=== PATIENT | male | born 1975 | race Caucasian/White ===

== ENCOUNTER → 2017-11-15 08:52 | Outpatient (CLI) | payer OTHER, SELFPAY ==
[2017-11-15 10:35] LABS: Absolute Lymphocyte Count 1.81 X10^3/ul (0.83-4.51); Absolute Neutrophil Count 2.4 X10^3/uL (2.0-7.7); Basophil# 0.03 X10^3/uL; Basophil% 0.6 % (0-1); Eosinophil# 0.22 X10^3/uL; Eosinophils% 4.6 % (0-5); Hematocrit 46.6 % (40-54); Hemoglobin 15.1 g/dl (13.0-16.5); Lymphocyte # 1.81 X10^3/ul (4.0); Lymphocyte % 37.6 % (19-41); Mean Corp Hgb Conc 32.4 g/gl (32-36); Mean Corpuscular Hgb 26.5 pg (27.0-32.0); Mean Corpuscular Volume 81.9 fL (80-94); Monocyte# 0.39 X10^3/uL; Monocyte% 8.1 % (0-10); Neutrophil # 2.37 X10^3/uL (2.7-7.7); Neutrophil % 49.1 % (47-70); Platelet Count 117 K/mm3 (150-450); RBC Distribution Width CV 13.6 % (11.6-14.6); RBC Distribution Width SD 40.7 fl (35.1-43.9); Red Blood Count 5.69 M/mm3 (4.6-6.2); White Blood Count 4.8 K/mm3 (4.4-11.0)
[2017-11-15 10:40] LABS: Differential Indicated SCAN CRITERIA MET; POSITIVE COUNT NO; POSITIVE DIFFERENTIAL NO; POSITIVE MORPHOLOGY YES
[2017-11-15 11:00] LABS: Microalbumin,Random Urine 5.5 mg/L (NO RANGE EST.); Microalbumin:Creatinine Ratio 3.6 mg/g CRE (<30 mg/g CRE)
[2017-11-15 12:07] LABS: AST(SGOT) 40 U/L (15-37); Alanine Aminotransfer ALT/SGPT 99 U/L (16-61); Albumin, Serum 3.6 g/dL (3.2-5.0); Alkaline Phosphatase 54 U/L (45-117); Anion Gap 7 (5-15); BUN 12 mg/dL (7-18); BUN/Creat Ratio 11.5 RATIO (10-20); CPK Total, Creatine Kinase 294 U/L (39-308); CRP < 2.90 mg/L (0.0-3.0); Calcium,Total 8.6 mg/dL (8.5-10.1); Chloride 108 mmol/L (98-107); Cholesterol 132 mg/dL (200); Creatinine, Serum 1.04 mg/dL (0.70-1.30); EST Glomerular Filtration Rate 83 mL/min (>60); Est Glom Filt Rate - Afr Amer 101 mL/min (>60); Globulin 3.5 g/dL (2.2-4.2); Glucose 82 mg/dL (74-106); High Density Lipoprotein 37 mg/dL; Potassium 4.1 mmol/L (3.5-5.1); Protein, Total 7.1 g/dL (6.4-8.2); Rheumatoid Factor < 10.0 IU/mL (<15); Sodium Level 143 mmol/L (136-145); Thyroid Stim Hormone (TSH) 1.49 uIU/mL (0.358-3.74); Triglycerides 113 mg/dL; Very Low Density Lipoprotein 23 mg/dL (5-40)
[2017-11-19 11:07] LABS: ANTINUCLEAR ANTIBODIES DIRECT Negative (Negative)
== END ==
PROVIDERS: Family Provider Family Medicine; PCP Family Medicine; Visit Provider Family Medicine
DX: R07.89 Other chest pain (principal)
CPT/HCPCS: 36415; 80053; 80061; 82043; 82550; 82570; 84443; 85025; 86038; 86140; 86431

== ENCOUNTER → 2017-12-06 13:46 | Outpatient (CLI) | payer OTHER, SELFPAY ==
--- NOTE | 2017-12-06 13:48 | ECHOD_ITS ---
Reason For Study: Atypical Chest Pain Procedure This was a 2D Doppler, Color Flow transthoracic echocardiogram. Exam performed in department. Left Ventricle Normal LV size. Mild concentric left ventricular hypertrophy. Left ventricular systolic function is normal. The estimated ejection fraction is 55 %. Stage 1 diastolic dysfunction. No regional wall motion abnormalities noted. Right Ventricle Normal RV size. Normal systolic function. Atria Normal left atrium. Normal right atrium. Mitral Valve Normal mitral valve. Tricuspid Valve Normal tricuspid valve. Mild tricuspid valve insufficiency. Pulmonary artery systolic pressure is 32 mmHg. Aortic Valve Normal aortic valve. Trisinus/trileaflet aortic valve. Pulmonic Valve Normal pulmonic valve. Great Vessels Normal aortic root. The pulmonary artery is normal size. Normal inferior vena cava. Pericardium/Pleural No pericardial effusion. MMode/2D Measurements & Calculations LVIDd: 5.7 cm IVSd: 1.3 cm Ao root diam: 3.7 cm LVIDs: 3.8 cm LVPWd: 1.2 cm LA dimension: 3.5 cm RVDd: 3.7 cm FS: 32.4 % LAV(MOD-bp): 55.0 ml LVAd ap4: 41.9 cm2 SV(MOD-sp4): 101.0 ml LAV(MOD-bp) Indexed: 23.6 ml/m2 EDV(MOD-sp4): 160.5 ml LAV(MOD-sp2): 63.6 ml EDV(sp4-el): 170.1 ml LAV(MOD-sp4): 42.3 ml LVAs ap4: 23.5 cm2 ESV(MOD-sp4): 59.5 ml ESV(sp4-el): 60.4 ml EF(MOD-sp4): 62.9 % EF(sp4-el): 64.5 % SV(sp4-el): 109.8 ml LA A4 area: 16.4 cm2 RA A4 area: 14.2 cm2 Time Measurements MV dec time: 0.18 sec Doppler Measurements & Calculations MV E max duke: 56.0 cm/sec Lat Peak E' Duke: 9.4 cm/sec Med Peak E' Duke: 11.1 cm/sec MV A max duke: 67.6 cm/sec E/E' lat: 5.9 E/E' med: 5.0 MV E/A: 0.83 MV V2 max: 73.3 cm/sec MV P1/2t max duke: 66.4 cm/sec Ao V2 max: 101.4 cm/sec MV max P.2 mmHg MV P1/2t: 88.6 msec Ao max P.1 mmHg MV V2 mean: 43.3 cm/sec MV dec slope: 219.6 cm/sec2 Ao V2 mean: 72.5 cm/sec MV mean P.88 mmHg MVA(P1/2t): 2.5 cm2 Ao mean P.3 mmHg MV V2 VTI: 21.5 cm Ao V2 VTI: 21.6 cm LV V1 max: 91.6 cm/sec PA V2 max: 92.9 cm/sec TR max duke: 258.5 cm/sec LV V1 max P.4 mmHg TR max P.7 mmHg LV V1 mean P.7 mmHg LV V1 mean: 60.3 cm/sec LV V1 VTI: 18.8 cm Interpretation Summary Normal LV size. Mild concentric left ventricular hypertrophy. Left ventricular systolic function is normal. The estimated ejection fraction is 55 %. Stage 1 diastolic dysfunction. Mild tricuspid valve insufficiency. Ordering Physician: Pa Maynard Referring Physician: Pa Maynard Performed By: Wayne Galarza RCS
== END ==
PROVIDERS: Family Provider Family Medicine; PCP Family Medicine; Visit Provider Family Medicine
DX: R07.89 Other chest pain (principal)
CPT/HCPCS: 93306

== ENCOUNTER → 2017-12-13 11:00 | Outpatient (CLI) | payer OTHER, SELFPAY ==
--- NOTE | 2017-12-13 15:17 | STRESSREP ---
Stress Test Report Exercise stress test. 42-year-old man with a history of atypical chest pain. Stress protocol: Resting EKG demonstrates normal sinus rhythm with a rate of 87 bpm normal intervals and noted resting blood pressure 120/76 mmHg. The patient exercised according to regular James protocol for total duration of 10 minutes and 21 seconds. The patient completed 1 minutes and 21 seconds into stage IV of the James protocol. The maximum heart rate attained was 250 bpm which was a narrow complex tachycardia which was 140% of the maximum predicted heart rate. The patient appeared to have gone into this rhythm during stage IV at approximately 10 minutes and 17 seconds. There was associated mild lightheadedness. The entire duration of the above was approximately 5 seconds. The patient then broke out of this rhythm and went back into a sinus tachycardia. No chest pain was noted. The resting blood pressure 120/76 with a peak blood pressure 144/84 mmHg. Rate pressure product was 24,300. Conclusion: Exercise stress test with no EKG criteria for ischemia at a high workload Supraventricular tachyarrhythmia noted during exercise spontaneously converting back to sinus rhythm. Patient achieved 12.4 metabolic equivalents.
== END ==
PROVIDERS: Family Provider Family Medicine; PCP Family Medicine; Referring Provider Internal Medicine Cardiovascular Disease; Visit Provider Internal Medicine Cardiovascular Disease
DX: R07.9 Chest pain, unspecified (principal)
CPT/HCPCS: 93017

== ENCOUNTER → 2018-06-28 | Outpatient (CLI) | payer OTHER, SELFPAY ==
--- NOTE | 2018-06-28 09:29 | MRI_ITS ---
HISTORY: RIGHT shoulder pain, s/p fall on ice 3 1/2 mos ago, limited r.o.m EXAMINATION: MR Shoulder W/O Contrast TECHNIQUE: Multiplanar and multisequence MR images of the right shoulder. IV Contrast dosage and agent: None. COMPARISON: None FINDINGS: The right AC joint is preserved. No cuff impingement. Rotator cuff: The rotator cuff is intact without findings of tear, atrophy, or significant tendinosis. Articular cartilage: Cartilage is preserved. No joint effusion. No fluid collections within the subacromial/subdeltoid bursa. The bicipital long head tendon is normal in position. Bones: No fracture, marrow edema, or avascular necrosis. Several small subcortical cysts of the posterolateral humeral head beneath the infraspinatus. Not significant. MRI/Upper Ext Joint Only(Routine) IMPRESSION: 1. Negative exam. Intact rotator cuff. No bursitis or impingement seen, right shoulder. at 0227 Reported and signed by: Francois Oleary MD Electronically Signed: Francois Oleary, at 2:26 EDT Tel , Service support ,
== END | disposition home or self-care (01) ==
PROVIDERS: Family Provider Family Medicine; PCP Family Medicine; Referring Provider Physician Assistant; Visit Provider Physician Assistant
DX: M25.511 Pain in right shoulder (principal)
CPT/HCPCS: 73221

== ENCOUNTER 2018-09-13 12:00 | Outpatient (RCR) | payer OTHER, SELFPAY ==
--- NOTE | 2018-07-10 14:31 | HP.PTEVAL_ITS ---
Patient's Visit Information FELIZ KRUEGER is a 43 year old M referred to Physical Therapy by Misael Gastelum PA-C with a diagnosis of RIGHT SHOULDER PAIN. Date of Evaluation: 07/10/18 Physical Therapist: Raul Keller PT, Cert MDT, [facility] - Visit Plan Frequency: 2x /Week Duration: 4 Weeks Plan: INTERVENTIONS RTC/SCPULAR STRENGTHENING,POSTURAL EXERCISES,MODLATIES NEEDED - Subjective Findings: This 43 y/o male presents to physical therapy with right shoulder pain. Patient injuried in Feb slipped on ice fell on right side . Patient developed right shoulder pain progressively worse then [facility] had MRI ,tried cortizone injection. Patient seen several consults. Patient pain located posterior delltoid. Aggraveting factors adduction ,reaching backward ,extreme pain. Patient denies parathesia/tingling. Sleeping okay at night. Patient symptoms affects QOL and function with ADL's. Patient symptoms affect function and housework .patient has no pain at rest. 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 PLAPATION: unremarkable. NEURO: INTACT. AROM: shoulder flexion 140 degrees,abduction 145 degrees, ER 90 degrees,pain with OP ,IR 50 DEGREES pain. MMT: RTC 4/5,Deltoid 4/5,MT/LT/ROMBOIDS 3/5 pain ,protraction 4-/5. CERVICAL ROM: WNL no pain - Special Tests C/S Radiculapathy - Left Upper limb tension test: Negative C/S Radiculapathy - Right Upper limb tension test: Negative C/S Radiculapathy - Left Spurlings: Negative C/S Radiculapathy - Right Spurlings: Negative - Goals Goal 1:: Independant with HEP Goal Time Frame: 4-6 Weeks Goal 2:: Decrease pain by 60% or greater to improve function with ADL'S Goal Time Frame: 4-6 Weeks Goal 3:: Patient improve AROM symmtrical right to left WNL for function. Goal Time Frame: 4-6 Weeks Goal 4:: Patient to improve strength middle/lower traps/romboids by 4-/5 to improve function. Goal Time Frame: 4-6 Weeks Goal 5:: Patient to improve quick dash by 5 points or greater to improve function. Goal Time Frame: 4-6 Weeks - Rehabilitation Potential Physical Therapy Diagnosis: This patient has right shoulder capsular strain with weakness of scapular muscles MT/LT/rhomboids with decrease ROM affects ADL'S Rehabilitation Potential: Good - Anticipated Interventions Patient/Client Instruction: Educate patient on: Condition, Plan of Care For the Purpose of:: To decrease pain, To increase ROM, To improve muscle performance and motor function, To improve ability to perform ADL's, To increase tolerance to activity/condition/position, To decrease level of supervision to perform tasks, To improve health of tissue, To decrease soft tissue restriction, To increase flexibility/ROM, To improve ability to perform tasks related to life management Therapeutic Exercise to Include: Strength training, Postural training, Flexibilty training, Active ROM, Scapular Strength/Stabilization Comment: RTC For the Purpose of:: To decrease pain, To increase ROM, To improve muscle performance and motor function, To improve ability to perform ADL's, To increase tolerance to activity/condition/position, To improve performance and independence with ADL's, To improve ability of physical actions for home/community/work/leisure, To improve health of tissue, To decrease soft tissue restriction, To increase flexibility/ROM, To reduce risk of recurrence, To improve ability to perform tasks related to life management TENS: Yes IF ES: Yes Cryotherapy (ice pack, ice massage): Yes Thermo therapy (hot pack): Yes Ultrasound (thermal/non thermal): Yes For the Purpose of:: To decrease pain, To increase ROM, To improve nutrient delivery to tissue, To increase oxygenation perfusion, To improve health of tissue, To decrease soft tissue restriction Thank you for the opportunity to evaluate your patient. For Medicare and Medicare HMO plans, please review the plan of care and approve it. It will need to be FAXED BACK to us at [phone] for Medicare purposes. For Medicare only, by signing this I certify the plan of care. Please let me know if there are questions or concerns regarding this plan of care. Physician Signature: Date:
--- NOTE | 2018-07-10 14:39 | HP.PTEVAL ---
Patient's Visit Information FELIZ KRUEGER is a 43 year old M referred to Physical Therapy by Misael Gastelum PA-C with a diagnosis of RIGHT SHOULDER PAIN. Date of Evaluation: 07/10/18 Physical Therapist: Raul Keller PT, Cert MDT, [facility] - Visit Plan Frequency: 2x /Week Duration: 4 Weeks Plan: INTERVENTIONS RTC/SCPULAR STRENGTHENING,POSTURAL EXERCISES,MODLATIES NEEDED - Subjective Findings: This 43 y/o male presents to physical therapy with right shoulder pain. Patient injuried in Feb slipped on ice fell on right side . Patient developed right shoulder pain progressively worse then [facility] had MRI ,tried cortizone injection. Patient seen several consults. Patient pain located posterior delltoid. Aggraveting factors adduction ,reaching backward ,extreme pain. Patient denies parathesia/tingling. Sleeping okay at night. Patient symptoms affects QOL and function with ADL's. Patient symptoms affect function and housework .patient has no pain at rest. 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 PLAPATION: unremarkable. NEURO: INTACT. AROM: shoulder flexion 140 degrees,abduction 145 degrees, ER 90 degrees,pain with OP ,IR 50 DEGREES pain. MMT: RTC 4/5,Deltoid 4/5,MT/LT/ROMBOIDS 3/5 pain ,protraction 4-/5. CERVICAL ROM: WNL no pain - Special Tests C/S Radiculapathy - Left Upper limb tension test: Negative C/S Radiculapathy - Right Upper limb tension test: Negative C/S Radiculapathy - Left Spurlings: Negative C/S Radiculapathy - Right Spurlings: Negative R Shoulder External Rotation Lag Test - RC Tear: Negative R Shoulder Supine Impingement Test - RC Tear: Negative R Shoulder Lift Off Test - Subscapular Tear: Negative R Shoulder Drop Sign - IS Test: Negative R Shoulder Empty Can - SS: Negative R Shoulder Belly Press - SupScap: Negative R Shoulder Neer - Impingement: Positive R Shoulder [place] - Impingement: Positive R Shoulder Yeargasons - SLAP: Negative R Shoulder Apprehension Test - Anterior Instability: Negative R Shoulder Sulcus Sign - Inferior Laxity: Negative R Shoulder Apprehension/Relocaton - SLAP: Negative R Shoulder AC Resisted - AC: Negative - Goals Goal 1:: Independant with HEP Goal Time Frame: 4-6 Weeks Goal 2:: Decrease pain by 60% or greater to improve function with ADL'S Goal Time Frame: 4-6 Weeks Goal 3:: Patient improve AROM symmtrical right to left WNL for function. Goal Time Frame: 4-6 Weeks Goal 4:: Patient to improve strength middle/lower traps/romboids by 4-/5 to improve function. Goal Time Frame: 4-6 Weeks Goal 5:: Patient to improve quick dash by 5 points or greater to improve function. Goal Time Frame: 4-6 Weeks - Rehabilitation Potential Physical Therapy Diagnosis: This patient has right shoulder capsular strain with weakness of scapular muscles MT/LT/rhomboids with decrease ROM affects ADL'S Rehabilitation Potential: Good - Anticipated Interventions Patient/Client Instruction: Educate patient on: Condition, Plan of Care For the Purpose of:: To decrease pain, To increase ROM, To improve muscle performance and motor function, To improve ability to perform ADL's, To increase tolerance to activity/condition/position, To decrease level of supervision to perform tasks, To improve health of tissue, To decrease soft tissue restriction, To increase flexibility/ROM, To improve ability to perform tasks related to life management Therapeutic Exercise to Include: Strength training, Postural training, Flexibilty training, Active ROM, Scapular Strength/Stabilization Comment: RTC For the Purpose of:: To decrease pain, To increase ROM, To improve muscle performance and motor function, To improve ability to perform ADL's, To increase tolerance to activity/condition/position, To improve performance and independence with ADL's, To improve ability of physical actions for home/community/work/leisure, To improve health of tissue, To decrease soft tissue restriction, To increase flexibility/ROM, To reduce risk of recurrence, To improve ability to perform tasks related to life management TENS: Yes IF ES: Yes Cryotherapy (ice pack, ice massage): Yes Thermo therapy (hot pack): Yes Ultrasound (thermal/non thermal): Yes For the Purpose of:: To decrease pain, To increase ROM, To improve nutrient delivery to tissue, To increase oxygenation perfusion, To improve health of tissue, To decrease soft tissue restriction Thank you for the opportunity to evaluate your patient. For Medicare and Medicare HMO plans, please review the plan of care and approve it. It will need to be FAXED BACK to us at [phone] for Medicare purposes. For Medicare only, by signing this I certify the plan of care. Please let me know if there are questions or concerns regarding this plan of care. Physician Signature: Date:
--- NOTE | 2018-10-10 15:17 | HP.PTDCSUM_ITS ---
HP - PT D/C Summary It has been my pleasure to treat FELIZ KRUEGER under orders from Misael Gastelum PA-C, for the diagnosis of RIGHT SHOULDER PAIN for a total of 14 visit(s). Discharge Date: 10/10/18 Please see the following information for a summary of their discharge status. - Subjective Subjective: Seen DR looked at MRI conts to be -. Pain is better overall - Pain Right Shoulder Pain Intensity (Out of 10): 1 - Overall Improvement % Improvement: 50 - Objective Objective/Function: Марина tx well with tx well with strengthening ex's no pain. RTC: 4/5. MIDDLE TRAPS 4-/5 mild pain. DELTOID 4/5 A,L 4/5 - Goals Goal 1:: Independant with HEP Goal 2:: Decrease pain by 60% or greater to improve function with ADL'S Goal 3:: Patient improve AROM symmtrical right to left WNL for function. Goal 4:: Patient to improve strength middle/lower traps/romboids by 4-/5 to improve function. Goal 5:: Patient to improve quick dash by 5 points or greater to improve function. - Plan Plan: Cont with POC 1-2x/wk for 4weeks RTC/SCAPULAR,POSTURAL EX'S - D/C Information Discharge Comments: Pateint decided to complete PT at [facility] If there are questions or concerns regarding this patient's physical therapy, please feel free to call me at [phone]. Thank you for the referral of this patient. Sincerely, Raul Keller, PT, Cert MDT, [facility]
== END 2018-09-13 19:00 | disposition home or self-care (01) ==
LOC: PT 12:00
PROVIDERS: Family Provider Family Medicine; PCP Family Medicine; Referring Provider Physician Assistant; Visit Provider Physician Assistant
DX: M25.511 Pain in right shoulder (principal)
CPT/HCPCS: 97014; 97110; 97161; 97530; G0283

== ENCOUNTER → 2020-05-28 09:31 | Outpatient (CLI) | payer OTHER, SELFPAY ==
[2017-12-12 10:12] VITALS: BMI 30.4
[2020-05-28 10:12] LABS: Absolute Lymphocyte Count 1.78 X10^3/uL (0.83-4.51); Absolute Neutrophil Count 2.9 X10^3/uL (2.0-7.7); Basophil# 0.05 X10^3/uL; Eosinophil# 0.16 X10^3/uL; Eosinophils% 3.1 % (0-5); Hematocrit 48.8 % (40-54); Lymphocyte # 1.78 X10^3/ul (4.0); Mean Corp Hgb Conc 30.7 g/dL (32-36); Mean Corpuscular Hgb 26.3 pg (27.0-32.0); Mean Corpuscular Volume 85.6 fL (80-94); Mean Platelet Vol. 13.4 fl (6.2-12.0); Monocyte# 0.37 X10^3/uL; Monocyte% 7.1 % (0-10); NRBC Flagged by Analyzer 0 % (0-5); Neutrophil # 2.86 X10^3/uL (2.7-7.7); Neutrophil % 54.4 % (47-70); Platelet Count 132 K/mm3 (150-450); RBC Distribution Width CV 13.4 % (11.6-14.6); RBC Distribution Width SD 42.1 fl (35.1-43.9); White Blood Count 5.2 K/mm3 (4.4-11.0)
[2020-05-28 10:38] LABS: ALB/GLOB Ratio 1.2 RATIO (0.9-2.4); AST(SGOT) 29 U/L (15-37); Alanine Aminotransfer ALT/SGPT 77 U/L (16-61); Albumin, Serum 3.8 g/dL (3.2-5.0); Alkaline Phosphatase 64 U/L (45-117); Anion Gap 5 (5-15); BUN 14 mg/dL (7-18); BUN/Creat Ratio 14.1 RATIO (10-20); Calcium,Total 8.8 mg/dL (8.5-10.1); Chloride 108 mmol/L (98-107); Cholesterol 147 mg/dL (200); Creatinine, Serum 0.99 mg/dL (0.70-1.30); EST Glomerular Filtration Rate 87 mL/min (>60); Est Glom Filt Rate - Afr Amer 105 mL/min (>60); Globulin 3.2 g/dL (2.2-4.2); Glucose 90 mg/dL (74-106); High Density Lipoprotein 46 mg/dL; Potassium 4.4 mmol/L (3.5-5.1); Sodium Level 140 mmol/L (136-145); Triglycerides 135 mg/dL; Very Low Density Lipoprotein 27 mg/dL (5-40)
[2020-05-28 10:40] LABS: Hemoglobin A1c 5.5 % (3.8-5.6)
== END ==
PROVIDERS: PCP Family Medicine; Referring Provider Family Medicine; Visit Provider Family Medicine
DX: K76.0 Fatty (change of) liver, not elsewhere classified (principal)
CPT/HCPCS: 36415; 80053; 80061; 83036; 85025

== ENCOUNTER → 2023-02-22 | Outpatient (CLI) | payer OTHER, SELFPAY ==
[2023-02-22 16:02] LABS: Absolute Lymphocyte Count 2.32 X10^3/uL (0.83-4.51); Absolute Neutrophil Count 6.3 X10^3/uL (2.0-7.7); Basophil# 0.07 X10^3/uL; Basophil% 0.7 % (0-1); Eosinophil# 0.19 X10^3/uL; Hematocrit 47.9 % (40-54); Hemoglobin 15.2 g/dL (13.0-16.5); Lymphocyte # 2.32 X10^3/ul (0.83-4.51); Lymphocyte % 24.3 % (19-41); Mean Corp Hgb Conc 31.7 g/dL (32-36); Mean Corpuscular Hgb 26.9 pg (27.0-32.0); Mean Corpuscular Volume 84.6 fL (80-94); Mean Platelet Vol. 13.1 fl (6.2-12.0); Monocyte# 0.63 X10^3/uL; Monocyte% 6.6 % (0-10); NRBC Flagged by Analyzer 0 % (0-5); Neutrophil # 6.29 X10^3/uL (2.7-7.7); Neutrophil % 66.1 % (47-70); Platelet Count 171 K/mm3 (150-450); RBC Distribution Width CV 13.5 % (11.6-14.6); Red Blood Count 5.66 M/mm3 (4.6-6.2); White Blood Count 9.5 K/mm3 (4.4-11.0)
[2023-02-22 16:21] LABS: Homocysteine 6.8 umol/L (3.2-10.7)
[2023-02-22 16:37] LABS: Insulin 38.6 mU/L (2.6-37.6); Vitamin B12 567 pg/mL (211-911); Vitamin D,25 Hydroxy 50.2 ng/mL
[2023-02-22 16:53] LABS: Hemoglobin A1c 5.5 % (3.8-5.6)
[2023-02-22 19:04] LABS: AST(SGOT) 40 U/L (15-37); Alanine Aminotransfer ALT/SGPT 47 U/L (16-61); Albumin, Serum 3.9 g/dL (3.2-5.0); Alkaline Phosphatase 64 U/L (45-117); Anion Gap 6 (5-15); BUN 22 mg/dL (7-18); BUN/Creat Ratio 22.7 RATIO (10-20); CRP, High Sensitivity Cardiac 0.53 mg/L; Calcium,Total 8.8 mg/dL (8.5-10.1); Chloride 104 mmol/L (98-107); Cholesterol 179 mg/dL (200); Creatinine, Serum 0.97 mg/dL (0.70-1.30); EST Glomerular Filtration Rate 88 mL/min (>60); Est Glom Filt Rate - Afr Amer 107 mL/min (>60); Ferritin 43 ng/mL (26-388); Free T3 2.9 pg/mL (2.18-3.98); Globulin 3.8 g/dL (2.2-4.2); Glucose 95 mg/dL (74-106); High Density Lipoprotein 50 mg/dL; PSA,Total - Annual Screen 2.18 ng/mL (0.00-4.00); Potassium 3.9 mmol/L (3.5-5.1); Protein, Total 7.7 g/dL (6.4-8.2); Sodium Level 140 mmol/L (136-145); Thyroid Stim Hormone (TSH) 1.36 uIU/mL (0.358-3.74); Triglycerides 345 mg/dL; Uric Acid 6.1 mg/dL (3.5-7.2); Very Low Density Lipoprotein 69 mg/dL (5-40)
[2023-03-07 17:07] LABS: Lipoprotein A 107.6 nmol/L (<75.0); Testosterone, % Free 3.55 % (1.50-4.20); Testosterone, Free 8.02 ng/dL (5.00-21.00); Testosterone, Total 226 ng/dL (264-916)
== END | disposition home or self-care (01) ==
PROVIDERS: PCP Family Medicine; Referring Provider Family Medicine; Visit Provider Family Medicine
DX: Z12.5 Encounter for screening for malignant neoplasm of prostate (principal); K76.0 Fatty (change of) liver, not elsewhere classified; R76.8 Other specified abnormal immunological findings in serum; E66.9 Obesity, unspecified; Z68.33 Body mass index [BMI] 33.0-33.9, adult
CPT/HCPCS: 36415; 80053; 80061; 82306; 82533; 82607; 82670; 82728; 82746; 83036; 83090; 83525; 83695; 84153; 84402; 84403; 84439; 84443; 84481; 84550; 85025; 86141; G0103

== ENCOUNTER → 2023-03-17 | Outpatient (CLI) | payer OTHER, SELFPAY ==
[2023-03-17 10:53] LABS: Insulin 7.9 mU/L (2.6-37.6)
[2023-03-17 10:56] LABS: ALB/GLOB Ratio 0.9 RATIO (0.9-2.4); AST(SGOT) 38 U/L (15-37); Alanine Aminotransfer ALT/SGPT 42 U/L (16-61); Albumin, Serum 3.4 g/dL (3.2-5.0); Alkaline Phosphatase 56 U/L (45-117); Anion Gap 4 (5-15); BUN 17 mg/dL (7-18); BUN/Creat Ratio 17.7 RATIO (10-20); Calcium,Total 8.7 mg/dL (8.5-10.1); Chloride 107 mmol/L (98-107); Creatinine, Serum 0.96 mg/dL (0.70-1.30); EST Glomerular Filtration Rate 89 mL/min (>60); Est Glom Filt Rate - Afr Amer 108 mL/min (>60); Globulin 3.7 g/dL (2.2-4.2); Glucose 92 mg/dL (74-106); Potassium 4.2 mmol/L (3.5-5.1); Protein, Total 7.1 g/dL (6.4-8.2); Sodium Level 139 mmol/L (136-145)
[2023-03-19 12:08] LABS: CHOLESTEROL TOTAL 167 mg/dL (100-199); HDL-C 52 mg/dL (>39); HDL-P TOTAL 31.1 umol/L (>=30.5); INSULIN RESISTANCE SCORE 42 (<=45); LDL SIZE 21.2 nm (>20.5); LDL-C (NIH CALC) 101 mg/dL (0-99); LDL-P 1197 nmol/L (<1000); SMALL LDL-P 548 nmol/L (<=527); TRIGLYCERIDES 72 mg/dL (0-149)
[2023-03-25 09:07] LABS: Sex Hormone-binding Globulin 22.7 nmol/L (16.5-55.9); Testosterone, % Free 2.74 % (1.50-4.20); Testosterone, Free 10.63 ng/dL (5.00-21.00); Testosterone, Total 388 ng/dL (264-916)
== END | disposition home or self-care (01) ==
PROVIDERS: PCP Family Medicine; Referring Provider Family Medicine; Visit Provider Family Medicine
DX: K76.0 Fatty (change of) liver, not elsewhere classified (principal); E78.41 Elevated Lipoprotein(a); R79.89 Other specified abnormal findings of blood chemistry; E16.1 Other hypoglycemia
CPT/HCPCS: 36415; 80053; 80061; 83525; 83704; 84270; 84402; 84403

== ENCOUNTER → 2024-10-13 | Outpatient (CLI) | payer OTHER, SELFPAY ==
[2024-10-13 09:26] LABS: Hematocrit 45.1 % (40-54); Hemoglobin 14.5 g/dL (13.0-16.5); Immature Granulocytes Count 0.010 X10^3/uL (0.0-0.0); Mean Corp Hgb Conc 32.2 g/dL (32-36); Mean Corpuscular Volume 85.4 fL (80-94); Mean Platelet Vol. 13.3 fl (6.2-12.0); NRBC Flagged by Analyzer 0 % (0-5); Platelet Count 127 K/mm3 (150-450); RBC Distribution Width CV 13.2 % (11.6-14.6); RBC Distribution Width SD 41.4 fl (35.1-43.9); Red Blood Count 5.28 M/mm3 (4.6-6.2); White Blood Count 4.4 K/mm3 (4.4-11.0)
[2024-10-13 11:15] LABS: AST(SGOT) 34 U/L (<=37); Alanine Aminotransfer ALT/SGPT 39 U/L (<=46); Albumin, Serum 4.1 g/dL (3.5-5.0); Alkaline Phosphatase 57 U/L (40-129); Anion Gap 10 (5-15); BUN 24 mg/dL (4-19); BUN/Creat Ratio 24.0 RATIO (10-20); Calcium,Total 9.1 mg/dL (7.6-11.0); Carbon Dioxide 26.4 mmol/L (21.0-32.0); Chloride 105 mmol/L (98-108); Cholesterol 181 mg/dL (<=200); Follicle Stimulating Hormone 2.2 mIU/mL; Globulin 2.7 g/dL (2.2-4.2); Glucose 92 mg/dL (70-99); Low Density Lipoprotein Calc. 114 mg/dL; Magnesium 2.1 mg/dL (1.5-2.2); PSA,Total - Annual Screen 1.12 ng/mL (0.02-4.00); Potassium 4.1 mmol/L (3.3-5.1); Triglycerides 109 mg/dL; Very Low Density Lipoprotein 22 mg/dL (5-40); Vitamin D,25 Hydroxy 37.0 ng/mL (30-100); cholesterol:hdl ratio screen 3.99
== END | disposition home or self-care (01) ==
LOC: LAB 08:08
PROVIDERS: PCP Family Medicine; Visit Provider Family Medicine
DX: Z12.5 Encounter for screening for malignant neoplasm of prostate (principal); K76.0 Fatty (change of) liver, not elsewhere classified; R79.89 Other specified abnormal findings of blood chemistry
CPT/HCPCS: 36415; 80053; 80061; 82306; 82627; 82670; 83001; 83002; 83036; 83525; 83735; 84100; 84146; 84153; 84270; 84402; 84403; 85025; 82626; G0103

== ENCOUNTER → 2024-10-29 | Outpatient (CLI) | payer OTHER, SELFPAY ==
--- OUTSIDE RECORDS SUMMARY | 2024-10-29 07:11 | XMS RPT_ITS | CCD ---
Author Organization [facility] Care Team Providers Care Manufacturing Engineer Assembly Name Role Phone Caesar MARRUFO, Dr. Winn Primary Care Provider Caesar MARRUFO, Dr. Winn Attending Provider Pa Maynard Primary Care Unavailable Pa Maynard Attending Unavailable Pa Maynard Attending Unavailable Pa Maynard Referring Unavailable Pa Maynard Primary Care Unavailable Problems Problem Classification Problem Date Documented Date Episodic/Chronic Heart valve disorders (3 sources) Tricuspid incompetence, non-rheumatic ; Translations: [Nonrheumatic tricuspid (valve) insufficiency] 12-11-2017 Chronic Nonspecific chest pain (3 sources) Chest pain; Translations: [Chest pain, unspecified] 12-11-2017 Episodic Other liver diseases (1 source) Fatty (change of) liver, not elsewhere classified; Translations: [Fatty (change of) liver, not elsewhere classified] Onset: 10-22-2024 Chronic Other screening for suspected conditions (not mental disorders or infectious disease) (4 sources) Electrocardiogram abnormal; Translations: [Abnormal electrocardiogram [ECG] [EKG]] Onset: 10-15-2024 12-11-2017 Episodic Results Test Name Value Interpretation Reference Range Facility DHEA Sulfateon 10-16-2024 DHEA SULFATE 145.0 ug/dL Normal 71.6-375.4 [facility] Comment on above: Order Comment: Order Date: 10/07/24 Order Info: 0184-1 - CBCD Performed By: #### L 3100.5310, L500.4050, L501.9910, L3500.0000, L100.0100 #### [facility] [address] [place], [address] Insulin Levelon 10-16-2024 INSULIN,FASTING 10.5 uIU/mL Normal 2.6-24.9 [facility] Comment on above: Order Comment: Order Date: 10/07/24 Order Info: 0184- - CBCD Performed By: #### L 3100.5310, L500.4050, L501.9910, L3500.0000, L100.0100 #### [facility] [address] [place], [place], [address] PROLACTIN 4465on 10-16-2024 PROLACTIN 17.6 ng/mL Normal 3.9-22.7 [facility] Comment on above: Order Comment: Order Date: 10/07/24 Order Info: 0184 - CBCD Performed By: #### L 3100.5310, L500.4050, L501.9910, L3500.0000, L100.0100 #### [facility] [address] [place], [place], [address] Sex Hormone-binding Globulin on 10-16-2024 SHBG 16.8 nmol/L Normal 16.5-55.9 [facility] Comment on above: Order Comment: Order Date: 10/07/24 Order Info: 0184- - CBCD Result Comment: Perf ormed at: [facility] [address] [id number] [employer] Officer [employer]: Brennen Newberry PhD, Phone: [phone] Performed at: [facility] [address] [id number] Weapons Officer [employer]: Beba Siegel MD, Phone: [phone] Performed By: #### L 3100.5310, L500.4050, L501.9910, L3500.0000, L100.0100 #### [facility] [address] [place], [place], [address] Testosterone, Total / Freeon 10-16-2024 TESTOSTER,FREE 9.78 ng/dL Normal 5.00-21.00 [facility] Comment on above: Order Comment: Order Date: 10/07/24 Order Info: 0024-1 - TESTF N Performed By: #### L 3100.5310, L500.4050, L501.9910, L3500.0000, L100.0100 #### [facility] [address] [place], [address] TESTOSTER,TOTAL 286 ng/dL Normal 264-916 [facility] Comment on above: Order Comment: Order Date: 10/07/24 Order Info: 0024-1 - TESTF N Result Comment: Adul t male reference interval is based on a population of healthy nonobese males (BMI <30) between 19 and 39 years old. ledy Samayoa.al. JCEM 2017,102;4415-8414. PMID: [id number]. Performed By: #### L 3100.5310, L500.4050, L501.9910, L3500.0000, L100.0100 #### [facility] [address] [place], [address] TESTOSTERONE,%F 3.42 Normal 1.50-4.20 [facility] Comment on above: Order Comment: Order Date: 10/07/24 Order Info: 0024-1 - TESTF N Performed By: #### L 3100.5310, L500.4050, L501.9910, L3500.0000, L100.0100 #### [facility] [address] [place], [address] L3410.9992on 10-15-2024 [facility] Misc. COMMENT Normal . [facility] Comment on above: Order Comment: Order Date: 10/07/24 Order Info: 0184-1 - CBCD Result Comment: Test Ordered: 137650 Apolipoprotein B Apolipoprotein B 103 [H ] mg/dL BN Reference Range: <90 Desirable < 90 Borderline High 90 - 99 High 100 - 130 Very High >130 ASCVD RISK THERAPEUTIC TARGET CATEGORY APO B (mg/dL) Very High Risk <80 (if extreme risk <70) High Risk <90 Moderate Risk <90 Performed at: - [address] [id number] Weapons Officer [employer]: Beba Siegel MD, Phone: [phone] Performed at: - [facility] [place] [address] [place], [place] [id number] Weapons Officer [employer] Activity: Brennen Newberry PhD, Phone: [phone] Performed By: #### L 3100.5310, L500.4050, L501.9910, L3500.0000, L100.0100 #### [facility] [place], [address] Absolute lymphocyte countOrd ered By: Pa Maynard on 10-13-2024 Lymphocytes Auto (Unsp spec) [#/Vol] 1.78 10*3/uL 0.83-4.51 [facility] Absolute neutrophil countOrd ered By: Pa Maynard on 10-13-2024 Neutrophils (Bld) [#/Vol] 2.0 10*3/uL 2.0-7.7 [facility] Anion gap in Serum or Plasma Ordered By: Pa Maynard on 10-13-2024 Anion gap [Moles/Vol] 10 mmol/L 5-15 [facility] Automated lymphocyte count a s percentage of total leukocytesOrdered By: Pa Maynard on 10-13-2024 Lymphocytes/100 WBC Auto (Unsp spec) 40.5 % - [facility] BUN/creatinine ratioOrdered By: Pa Maynard on 10-13-2024 Urea nitrogen/Creatinine [Mass ratio] 24.0 mg/mg High 10-20 [facility] Basophil percentageOrdered B y: Pa Maynard on 10-13-2024 Basophils/100 WBC (Bld) 0.9 % 0-1 [facility] Bilirubin, totalOrdered By: Pa Maynard on 10-13-2024 Bilirubin [Mass/Vol] 0.43 mg/dL 0.00-1.30 [facility] CBC W/Diff, Automatedon 09-26 Absolute Lymph 1.78 X10 3/uL Normal 0.83-4.51 [facility] Comment on above: Order Comment: Order Date: 10/07/24 Order Info: 0184-1 - CBCD Performed By: #### L 3100.5310, L500.4050, L501.9910, L3500.0000, L100.0100 #### [facility] [address] [place], [address] Absolute Neut 2.0 X10 3/uL Normal 2.0-7.7 [facility] Comment on above: Order Comment: Order Date: 10/07/24 Order Info: 0184-1 - CBCD Performed By: #### L 3100.5310, L500.4050, L501.9910, L3500.0000, L100.0100 #### [facility] [address] [place], [address] Basophils/100 WBC (Bld) 0.9 % Normal 0-1 [facility] Comment on above: Order Comment: Order Date: 10/07/24 Order Info: 0184-1 - CBCD Performed By: #### L 3100.5310, L500.4050, L501.9910, L3500.0000, L100.0100 #### [facility] [address] [place], [address] Eosinophils/100 WBC (Bld) 5.5 % High 0-5 [facility] Comment on above: Order Comment: Order Date: 10/07/24 Order Info: 0184-1 - CBCD Performed By: #### L 3100.5310, L500.4050, L501.9910, L3500.0000, L100.0100 #### [facility] [address] [place], [address] Erythrocyte distribution width (RBC) [Ratio] 13.2 % Normal 11.6-14.6 [facility] Comment on above: Order Comment: Order Date: 10/07/24 Order Info: 0184-1 - CBCD Performed By: #### L 3100.5310, L500.4050, L501.9910, L3500.0000, L100.0100 #### [facility] [address] [place], [address] Hematocrit (Bld) [Volume fraction] 45.1 % Normal 40-54 [facility] Comment on above: Order Comment: Order Date: 10/07/24 Order Info: 0184-1 - CBCD Performed By: #### L 3100.5310, L500.4050, L501.9910, L3500.0000, L100.0100 #### [facility] [address] [place], [address] Hemoglobin (Bld) [Mass/Vol] 14.5 g/dL Normal 13.0-16.5 [facility] Comment on above: Order Comment: Order Date: 10/07/24 Order Info: 0184- - CBCD Performed By: #### L 3100.5310, L500.4050, L501.9910, L3500.0000, L100.0100 #### [facility] [address] [place], [address] IG% 0.200 Normal 0.0-0.9 [facility] Comment on above: Order Comment: Order Date: 10/07/24 Order Info: 0184- - CBCD Result Comment: IG% - Immature Granulocytes (promyelocytes, myelocytes and metamyelocytes) > 1% indicates that a LEFT SHIFT is Present. Performed By: #### L 3100.5310, L500.4050, L501.9910, L3500.0000, L100.0100 #### [facility] [address] [place], [address] Lymphocytes/100 WBC (Bld) 40.5 % Normal 19-41 [facility] Comment on above: Order Comment: Order Date: 10/07/24 Order Info: 0184-1 - CBCD Performed By: #### L 3100.5310, L500.4050, L501.9910, L3500.0000, L100.0100 #### [facility] [address] [place], [address] MCH (RBC) [Entitic mass] 27.5 pg Normal 27.0-32.0 [facility] Comment on above: Order Comment: Order Date: 10/07/24 Order Info: 018- - CBCD Performed By: #### L 3100.5310, L500.4050, L501.9910, L3500.0000, L100.0100 #### [facility] [address] [place], [address] MCHC (RBC) [Mass/Vol] 32.2 g/dL Normal 32-36 [facility] Comment on above: Order Comment: Order Date: 10/07/24 Order Info: 018- - CBCD Performed By: #### L 3100.5310, L500.4050, L501.9910, L3500.0000, L100.0100 #### [facility] [address] [place], [address] MCV (RBC) [Entitic vol] 85.4 fL Normal 80-94 [facility] Comment on above: Order Comment: Order Date: 10/07/24 Order Info: 018- - CBCD Performed By: #### L 3100.5310, L500.4050, L501.9910, L3500.0000, L100.0100 #### [facility] [address] [place], [address] Monocytes/100 WBC (Bld) 8.2 % Normal 0-10 [facility] Comment on above: Order Comment: Order Date: 10/07/24 Order Info: 018- - CBCD Performed By: #### L 3100.5310, L500.4050, L501.9910, L3500.0000, L100.0100 #### [facility] [address] [place], [address] Neutrophils/100 WBC (Bld) 44.7 % Low 47-70 [facility] Comment on above: Order Comment: Order Date: 10/07/24 Order Info: 0184-1 - CBCD Performed By: #### L 3100.5310, L500.4050, L501.9910, L3500.0000, L100.0100 #### [facility] [address] [place], [address] Nucleated RBC (Bld) [#/Vol] 0 10*3/uL Normal 0-5 [facility] Comment on above: Order Comment: Order Date: 10/07/24 Order Info: 0184- - CBCD Performed By: #### L 3100.5310, L500.4050, L501.9910, L3500.0000, L100.0100 #### [facility] [address] [place], [address] Platelet mean volume (Bld) [Entitic vol] 13.3 fL High 6.2-12.0 [facility] Comment on above: Order Comment: Order Date: 10/07/24 Order Info: 0184-1 - CBCD Performed By: #### L 3100.5310, L500.4050, L501.9910, L3500.0000, L100.0100 #### [facility] [address] [place], [address] Platelets (Bld) [#/Vol] 127 10*3/uL Low 150-450 [facility] Comment on above: Order Comment: Order Date: 10/07/24 Order Info: 0184-1 - CBCD Performed By: #### L 3100.5310, L500.4050, L501.9910, L3500.0000, L100.0100 #### [facility] [address] [place], [address] RBC (Bld) [#/Vol] 5.28 10*6/uL Normal 4.6-6.2 [facility] Comment on above: Order Comment: Order Date: 10/07/24 Order Info: 0184-1 - CBCD Performed By: #### L 3100.5310, L500.4050, L501.9910, L3500.0000, L100.0100 #### [facility] [address] [place], [address] RDW SD 41.4 fl Normal 35.1-43.9 [facility] Comment on above: Order Comment: Order Date: 10/07/24 Order Info: 0184-1 - CBCD Performed By: #### L 3100.5310, L500.4050, L501.9910, L3500.0000, L100.0100 #### [facility] [address] [place], [address] WBC (Bld) [#/Vol] 4.4 10*3/uL Normal 4.4-11.0 [facility] Comment on above: Order Comment: Order Date: 10/07/24 Order Info: 0184-1 - CBCD Performed By: #### L 3100.5310, L500.4050, L501.9910, L3500.0000, L100.0100 #### [facility] [address] [facility] [place], [address] Calculated very low density lipoprotein (VLDL) cholesterol measurementOrdered By: Pa Maynard on 10-13-2024 Calculated very low density lipoprotein (VLDL) cholesterol measurement 22 mg/dL 5-40 [facility] Carbon dioxide, total [Moles /volume] in Central venous bloodOrdered By: Pa Maynard on 10-13-2024 CO2 [Moles/Vol] 26.4 mmol/L 21.0-32.0 [facility] Chloride assayOrdered By: Delfino Maynard on 10-13-2024 Chloride [Moles/Vol] 105 mmol/L 98-108 [facility] Comprehensive Metabolic Prof ilon 10-13-2024 Albumin [Mass/Vol] 4.1 g/dL Normal 3.5-5.0 [facility] Comment on above: Order Comment: Order Date: 10/07/24 Order Info: 0786 - CMP Order Info: 28508-26 - PSA Performed By: #### L 3100.5310, L500.4050, L501.9910, L3500.0000, L100.0100 #### [facility] [address] [place], [address] Albumin/Globulin [Mass ratio] 1.5 {ratio} Normal 0.9-2.4 [facility] Comment on above: Order Comment: Order Date: 10/07/24 Order Info: 07 - CMP Order Info: 28508-26 - PSA Performed By: #### L 3100.5310, L500.4050, L501.9910, L3500.0000, L100.0100 #### [facility] [address] [place], [address] ALK PHOS 57 U/L Normal 40-129 [facility] Comment on above: Order Comment: Order Date: 10/07/24 Order Info: 0786 - CMP Order Info: 28508-26 - PSA Performed By: #### L 3100.5310, L500.4050, L501.9910, L3500.0000, L100.0100 #### [facility] [address] [facility] [place], [address] ALT [Catalytic activity/Vol] 39 U/L Normal <=46 [facility] Comment on above: Order Comment: Order Date: 10/07/24 Order Info: 0786 - CMP Order Info: 28508-26 - PSA Performed By: #### L 3100.5310, L500.4050, L501.9910, L3500.0000, L100.0100 #### [facility] [address] [place], [address] AST [Catalytic activity/Vol] 34 U/L Normal <=37 [facility] Comment on above: Order Comment: Order Date: 10/07/24 Order Info: 0786 - CMP Order Info: 28508-26 - PSA Performed By: #### L 3100.5310, L500.4050, L501.9910, L3500.0000, L100.0100 #### [facility] [address] [place], [address] Bilirubin [Mass/Vol] 0.43 mg/dL Normal 0.00-1.30 [facility] Comment on above: Order Comment: Order Date: 10/07/24 Order Info: 0786- - CMP Order Info: 28508-26 - PSA Performed By: #### L 3100.5310, L500.4050, L501.9910, L3500.0000, L100.0100 #### [facility] [address] [place], [address] BUN/CRE 24.0 RATIO High 10-20 [facility] Comment on above: Order Comment: Order Date: 10/07/24 Order Info: 0786- - CMP Order Info: 28508-26 - PSA Performed By: #### L 3100.5310, L500.4050, L501.9910, L3500.0000, L100.0100 #### [facility] [address] [place], [address] Calcium [Mass/Vol] 9.1 mg/dL Normal 7.6-11.0 [facility] Comment on above: Order Comment: Order Date: 10/07/24 Order Info: 0786- - CMP Order Info: 2857 - PSA Performed By: #### L 3100.5310, L500.4050, L501.9910, L3500.0000, L100.0100 #### [facility] [address] [place], [address] Chloride [Moles/Vol] 105 mmol/L Normal 98-108 [facility] Comment on above: Order Comment: Order Date: 10/07/24 Order Info: 0786-1 - CMP Order Info: 2857 - PSA Performed By: #### L 3100.5310, L500.4050, L501.9910, L3500.0000, L100.0100 #### [facility] [address] [place], [place], [address] CO2 [Moles/Vol] 26.4 mmol/L Normal 21.0-32.0 [facility] Comment on above: Order Comment: Order Date: 10/07/24 Order Info: 0786- - CMP Order Info: 2856-02 - PSA Performed By: #### L 3100.5310, L500.4050, L501.9910, L3500.0000, L100.0100 #### [facility] [address] [place], [place], [address] Creatinine [Mass/Vol] 0.99 mg/dL Normal 0.70-1.20 [facility] Comment on above: Order Comment: Order Date: 10/07/24 Order Info: 0786 - CMP Order Info: 2856-02 - PSA Performed By: #### L 3100.5310, L500.4050, L501.9910, L3500.0000, L100.0100 #### [facility] [address] [place], [place], [address] [phone] Normal 5-15 [facility] Comment on above: Order Comment: Order Date: 10/07/24 Order Info: 0786- - CMP Order Info: 2856-02 - PSA Performed By: #### L 3100.5310, L500.4050, L501.9910, L3500.0000, L100.0100 #### [facility] [address] [place], [place], [address] GFR/1.73 sq M.predicted among non-blacks MDRD (S/P/Bld) [Vol rate/Area] 93 mL/min/{1.73_m2} Normal >60 [facility] Comment on above: Order Comment: Order Date: 10/07/24 Order Info: 0786- - CMP Order Info: 2856-02 - PSA Result Comment: mL/m in/1.73m2 CKD-EPI Creatinine Equation (2020) Performed By: #### L 3100.5310, L500.4050, L501.9910, L3500.0000, L100.0100 #### [facility] [address] [place], [address] Globulin (S) [Mass/Vol] 2.7 g/dL Normal 2.2-4.2 [facility] Comment on above: Order Comment: Order Date: 10/07/24 Order Info: 0786- - CMP Order Info: 28508-26 - PSA Performed By: #### L 3100.5310, L500.4050, L501.9910, L3500.0000, L100.0100 #### [facility] [address] [place], [address] Glucose [Mass/Vol] 92 mg/dL Normal 70-99 [facility] Comment on above: Order Comment: Order Date: 10/07/24 Order Info: 0786- - CMP Order Info: 28508-26 - PSA Performed By: #### L 3100.5310, L500.4050, L501.9910, L3500.0000, L100.0100 #### [facility] [address] [place], [address] Potassium [Moles/Vol] 4.1 mmol/L Normal 3.3-5.1 [facility] Comment on above: Order Comment: Order Date: 10/07/24 Order Info: 0786- - CMP Order Info: 28508-26 - PSA Performed By: #### L 3100.5310, L500.4050, L501.9910, L3500.0000, L100.0100 #### [facility] [address] [place], [address] Sodium [Moles/Vol] 141 mmol/L Normal 133-145 [facility] Comment on above: Order Comment: Order Date: 10/07/24 Order Info: 0786- - CMP Order Info: 2857-1 - PSA Performed By: #### L 3100.5310, L500.4050, L501.9910, L3500.0000, L100.0100 #### [facility] [address] [place], [address] T PROT 6.8 g/dL Normal 5.9-8.4 [facility] Comment on above: Order Comment: Order Date: 10/07/24 Order Info: 0786-1 - CMP Order Info: 2857 - PSA Performed By: #### L 3100.5310, L500.4050, L501.9910, L3500.0000, L100.0100 #### [facility] [address] [place], [address] Urea nitrogen [Mass/Vol] 24 mg/dL High 4-19 [facility] Comment on above: Order Comment: Order Date: 10/07/24 Order Info: 0786-1 - CMP Order Info: 2857 - PSA Performed By: #### L 3100.5310, L500.4050, L501.9910, L3500.0000, L100.0100 #### [facility] [address] [place], [place], [address] Eosinophil percentageOrdered By: Pa Maynard on 10-13-2024 Eosinophils/100 WBC (Bld) 5.5 % High 0-5 [facility] Erythrocyte distribution wid th ratioOrdered By: Pa Maynard on 10-13-2024 Erythrocyte distribution width (RBC) [Ratio] 13.2 % 11.6-14.6 [facility] Erythrocyte distribution wid th standard deviationOrdered By: Pa Maynard on 10-13-2024 Erythrocyte distribution width (RBC) [Ratio] 41.4 fl 35.1-43.9 [facility] Estradiolon 10-13-2024 ESTRADIOL 28.6 pg/mL Normal [facility] Comment on above: Order Comment: Order Date: 10/07/24 Order Info: 0184-1 - CBCD Result Comment: MALE S ADULT MALE: 10-40 pg/mL ELLIS STAGES MEAN AGE REFERENCE RANGES Stage I(>14 days and prepubertal) 7.1 years Undetectable-13 pg/mL Stage II 12.1 years Undetectable-16 pg/mL Stage III 13.6 years Undetectable-26 pg/mL Stage IV 15.1 years Undetectable-38 pg/mL Stage V 18 years 10-40 pg/mL Puberty onset (transition from Ellis stage I to Ellis Stage II) occurs for boys at a median age of 11.5 (+/- 2) years. For boys, there is no proven relationship between puberty onset and body weight or ethnic origin. Progression through Ellis stages is variable. Ellis stage V (adult) should be reached by age 18. Performed By: #### L 3100.5310, L500.4050, L501.9910, L3500.0000, L100.0100 #### [facility] [address] [facility] [place], [place], [address] FSH and LHon 10-13-2024 FSH 2.2 mIU/mL Normal [facility] Comment on above: Order Comment: Order Date: 10/07/24 Order Info: 0184-1 - CBCD Result Comment: FEMA LE: Follicular: 1.4 - 18.1 mIU/mL Midcycle: 3.4 - 33.4 mIU/mL Luteal: 1.5 - 9.1 mIU/mL Post Menopause: 23.0 - 116.3 mIU/mL MALE: 1.4 - 18.1 mIU/mL Performed By: #### L 3100.5310, L500.4050, L501.9910, L3500.0000, L100.0100 #### [facility] [address] [place], [place], [address] LH 7.8 mIU/mL Normal [facility] Comment on above: Order Comment: Order Date: 10/07/24 Order Info: 0184-1 - CBCD Result Comment: FEMA LE: Follicular: 1.9-12.5 mIU/mL Midcycle: 8.7-76.3 mIU/mL Luteal: 0.5-16.9 mIU/mL Post Menopause: 15.9-54.0 mIU/mL MALE: 20-70 Years: 1.5-9.3 mIU/mL >70 Years: 3.1-34.6 mIU/mL Performed By: #### L 3100.5310, L500.4050, L501.9910, L3500.0000, L100.0100 #### [facility] [address] [place], [place], [address] Glomerular filtration rate ( GFR) estimation/1.73 sq m using serum, plasma, or whole bOrdered By: Pa Maynard on 10-13-2024 GFR/1.73 sq M.predicted among non-blacks MDRD (S/P/Bld) [Vol rate/Area] 93 mL/min/{1.73_m2} >60 [facility] Comment on above: mL/min/1.73m2 CKD-EP I Creatinine Equation (2020) Hematocrit Auto (Bld) [Volum e fraction]Ordered By: Pa Maynard on 10-13-2024 Hematocrit (Bld) [Volume fraction] 45.1 % 40-54 [facility] Hemoglobin A1con 10-13-2024 HbA1c (Bld) [Mass fraction] 5.5 % Normal <=5.6 [facility] Comment on above: Result Comment: Norm al < 5.7 % Prediabetic 5.7 - 6.4 % Diabetic >or= 6.5 % Please note range changes. Performed By: #### L 3300.1750, L501.9985, L3100.5400, L3300.1500, L3300.3500, L506.1001, L500.4100, L3410.9992, L501.2300, L3100.5060, L501.5200, L3100.5055 #### [facility] [address] [place], [place], [address] Hemoglobin A1c percentageOrd ered By: Pa Maynard on 10-13-2024 HbA1c (Bld) [Mass fraction] 5.5 % <5.7 [facility] Comment on above: Normal < 5.7 % Predi abetic 5.7 - 6.4 % Diabetic >or= 6.5 % Please note range changes. Hemoglobin measurementOrdere d By: Pa Maynard on 10-13-2024 Hemoglobin (Bld) [Mass/Vol] 14.5 g/dL 13.0-16.5 [facility] Immature granulocytes/100 WB C Auto (Bld)Ordered By: Pa Maynard on 10-13-2024 Immature granulocytes/100 WBC (Bld) 0.200 % 0.0-0.9 [facility] Comment on above: IG% - Immature Granu locytes (promyelocytes, myelocytes and metamyelocytes) > 1% indicates that a LEFT SHIFT is Present. LDL calc ser/plasOrdered By: Pa Maynard on 10-13-2024 Cholesterol in LDL [Mass/Vol] 114 mg/dL [facility] Comment on above: Abhtpzndfw=885-974 m g/dL & Higher Dmmj=072 mg/dL or greaterFriedwald Equation for LDL-C LH ser/plasOrdered By: Pa Maynard on 10-13-2024 Lutropin Qn 7.8 m[IU]/mL [facility] Comment on above: FEMALE:Follicular: 1 .9-12.5 mIU/mLMidcycle: 8.7-76.3 mIU/mLLuteal: 0.5-16.9 mIU/mLPost Menopause: 15.9-54.0 mIU/mLMALE:20-70 Years: 1.5-9.3 mIU/mL>70 Years: 3.1-34.6 mIU/mL Laboratory - Chemistry and C hemistry - challengeOrdered By: Pa Maynard on 10-13-2024 AST [Catalytic activity/Vol] 34 U/L <38 [facility] Lipid Profileon 10-13-2024 CHOL:HDL 3.99 Normal [facility] Comment on above: Order Comment: Order Date: 10/07/24 Order Info: 0786-1 - CMP Order Info: 2857-1 - PSA Performed By: #### L 3300.1750, L501.9985, L3100.5400, L3300.1500, L3300.3500, L506.1001, L500.4100, L3410.9992, L501.2300, L3100.5060, L501.5200, L3100.5055 #### [facility] [address] [place], [place], [address] Cholesterol [Mass/Vol] 181 mg/dL Normal <=200 [facility] Comment on above: Order Comment: Order Date: 10/07/24 Order Info: 0786-1 - CMP Order Info: [id number] - PSA Result Comment: Chol esterol level, Desirable <200 mg/dL Borderline high cholesterol 200-239 mg/dL High cholesterol >=240 mg/dL Recommendations of the NCEP Adult Treatment Panel for the following risk-cutoff thresholds for the [place] population. Performed By: #### L 3300.1750, L501.9985, L3100.5400, L3300.1500, L3300.3500, L506.1001, L500.4100, L3410.9992, L501.2300, L3100.5060, L501.5200, L3100.5055 #### [facility] [address] [facility] [address] [place], [address] Cholesterol in HDL [Mass/Vol] 45 mg/dL Normal [facility] Comment on above: Order Comment: Order Date: 10/07/24 Order Info: 0786-1 - CMP Order Info: 2857-1 - PSA Result Comment: [facility] Cholesterol Education Program (NCEP) guidelines: <40 mg/dL: Low HDL-cholesterol (major risk factor for CHD) >= 60 mg/dL: High HDL-cholesterol (negative risk factor for CHD) HDL-cholesterol is affected by a number of factors, e.g. smoking, exercise, hormones, sex and age. Performed By: #### L 3300.1750, L501.9985, L3100.5400, L3300.1500, L3300.3500, L506.1001, L500.4100, L3410.9992, L501.2300, L3100.5060, L501.5200, L3100.5055 #### [facility] [address] [place], [place], [id number] Cholesterol in LDL [Mass/Vol] 114 mg/dL Normal [facility] Comment on above: Order Comment: Order Date: 10/07/24 Order Info: 0786-1 - CMP Order Info: [id number] - PSA Result Comment: Bord opwinm=208-864 mg/dL Higher Fdzr=269 mg/dL or greater Friedwald Equation for LDL-C Performed By: #### L 3300.1750, L501.9985, L3100.5400, L3300.1500, L3300.3500, L506.1001, L500.4100, L3410.9992, L501.2300, L3100.5060, L501.5200, L3100.5055 #### [facility] [address] [facility] [place], [place], [id number] Cholesterol in VLDL [Mass/Vol] 22 mg/dL Normal 5-40 [facility] Comment on above: Order Comment: Order Date: 10/07/24 Order Info: 0786-1 - [facility] Order Info: [id number] - PSA Performed By: #### L 3300.1750, L501.9985, L3100.5400, L3300.1500, L3300.3500, L506.1001, L500.4100, L3410.9992, L501.2300, L3100.5060, L501.5200, L3100.5055 #### [facility] [address] [facility] [place], [place], [phone] Triglyceride [Mass/Vol] 109 mg/dL Normal [facility] Comment on above: Order Comment: Order Date: 10/07/24 Order Info: [id number] - [facility] Order Info: [id number] - PSA Result Comment: The drugs N-Acetylcysteine and Metamizole may falsely depress this assay. Normal range: <150 mg/dL Borderline High: 150-199 mg/dL High: 200-499 mg/dL Very High: >500 mg/dL Performed By: #### L 3300.1750, L501.9985, L3100.5400, L3300.1500, L3300.3500, L506.1001, L500.4100, L3410.9992, L501.2300, L3100.5060, L501.5200, L3100.5055 #### [facility] [address] [place], [place], [id number] MCV (mean corpuscular volume ) determinationOrdered By: Pa Maynard on 10-13-2024 MCV (RBC) [Entitic vol] 85.4 fL 80-94 [facility] Magnesiumon 10-13-2024 Magnesium [Mass/Vol] 2.1 mg/dL Normal 1.5-2.2 [facility] Comment on above: Order Comment: Order Date: 10/07/24 Order Info: 0786-1 - CMP Order Info: 2857-1 - PSA Performed By: #### L 3300.1750, L501.9985, L3100.5400, L3300.1500, L3300.3500, L506.1001, L500.4100, L3410.9992, L501.2300, L3100.5060, L501.5200, L3100.5055 #### [facility] [address] [place], [place], [id number] Magnesium measurement (mass/ volume)Ordered By: Pa Maynard on 10-13-2024 Magnesium (Unsp spec) [Mass/Vol] 2.1 mg/dL 1.5-2.2 [facility] Mean corpuscular hemoglobin (MCH) determinationOrdered By: Pa Maynard on 10-13-2024 MCH (RBC) [Entitic mass] 27.5 pg 27.0-32.0 [facility] Mean corpuscular hemoglobin concentration (MCHC) determinationOrdered By: Pa Maynard on 10-13-2024 MCHC (RBC) [Mass/Vol] 32.2 g/dL 32-36 [facility] Mean platelet volume determi nationOrdered By: Pa Maynard on 10-13-2024 Platelet mean volume (Bld) [Entitic vol] 13.3 fL High 6.2-12.0 [facility] Monocyte percentageOrdered B y: Pa Maynard on 10-13-2024 Monocytes/100 WBC (Bld) 8.2 % 0-10 [facility] NMR Lipoprofileon 10-13-2024 CHOL TOTAL Normal [facility] Comment on above: Order Comment: Order Date: 10/07/24 Order Info: [id number]- - NMRLIP Result Comment: SEND OUT Performed By: #### L 3100.5310, L500.4050, L501.9910, L3500.0000, L100.0100 #### [facility] [address] [place], [address] HDL-C Normal [facility] Comment on above: Order Comment: Order Date: 10/07/24 Order Info: 0842- - NMRLIP Result Comment: SEND OUT Performed By: #### L 3100.5310, L500.4050, L501.9910, L3500.0000, L100.0100 #### [facility] [address] [place], [address] HDL-P TOTAL Normal [facility] Comment on above: Order Comment: Order Date: 10/07/24 Order Info: 0842- - NMRLIP Result Comment: SEND OUT Performed By: #### L 3100.5310, L500.4050, L501.9910, L3500.0000, L100.0100 #### [facility] [address] [place], [address] INS. RES. SCORE Normal [facility] Comment on above: Order Comment: Order Date: 10/07/24 Order Info: 0842- - NMRLIP Result Comment: SEND OUT Performed By: #### L 3100.5310, L500.4050, L501.9910, L3500.0000, L100.0100 #### [facility] [address] [place], [address] LDL SIZE Normal [facility] Comment on above: Order Comment: Order Date: 10/07/24 Order Info: 0842-1 - NMRLIP Result Comment: SEND OUT Performed By: #### L 3100.5310, L500.4050, L501.9910, L3500.0000, L100.0100 #### [facility] [address] [place], [address] LDL-C (NIH CALC Normal [facility] Comment on above: Order Comment: Order Date: 10/07/24 Order Info: 0842-1 - NMRLIP Result Comment: SEND OUT Performed By: #### L 3100.5310, L500.4050, L501.9910, L3500.0000, L100.0100 #### [facility] [address] [place], [address] LDL-P Normal [facility] Comment on above: Order Comment: Order Date: 10/07/24 Order Info: 0842-1 - NMRLIP Result Comment: SEND OUT Performed By: #### L 3100.5310, L500.4050, L501.9910, L3500.0000, L100.0100 #### [facility] [address] [place], [address] SMALL LDL-P Normal [facility] Comment on above: Order Comment: Order Date: 10/07/24 Order Info: 0842-1 - NMRLIP Result Comment: SEND OUT Performed By: #### L 3100.5310, L500.4050, L501.9910, L3500.0000, L100.0100 #### [facility] [address] [place], [address] TRIGLYCERIDES Normal [facility] Comment on above: Order Comment: Order Date: 10/07/24 Order Info: 0842-1 - NMRLIP Result Comment: SEND OUT Performed By: #### L 3100.5310, L500.4050, L501.9910, L3500.0000, L100.0100 #### [facility] [address] [place], [address] Neutrophil percentageOrdered By: Pa Maynard on 10-13-2024 Neutrophils/100 WBC (Bld) 44.7 % Low 47-70 [facility] Nucleated red blood cell per centageOrdered By: Pa Maynard on 10-13-2024 Nucleated RBC/100 WBC (Bld) [Ratio] 0 % 0-5 [facility] PSA,Total - Annual Screenon 10-13-2024 PSA,TOT SCREEN 1.12 ng/mL Normal 0.02-4.00 [facility] Comment on above: Order Comment: Order Date: 10/07/24 Order Info: 0786-1 - CMP Order Info: 2857-1 - PSA Result Comment: This test was performed using the [employer] tPSA method. Measured values of a patient??sample can vary depending on the testing procedure used. PSA values determined on patient samples by different testing procedures cannot be used interchangeably. If there is a change in PSA assays while monitoring therapy, sequential testing should be performed to confirm baseline values. Performed By: #### L 3100.5310, L500.4050, L501.9910, L3500.0000, L100.0100 #### [facility] [address] [place], [place], [id number] Phosphoruson 10-13-2024 Phosphate [Mass/Vol] 2.8 mg/dL Normal 2.7-4.5 [facility] Comment on above: Order Comment: Order Date: 10/07/24 Order Info: 0786-1 - CMP Order Info: 2857-1 - PSA Performed By: #### L 3300.1750, L501.9985, L3100.5400, L3300.1500, L3300.3500, L506.1001, L500.4100, L3410.9992, L501.2300, L3100.5060, L501.5200, L3100.5055 #### [facility] [address] [place], [place], [id number] Platelet countOrdered By: Delfino Maynard on 10-13-2024 Platelets (Bld) [#/Vol] 127 10*3/uL Low 150-450 [facility] Potassium measurement (mass/ volume)Ordered By: Pa Maynard on 10-13-2024 Potassium (Unsp spec) [Mass/Vol] 4.1 mmol/L 3.3-5.1 [facility] RBC Auto (Bld) [#/Vol]Ordere d By: Pa Maynard on 10-13-2024 RBC (Bld) [#/Vol] 5.28 10*6/uL 4.6-6.2 [facility] Screening total cholesterol/ high density lipoprotein (HDL) cholesterol ratioOrdered By: Pa Maynard on 10-13-2024 Cholesterol.total/Torrie sterol in HDL [Mass ratio] 3.99 {ratio} [facility] Serum creatinine measurement (mass/volume)Ordered By: Pa Maynard on 10-13-2024 Creatinine [Mass/Vol] 0.99 mg/dL 0.70-1.20 [facility] Serum globulin measurementOr dered By: Pa Maynard on 10-13-2024 Globulin (S) [Mass/Vol] 2.7 g/dL 2.2-4.2 [facility] Serum glucose measurement (m ass/volume)Ordered By: Pa Maynard on 10-13-2024 Glucose [Mass/Vol] 92 mg/dL 70-99 [facility] Serum or plasma alanine valente otransferase (ALT) measurementOrdered By: Pa Maynard on 10-13-2024 ALT [Catalytic activity/Vol] 39 U/L <47 [facility] Serum or plasma albumin mendoza urement (mass/volume)Ordered By: Pa Maynard on 10-13-2024 Albumin [Mass/Vol] 4.1 g/dL 3.5-5.0 [facility] Serum or plasma albumin/glob ulin mass ratioOrdered By: Pa Maynard on 10-13-2024 Albumin/Globulin [Mass ratio] 1.5 {ratio} 0.9-2.4 [facility] Serum or plasma alkaline juan antonio sphatase measurementOrdered By: Pa Maynard on 10-13-2024 ALP [Catalytic activity/Vol] 57 U/L 40-129 [facility] Serum or plasma calcium mendoza urement (mass/volume)Ordered By: Pa Maynard on 10-13-2024 Calcium [Mass/Vol] 9.1 mg/dL 7.6-11.0 [facility] Serum or plasma cholesterol in HDL measurement (mass/volume)Ordered By: Pa Maynard on 10-13-2024 Cholesterol in HDL [Mass/Vol] 45 mg/dL >40 [facility] Comment on above: National Cholesterol Education Program (NCEP) guidelines:<40 mg/dL: Low HDL-cholesterol (major risk factor for CHD)>= 60 mg/dL: High HDL-cholesterol (negative risk factor for CHD)HDL-cholesterol is affected by a number of factors, e.g. smoking, exercise, hormones, sex and age. Serum or plasma cholesterol measurement (mass/volume)Ordered By: Pa Maynard on 10-13-2024 Cholesterol [Mass/Vol] 181 mg/dL <201 [facility] Comment on above: Cholesterol level, D esirable <200 mg/dLBorderline high cholesterol 200-239 mg/dLHigh cholesterol >=240 mg/dLRecommendations of the NCEP Adult Treatment Panel for the following risk-cutoff thresholds for the [place] population. Serum or plasma estradiol me asurement after follitropin dose (mass/volume)Ordered By: Pa Maynard on 10-13-2024 E2 post dose follitropin [Mass/Vol] 28.6 pg/mL [facility] Comment on above: MALES ADULT MALE: 10 -40 pg/mL ELLIS STAGES MEAN AGE REFERENCE RANGES Stage I(>14 days and prepubertal) 7.1 years Undetectable-13 pg/mL Stage II 12.1 years Undetectable-16 pg/mL Stage III 13.6 years Undetectable-26 pg/mL Stage IV 15.1 years Undetectable-38 pg/mL Stage V 18 years 10-40 pg/mL Puberty onset (transition from Ellis stage I to Ellis Stage II) occurs for boys at a median age of 11.5 (+/- 2) years. For boys, there is no proven relationship between puberty onset and body weight or ethnic origin. Progression through Ellis stages is variable. Ellis stage V (adult) should be reached by age 18. Serum or plasma urea nitroge n measurement (mass/volume)Ordered By: Pa Maynard on 10-13-2024 Urea nitrogen [Mass/Vol] 24 mg/dL High 4-19 [facility] Sodium levelOrdered By: Pa Maynard on 10-13-2024 Sodium [Moles/Vol] 141 mmol/L 133-145 [facility] Total proteinOrdered By: Nivia Maynard on 10-13-2024 Protein [Mass/Vol] 6.8 g/dL 5.9-8.4 [facility] Triglycerides measurementOrd ered By: Pa Maynard on 10-13-2024 Triglyceride [Mass/Vol] 109 mg/dL <199 [facility] Comment on above: The drugs N-Acetylcy steine and Metamizole may falsely depress this assay. Normal range: <150 mg/dLBorderline High: 150-199 mg/dLHigh: 200-499 mg/dLVery High: >500 mg/dL Vitamin D,25 Hydroxyon 10-13 Vitamin D 25-OH 37.0 ng/mL Normal 30-100 [facility] Comment on above: Order Comment: Order Date: 10/07/24 Order Info: 0786-1 - CMP Order Info: [id number] - PSA Result Comment: Elizabeth min D Status Deficiency: <20 ng/mL (50nmol/L) Insufficiency: 20-30 ng/mL (50-75 nmol/L) Sufficiency: 30-100 ng/mL (75-250 nmol/L) Toxicity: >100 ng/mL (>250 nmol/L) Performed By: #### L 3300.1750, L501.9985, L3100.5400, L3300.1500, L3300.3500, L506.1001, L500.4100, L3410.9992, L501.2300, L3100.5060, L501.5200, L3100.5055 #### [facility] [address] [place], [place], [id number] White blood cell (WBC) count Ordered By: Pa Maynard on 10-13-2024 WBC (Bld) [#/Vol] 4.4 10*3/uL 4.4-11.0 [facility] Basophil percentageOrdered B y: Pa Maynard on 03-17-2023 Basophil percentage 72 mg/dL 0-149 [facility] Bilirubin [Mass/Vol] 0.40 mg/dL 0.20-1.00 [facility] Comment on above: For patients on eltr ombopag therapy, use of Dimension Burns TBIL is not recommended. Chloride [Moles/Vol] 107 mmol/L 98-107 [facility] Glucose [Mass/Vol] 92 mg/dL 74-106 [facility] Potassium [Moles/Vol] 4.2 mmol/L 3.5-5.1 [facility] Protein [Mass/Vol] 7.1 g/dL 6.4-8.2 [facility] Sodium [Moles/Vol] 139 mmol/L 136-145 [facility] Laboratory - Chemistry and C hemistry - challengeOrdered By: Pa Maynard on 03-17-2023 Albumin/Globulin [Mass ratio] 0.9 {ratio} 0.9-2.4 [facility] ALP [Catalytic activity/Vol] 56 U/L 45-117 [facility] ALT [Catalytic activity/Vol] 42 U/L 16-61 [facility] CO2 [Moles/Vol] 28.0 mmol/L 21.0-32.0 [facility] Globulin (S) [Mass/Vol] 3.7 g/dL 2.2-4.2 [facility] Urea nitrogen/Creatinine [Mass ratio] 17.7 mg/mg 10-20 [facility] No Panel InformationOrdered By: Pa Maynard on 03-17-2023 Estimated GFR (MDRD) Amer 108 mL/min >60 [facility] Comment on above: GFR Calc Estimated GFR (MDRD) Non-Af Amer 89 mL/min >60 [facility] Comment on above: Non- GFR Calc Insulin Level 7.9 mU/L 2.6-37.6 [facility] LDL Cholesterol Particle Number [id number] nmol/L <1000 [facility] Comment on above: Low < 1000 Moderate 1000 - 1299 Borderline-High 1300 - 1599 High 1600 - 2000 Very High > 2000 LDL Cholesterol Particle Size 21.2 nm >20.5 [facility] Comment on above: INTERPRETATIVE INFORMATION PARTICLE CONCENTRATION AND SIZE <--Lower CVD Risk Higher CVD Risk--> LDL AND HDL PARTICLES Percentile in Reference Population HDL-P (total) High 75th 50th 25th Low >34.9 34.9 30.5 26.7 <26.7 Small LDL-P Low 25th 50th 75th High <117 117 527 839 >839 LDL Size <-Large (Pattern A)-> <-Small (Pattern B)-> 23.0 20.6 20.5 19.0 Smal l LDL-P and LDL Size are associated with CVD risk, butnot after LDL-P is taken into account. LDL Cholesterol, Calculated 101 mg/dL 0-99 [facility] Comment on above: Optimal < 100 Above optimal 100 - 129 Borderline 130 - 159 High 160 - 189 Very high > 189 Serum or plasma calcium mendoza urement (mass/volume)Ordered By: Pa Maynard on 03-17-2023 Calcium [Mass/Vol] 8.7 mg/dL 8.5-10.1 [facility] Serum or plasma cholesterol in HDL measurement (mass/volume)Ordered By: Pa Maynard on 03-17-2023 Cholesterol in HDL [Mass/Vol] 52 mg/dL >39 [facility] Serum or plasma cholesterol measurement (mass/volume)Ordered By: Pa Maynard on 03-17-2023 Cholesterol [Mass/Vol] 167 mg/dL 100-199 [facility] Serum or plasma creatinine m easurement (mass/volume)Ordered By: Pa Maynard on 03-17-2023 Creatinine [Mass/Vol] 0.96 mg/dL 0.70-1.30 [facility] Comment on above: The validity of the calculated GFR & GFRAA in patients over 70 years has not been determined. Clinical correlation is essential. Serum or plasma urea nitroge n measurement (mass/volume)Ordered By: Pa Maynard on 03-17-2023 Urea nitrogen [Mass/Vol] 17 mg/dL 7-18 [facility] Small low density lipoprotei n particle number measurementOrdered By: Pa Maynard on 03-17-2023 Lipoprotein.beta.subpar ticle.small [Moles/Vol] 548 nmol/L <=527 [facility] Thin prep Papanicolaou smear with manual screeningOrdered By: Pa Maynard on 03-17-2023 Thin prep Papanicolaou smear with manual screening 3.4 g/dL 3.2-5.0 [facility] Thin prep Papanicolaou smear with manual screening 38 U/L 15-37 [facility] Thin prep Papanicolaou smear with manual screening 4 5-15 [facility] Thin prep Papanicolaou smear with manual screening 31.1 umol/L >=30.5 [facility] Absolute lymphocyte countOrd ered By: Pa Maynard on 02-22-2023 Lymphocytes Auto (Unsp spec) [#/Vol] 2.32 10*3/uL 0.83-4.51 [facility] Basophil percentageOrdered B y: Pa Maynard on 02-22-2023 Basophils/100 WBC (Bld) 0.7 % 0-1 [facility] Bilirubin [Mass/Vol] 0.50 mg/dL 0.20-1.00 [facility] Comment on above: For patients on eltr ombopag therapy, use of Dimension Burns TBIL is not recommended. Chloride [Moles/Vol] 104 mmol/L 98-107 [facility] Cholesterol [Mass/Vol] 179 mg/dL <200 [facility] Comment on above: <200 mg/dL Desirable 200-240 mg/dL Borderline >240 mg/dL High Risk Eosinophils/100 WBC (Bld) 2.0 % 0-5 [facility] Glucose [Mass/Vol] 95 mg/dL 74-106 [facility] Neutrophils (Bld) [#/Vol] 6.3 10*3/uL 2.0-7.7 [facility] Neutrophils/100 WBC (Bld) 66.1 % 47-70 [facility] Potassium [Moles/Vol] 3.9 mmol/L 3.5-5.1 [facility] Protein [Mass/Vol] 7.7 g/dL 6.4-8.2 [facility] Sodium [Moles/Vol] 140 mmol/L 136-145 [facility] Testosterone [Mass/Vol] 226 ng/dL 264-916 [facility] Comment on above: Adult male reference interval is based on a population ofhealthy nonobese males (BMI <30) between 19 and 39 yearsold. ledy [place].al. JCEM 2017,102;0371-6735. PMID:[id number]. Triglyceride [Mass/Vol] 345 mg/dL <199 [facility] Comment on above: The drugs N-Acetylcy steine and Metamizole may falsely depress this assay.Serum Triglycerides Reference Interval Normal <150 mg/dL Borderline high 150 - 199 mg/dL High 200 - 499 mg/dL Very High > or = 500 mg/dL WBC (Bld) [#/Vol] 9.5 10*3/uL 4.4-11.0 [facility] Blood erythrocytes count (nu mber/volume)Ordered By: Pa Maynard on 02-22-2023 RBC (Bld) [#/Vol] 5.66 10*6/uL 4.6-6.2 [facility] Blood hemoglobin measurement (mass/volume)Ordered By: Pa Maynard on 02-22-2023 Hemoglobin (Bld) [Mass/Vol] 15.2 g/dL 13.0-16.5 [facility] Blood lymphocytes/100 leukoc ytesOrdered By: Pa Maynard on 02-22-2023 Lymphocytes/100 WBC (Bld) 24.3 % 19-41 [facility] Blood monocytes/100 leukocyt esOrdered By: Pa Maynard on 02-22-2023 Monocytes/100 WBC (Bld) 6.6 % 0-10 [facility] Blood platelet mean volumeOr dered By: Pa Maynard on 02-22-2023 Platelet mean volume (Bld) [Entitic vol] 13.1 fL 6.2-12.0 [facility] Determination of erythrocyte mean corpuscular volume (MCV)Ordered By: Pa Maynard on 02-22-2023 MCV (RBC) [Entitic vol] 84.6 fL 80-94 [facility] Free testosterone percentage Ordered By: Pa Maynard on 02-22-2023 Testosterone Free/Testosterone.total [Mass fraction] 3.55 % 1.50-4.20 [facility] Hematocrit Auto (Bld) [Volum e fraction]Ordered By: Pa Maynard on 02-22-2023 Hematocrit (Bld) [Volume fraction] 47.9 % 40-54 [facility] - Chemistry and C hemistry - challengeOrdered By: Pa Maynard on 02-22-2023 ALP [Catalytic activity/Vol] 64 U/L 45-117 [facility] ALT [Catalytic activity/Vol] 47 U/L 16-61 [facility] CO2 [Moles/Vol] 30.0 mmol/L 21.0-32.0 [facility] Cobalamin (Vitamin B12) [Mass/Vol] 567 pg/mL 211-911 [facility] Free T4 [Mass/Vol] 0.90 ng/dL 0.76-1.46 [facility] Globulin (S) [Mass/Vol] 3.8 g/dL 2.2-4.2 [facility] Lipoprotein a [Moles/Vol] 107.6 nmol/L <75.0 [facility] Comment on above: Note: Values greater than or equal to 75.0 nmol/L may indicate an independent risk factor for CHD, but must be evaluated with caution when applied to non- populations due to the influence of genetic factors on Lp(a) across ethnicities.Performed at: - [facility] [address] [id number] Director: Brennen Newberry PhD, Phone: [phone] at: - [facility] [address] [id number] Director: Beba Siegel MD, Phone: [phone] Urea nitrogen/Creatinine [Mass ratio] 22.7 mg/mg 10-20 [facility] - Hematology and Cell countsOrdered By: Pa Maynard on 02-22-2023 Erythrocyte distribution width (RBC) [Entitic vol] 42.0 fL 35.1-43.9 [facility] Erythrocyte distribution width (RBC) [Ratio] 13.5 % 11.6-14.6 [facility] Immature granulocytes/100 WBC (Bld) 0.300 % 0.0-0.9 [facility] Comment on above: IG% - Immature Granu locytes (promyelocytes, myelocytes and metamyelocytes) > 1% indicates that a LEFT SHIFT is Present. MCH (RBC) [Entitic mass] 26.9 pg 27.0-32.0 [facility] Nucleated RBC/100 WBC (Bld) [Ratio] 0 % 0-5 [facility] MCHC Auto (RBC) [Mass/Vol]Or dered By: Pa Maynard on 02-22-2023 MCHC (RBC) [Mass/Vol] 31.7 g/dL 32-36 [facility] No Panel InformationOrdered By: Pa Maynard on 02-22-2023 C-Reactive Protein High Sensitivity 0.53 mg/L <3.00 [facility] Comment on above: Low Relative Risk of CVD <1.0 mg/L Average Relative Risk of CVD 1.0 - 3.0 mg/L High Relative Risk of CVD >3.0 mg/L Estimated GFR (MDRD) Amer 107 mL/min >60 [facility] Comment on above: GFR Calc Estimated GFR (MDRD) Non-Af Amer 88 mL/min >60 [facility] Comment on above: Non- GFR Calc Free Triiodothyronine (T3) pg/dL 2.9 pg/mL 2.18-3.98 [facility] Homocysteine 6.8 umol/L 3.2-10.7 [facility] Insulin Level 38.6 mU/L 2.6-37.6 [facility] Miscellaneous Test See comment [facility] Comment on above: TEST RESULTS LIMITSA polipoprotein BApolipoprotein B 89 mg/dL <90 Desirable < 90 Borderline High 90 - 99 High 100 - 130 Very High >130 ASCVD RISK THERAPEUTIC TARGET CATEGORY APO B (mg/dL) Very High Risk <80 (if extreme risk <70) High Risk <90 Moderate Risk <90 TESTING PERFORMED AT [facility]. ORIGINAL REPORT ON FILE IN LAB CONTAINS ADDITIONAL TEST SITE INFORMATION. Prostate Specific Antigen Screen 2.18 ng/mL 0.00-4.00 [facility] Comment on above: This test was perfor med using the TPSA assay method for the[employer] chemistry system. Values obtained with differentassay methods cannot be used interchangably.When changing PSA assays in the course of monitoring apatient, additional sequential testing should be carriedout to confirm baseline values. Thyroid Stimulating Hormone (TSH) 1.36 uIU/mL 0.358-3.74 [facility] Vitamin D 25-Hydroxy 50.2 ng/mL [facility] Comment on above: Vitamin D 25(OH) Sta tus Range Deficiency <20 ng/mL (50nmol/L) Insufficiency 20 - 30 ng/mL (50 - 75 nmol/L) Sufficiency 30 - 100 ng/mL (75 - 250 nmol/L) Toxicity >100 ng/mL (>250 nmol/L) Platelets bldOrdered By: Nivia Maynard on 02-22-2023 Platelets (Bld) [#/Vol] 171 10*3/uL 150-450 [facility] Serum or plasma albumin mendoza urement (mass/volume)Ordered By: Pa Maynard on 02-22-2023 Albumin [Mass/Vol] 3.9 g/dL 3.2-5.0 [facility] Serum or plasma albumin/glob ulin mass ratioOrdered By: Pa Maynard on 02-22-2023 Albumin/Globulin [Mass ratio] 1.0 {ratio} 0.9-2.4 [facility] Serum or plasma calcium mendoza urement (mass/volume)Ordered By: Pa Maynard on 02-22-2023 Calcium [Mass/Vol] 8.8 mg/dL 8.5-10.1 [facility] Serum or plasma cholesterol in HDL measurement (mass/volume)Ordered By: Pa Maynard on 02-22-2023 Cholesterol in HDL [Mass/Vol] 50 mg/dL >40 [facility] Comment on above: The drugs N-Acetylcy steine and Metamizole may falsely depress this assay. Reference Range HDL <40 mg/dL Low HDL Cholesterol HDL >or= 60 mg/dL High HDL Cholesterol Serum or plasma cholesterol in VLDL measurement (mass/volume)Ordered By: Pa Maynard on 02-22-2023 Cholesterol in VLDL [Mass/Vol] 69 mg/dL 5-40 [facility] Serum or plasma cortisol connor surement (mass/volume)Ordered By: Pa Maynard on 02-22-2023 Cortisol [Mass/Vol] 10.40 ug/dL 3.44-22.45 [facility] Comment on above: Adult (AM) 5.27 - 22 .45 ug/dL Adult (PM) 3.44 - 16.76 ug/dLPlease note revised CORTISOL reference range effective 2019. Serum or plasma creatinine m easurement (mass/volume)Ordered By: Pa Maynard on 02-22-2023 Creatinine [Mass/Vol] 0.97 mg/dL 0.70-1.30 [facility] Comment on above: The validity of the calculated GFR & GFRAA in patients over 70 years has not been determined. Clinical correlation is essential. Serum or plasma estradiol (E 2) measurement (mass/volume)Ordered By: Pa Maynard on 02-22-2023 E2 [Mass/Vol] 43.0 pg/mL [facility] Comment on above: NORMAL REFERENCE RAN GES FEMALE FOLLICULAR 21.4 - 164.8 pg/mL MID-CYCLE PEAK 49.9 - 367.2 pg/mL LUTEAL 40.2 - 259.0 pg/mL POST-MENOPAUSAL ON MHT <11.0 - 462.1 pg/mL NOT ON MHT <11.0 - 58.3 pg/mL MALE <11.0 - 52.5 pg/mL NOTE:[employer] HAS CONFIRMED THE DRUG FULVETRANT (FASLODEX) MAY CAUSE FALSELY ELEVATED ESTRADIOL RESULTS WHEN USING THIS TEST METHOD. IF PATIENT IS TAKING FULVESTRANT AN ALTERNATIVE METHOD SHOULD BE USED TO DETERMINE ESTRADIOL CONCENTRATION. Serum or plasma ferritin connor surement (mass/volume)Ordered By: Pa Maynard on 02-22-2023 Ferritin [Mass/Vol] 43 ng/mL 26-388 [facility] Serum or plasma folate measu rement (mass/volume)Ordered By: Pa Maynard on 02-22-2023 Folate [Mass/Vol] 27.20 ng/mL 3.1-55.4 [facility] Serum or plasma low density lipoprotein (LDL) cholesterol measurement (mass/volume)Ordered By: Pa Maynard on 02-22-2023 Cholesterol in LDL [Mass/Vol] 60 mg/dL 0-130 [facility] Serum or plasma testosterone free measurement (mass/volume)Ordered By: Pa Maynard on 02-22-2023 Testosterone Free [Mass/Vol] 8.02 ng/dL 5.00-21.00 [facility] Serum or plasma urea nitroge n measurement (mass/volume)Ordered By: Pa Maynard on 02-22-2023 Urea nitrogen [Mass/Vol] 22 mg/dL 7-18 [facility] Serum or plasma uric acid me asurement (mass/volume)Ordered By: Pa Maynard on 02-22-2023 Urate [Mass/Vol] 6.1 mg/dL 3.5-7.2 [facility] Comment on above: The drugs N-Acetylcy steine and Metamizole may falsely depress this assay. Thin prep Papanicolaou smear with manual screeningOrdered By: Pa Maynard on 02-22-2023 Thin prep Papanicolaou smear with manual screening 40 U/L 15-37 [facility] Thin prep Papanicolaou smear with manual screening 6 5-15 [facility] Whole blood hemoglobin A1c/t otal hemoglobin ratio (mass fraction)Ordered By: Pa Maynard on 02-22-2023 HbA1c (Bld) [Mass fraction] 5.5 % 3.8-5.6 [facility] Comment on above: Normal < 5.7 % Predi abetic 5.7 - 6.4 % Diabetic >or= 6.5 % Please note range changes. Encounters Encounter Date Encounter Type Care Provider Facility Start: 10-29-2024 ambulatory Pa Maynard Facility:[facility] Start: 10-13-2024 End: 10-13-[address] Pa Maynard MD Work Phone: -Laboratory Start: 10-13-2024 End: 10-13-[address] Pa Maynard MD -Laboratory Work Phone: Start: 10-13-2024 End: 10-13-2024 ambulatory Pa Maynard Facility:[facility] Start: 03-17-2023 End: 01-20-2024 ambulatory [facility] Work Phone: Start: 03-17-2023 End: 03-17-2023 Patient encounter procedure [facility]-Laboratory Work Phone: Start: 02-22-2023 End: 02-22-2023 ambulatory [facility] Work Phone: Start: 02-22-2023 End: 02-22-2023 Patient encounter procedure [facility]-Laboratory Work Phone: Procedures Date Procedure Procedure Detail Performing Clinician Start: 10-13-[address] Pa melendez MD Work Phone: Comment on above: Test Ordered: [id number] Apolipoprotein BApolipoprotein B 103 [H ] mg/dL Reference Range: <90 Desirable < 90 Borderline High 90 - 99 High 100 - 130 Very High >130 ASCVD RISK THERAPEUTIC TARGET CATEGORY APO B (mg/dL) Very High Risk <80 (if extreme risk <70) High Risk <90 Moderate Risk <90Performed at: [email or web address] [id number] Director: Beba Siegel MD, Phone: [phone] at: [facility] [id number] Director: Brennen Newberry PhD, Phone: [phone] Start: 10-13-20[address] Fol[address] stimulating hormone measurement Dr. Pa Maynard MD Work Phone: Comment on above: FEMALE:Follicular: 1 .4 - 18.1 mIU/mLMidcycle: 3.4 - 33.4 mIU/mLLuteal: 1.5 - 9.1 mIU/mLPost Menopause: 23.0 - 116.3 mIU/mLMALE: 1.4 - 18.1 mIU/mL Start: 10-13-2024 Prostate specific an tigen measurement Dr. Pa Maynard MD Work Phone: Comment on above: This test was perfor med using the [employer] tPSA method. Measured values of a patient sample can vary depending on the testing procedure used. PSA values determined on patient samples by different testing procedures cannot be used interchangeably. If there is a change in PSA assays while monitoring therapy, sequential testing should be performed to confirm baseline values. Start: 10-13-2024 Serum inorganic phos phate measurement Dr. Pa Maynard MD Work Phone: Start: 10-13-2024 Vitamin D, 25-hydrox y measurement Dr. Pa Maynard MD Work Phone: Comment on above: Vitamin D StatusDefi ciency: <20 ng/mL (50nmol/L)Insufficiency: 20-30 ng/mL (50-75 nmol/L)Sufficiency: 30-100 ng/mL (75-250 nmol/L)Toxicity: >100 ng/mL (>250 nmol/L) Plan of Treatment Date Care Activity Detail Author Start: 10-13-2024 Prolactin measurement [facility] Start: 03-17-2023 Procedure [facility] Start: 02-22-2023 Procedure [facility] Start: 02-22-2023 [facility] Dehydroepiandrostero ne sulfate (DHEA-S) [Mass/volume] in Serum or Plasma [facility] Insulin [Mass/volume ] in Serum or Plasma [facility] Serum testosterone measurement [facility] Sex hormone binding globulin [Moles/volume] in Serum or Plasma [facility] Sex hormone binding globulin [Moles/volume] in Serum or Plasma [facility] Testosterone [Mass/v olume] in Serum or Plasma [facility] Testosterone Free [M ass/volume] in Serum or Plasma [facility] Testosterone Free [M ass/volume] in Serum or Plasma [facility] Testosterone Free [M ass/volume] in Serum or Plasma [facility] Testosterone measurement [facility] Testosterone measurement [facility] Testosterone measurement [facility] Immunizations Immunization Date Immunization Notes Care Provider Yissel bustamante 08-23-2016 tetanus toxoid, redu shelly diphtheria toxoid, and acellular pertussis vaccine, adsorbed [facility] Payers Date Payer Category Payer Self-pay [id number] 2024 Unknown [id number] Private Health Insurance [id number] Unknown [id number] Unknown [id number] Social History Date Type Detail Facility Start: 12-12-2017 Tobacco smoking stat [facility] Unknown if ever smoked [facility] Start: 1975 Sex Assigned At Male [facility] Start: 12-12-2017 [facility] Functional Status Date Assessment Result Facility 03-17-2023 Lipoprotein insulin resistance score Insulin Resistance/Diabete s Risk 42 [facility] Comment on above: INSULIN RESISTANCE M INDER <--Insulin Sensitive Insulin Resistant--> Percentile in Reference PopulationInsulin Resistance ScoreLP-IR Score Low 25th 50th 75th High <27 27 45 63 >63LP-IR Score is inaccurate if patient is non-fasting.The LP-IR score is a laboratory developed index that hasbeen associated with insulin resistance and diabetes riskand should be used as one component of a physician'sclinical assessment.Performed at: [facility] [address] [id number] Director: Beba Siegel MD, Phone: [phone] Evaluation note Note Date & Type Note Facility Evaluation note No assessment information availa ble [facility] Work Phone: Reason for referral (narrative) Note Date & Type Note Facility Reason for referral (narrative) No reason for referral information available [facility] Work Phone: Family History No Family History Records Found Relationship Condition Age at Onset Recorded Date/T tami mother Cardiac disease Unknown Coronary artery disease Unknown Hypertension Unknown father Hypertension Unknown Advance Directives No Advanced Directives Records Found Advance Directive Response Recorded Date/ Time Living Will No August 23, 2016 8:06pm Power of Power Shovel Engineer No August 23 8:06pm Summary Purpose Additional Source Comments Care Teams (unrecognized sec tion and content) Team Status: Active Member Role Status Dates Dr. Pa Maynard MD Family Provider Active Dr. Pa Maynard MD Primary Care Provider Active Team Status: Inactive Member Role Status Dates Dr. Pa Maynard MD Primary Care Provide r, Attending Provider, Referring Provider Active Team Status: Active Member Role/Relationship Status Dates Dr. Pa Maynard MD Family Provider Active Dr. Pa Maynard MD Primary Care Provider Active Team Status: Inactive Member Role/Relationship Status Dates Dr. Pa Maynard MD Primary Care Provider Active Start: October 13, 2024 End: October 13, 2024 Dr. Pa Maynard MD Attending Provider Active St art: October 13, 2024 End: October 13, 2024 Goals (unrecognized section and content) Goals may be documented in a n alternate sectionGoals may be documented in an alternate sectionGoals may be documented in an alternate section (unrecognized sect ion and content) No Status Records Found INFORMATION SOURCE (unrecogn ized section and content) DATE CREATED AUTHOR 10/23/2024 [facility] FOR RECORDS PERTAINING TO PATIENTS WHO ARE OR HAVE BEEN ENROLLED IN A CHEMICAL DEPENDENCY/SUBSTANCEABUSE PROGRAM, SOME INFORMATION MAY BE OMITTED. This clinical summary was aggregated from multiple sources. Caution should be exercised in using it in the provision of clinical care. This summary normalizes information from multiple sources, and as a consequence, information in this document may materially change the coding, format and clinical context of patient data. In addition, data may be omitted in some cases. CLINICAL DECISIONS SHOULD BE BASED ON THE PRIMARY CLINICAL RECORDS. [employer] [facility]. provides no warranty or guarantee of the accuracy or completeness of information in this document.
--- NOTE | 2024-10-29 07:22 | US_ITS ---
PROCEDURE: ABD LIMITED W/ ELASTOGRAPHY REASON FOR EXAM: HX OF FATTY LIVER COMPARISON: Prior study dated May 15, 2013. TECHNIQUE: Procedure Code: USABDLELPARO Modality: US Procedure: ABD LIMITED W/ ELASTOGRAPHY Right upper quadrant abdominal ultrasound. Laura ElastQ [facility] shear wave elastography for non-invasive assessment of liver tissue stiffness. Laura EPIQ Elite. FINDINGS: LIVER: Size: Unremarkable Length: 17.4 cm Echotexture: Diffusely echogenic suggesting fatty infiltration Contour: Normal Lesions: None identified Elastography: EQI Med: 7.07 kPa EQI Med [facility]: 1.52 m/s IQR/Med: 17.3 %* GALLBLADDER: Normal COMMON BILE DUCT: Normal measuring 4 mm. . PANCREAS: Normal Visualized portions of the right kidney are unremarkable. No right upper quadrant ascites. US/ABD Limited w/ Elastography IMPRESSION: [id number] hepatic fibrosis. Diffuse fatty infiltration of the liver. Reference Values: SRU <1.37 m/s (5.7kPa): No to mild fibrosis 1.37 m/s - 2.2 m/s: Moderate to severe fibrosis >2.2 m/s (15kPa): Significant fibrosis / cirrhosis METAVIR Score F2 or higher: 1.34 m/s (5.7kPa) F3 or higher: 1.55 m/s (7.3kPa) F4: 1.80 m/s (10kPa) * If the IQR/Med is >30%, the variance in the measurements is a large and the a ccuracy of the measurement may be in question. Reading Location: [place] [id number]
== END | disposition home or self-care (01) ==
PROVIDERS: PCP Family Medicine; Referring Provider Family Medicine; Visit Provider Family Medicine
DX: K76.0 Fatty (change of) liver, not elsewhere classified (principal)
CPT/HCPCS: 36415; 76705; 76981

== ENCOUNTER → 2024-11-27 | Outpatient (CLI) | payer SELFPAY | END | disposition home or self-care (01) | PROVIDERS: PCP Family Medicine; Referring Provider Family Medicine; Visit Provider Family Medicine | DX: K76.0 Fatty (change of) liver, not elsewhere classified (principal) | CPT/HCPCS: 76499 ==

== ENCOUNTER → 2024-11-27 | Outpatient (CLI) | payer OTHER, SELFPAY ==
--- NOTE | 2024-11-27 08:17 | BD_ITS ---
PROCEDURE: DEXA BONE DENSITY STUDY 11/27/2024 REASON FOR EXAM: M, age 49 y/o . Postmenopausal screening TECHNIQUE: Procedure Code: BDDBD Modality: DX Procedure: DEXA BONE DENSITY STUDY COMPARISON: None FINDINGS: BMD and T-SCORES Lumbar spine: 0.922 g/cm2, T-score -1.5 Levels: L1 through L4 Change from prior: . Left femoral neck: 0.697 g/cm2, T-score -1.7 Femoral neck comparison data not recommended for monitoring change. Prior T-score Left total hip: 0.957 g/cm2, T-score -0.5 Change from prior: . Right femoral neck: 0.763 g/cm2, T-score -1.2 Femoral neck comparison data not recommended for monitoring change. Prior T-score Right total hip: 0.986 g/cm2, T-score -0.3 Change from prior: . The World Health Organization has defined the following categories based on bone density: Normal bone density: T-score equal to or greater than -1.0 Osteopenia: T-score between -1.0 and -2.5 Osteoporosis: T-score equal to or less than -2.5 FRAX (or Comparable) Fracture Risk Assessment: 10 Year Probability of Fracture: Major Osteoporotic Fracture: 3.4% Hip Fracture: 0.2% (Note: FRAX is not to be reported in setting of normal range bone density, osteoporosis on DEXA, known history of osteoporosis, prior osteoporotic hip or vertebral fracture, or for any patient undergoing pharmacological treatment for bone loss.) The National Osteoporosis Foundation (NOF) recommends pharmacological treatment for patients with a FRAX 10-year risk of 3% or higher for a hip fracture, or 20% or higher for a major osteoporotic fracture, to prevent osteoporosis and reduce fracture risk. The patient does not meet the pharmacological treatment recommendations for prevention of osteoporosis. BD/Dexa Bone Density Study IMPRESSION: OSTEOPENIA. Recommend follow-up as clinically warranted. Reading Location: [id number]
== END | disposition home or self-care (01) ==
LOC: OPBD 08:10
PROVIDERS: PCP Family Medicine; Referring Provider Family Medicine; Visit Provider Family Medicine
DX: K76.0 Fatty (change of) liver, not elsewhere classified (principal)
CPT/HCPCS: 77080

== ENCOUNTER 2024-12-08 06:45 | Day surgery (SDC) | payer OTHER, SELFPAY ==
--- NOTE | 2024-12-08 06:47 | PCM.PRE.AN2 ---
ASA Classification* ASA Classification ASA Classification: 2 Assessment & Plan Anesthesia* Anesthesia Assessment Anesthesia Assessment: Discussed sedation and/or anesthesia options, risks, benefits, and alternatives with patient/parents/legal guardian/POA. Questions invited. The patient/parents/legal guardian/POA seems to understand and agrees to proceed with anesthesia plan. Reviewed the physical assessment, medical history, allergy history and patient home medications list prior to surgery/procedure/anesthetic and documented any changes. Performed airway and anesthesia risk assessments. Anesthesia Type Anesthesia Type: MAC Anesthesia Focused Assessment* Airway Assessment Mouth opens: >3 cm Mallampati Score: II Labs Anesthesia Preop lab: CBC WBC, (4.4-11.0) 4.4 K/mm3 10/13/24, 08:14 RBC, (4.6-6.2) 5.28 M/mm3 10/13/24, 08:14 Hgb, (13.0-16.5) 14.5 g/dL 10/13/24, 08:14 Hct, (40-54) 45.1 % 10/13/24, 08:14 Plt Count, (150-450) 127 K/mm3 L 10/13/24, 08:14 CHEMISTRY Potassium, (3.3-5.1) 4.1 mmol/L 10/13/24, 08:14 Sodium, (133-145) 141 mmol/L 10/13/24, 08:14 Magnesium, (1.5-2.2) 2.1 mg/dL 10/13/24, 08:14 Phosphorus, (2.7-4.5) 2.8 mg/dL 10/13/24, 08:14 BUN, (4-19) 24 mg/dL H 10/13/24, 08:14 Creatinine, (0.70-1.20) 0.99 mg/dL 10/13/24, 08:14 Glucose, (70-99) 92 mg/dL 10/13/24, 08:14 TSH, (0.358-3.74) 1.36 uIU/mL 02/22/23, 15:07 COAG PT, (11.7-14.9) 13.8 SECONDS 10/28/13, 12:12 Pre-Assessment Diagnosis/Proposed Procedure Planned Operative Procedure(s): COLONOSCOPY Anesthesia History 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 When Was Last Pacemaker Check QUESTION #4 FULL TEXT: You/Your Family Experience fever (hyperthermia) with Anesthesia Last Oral Intake Last Oral intake: Last Oral Intake NPO since Meds taken in AM with sips of water? Meds patient instructed to take am of surgery PONV PONV - logistics research engineer: PONV - logistics research engineer Female No 12/01/24 12:41 HX of Motion Sickness No 12/01/24 12:41 HX of N/V After Surgery No 12/01/24 12:41 Non-Smoker Yes 12/01/24 12:41 Duration of Surgery greater No 12/01/24 12:41 than 60 minutes Number of Risk Factors 1 12/01/24 12:41 PONV Score Low Risk 12/01/24 12:41 Respiratory Assessment Respiratory Assessment - logistics research engineer: Respiratory Tract Infection Hx - logistics research engineer Hx Respiratory Tract Infection No 12/01/24 12:41 STOP Sleep Apnea STOP Sleep Apnea - logistics research engineer: STOP Sleep Apnea - logistics research engineer Hx Hypertension No 12/01/24 12:41 Hx Sleep Apnea No 12/01/24 12:41 CPAP BIPAP Do you snore loudly (louder No 12/01/24 12:41 than talking or can be heard Do you often feel tired/ No 12/01/24 12:41 fatigued/ sleepy during daytime? Has anyone observed you stop No 12/01/24 12:41 breathing during sleep? STOP Results Negative 12/01/24 12:41 QUESTION #5 FULL TEXT : Do you snore loudly (louder than talking or can be heard through closed doors)? 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 Specify any problems Hx of Preganancy in last 3 N/A 12/01/24 12:41 Months Nurse Filling Out Transfusion VCHRISTIN 12/01/24 12:41 & Questions: Date: 12/01/24 12/01/24 12:41 Time: 12:43 12/01/24 12:41 Patient unable to answer at this time (ie. confused, unrespo /Reproduction History /Reproductive History - logistics research engineer: /Reproductive Hx- logistics research engineer Hx Now Gestational Age (in weeks): EDC: Hx Hx Para Hx Section SAB PFSH Medical History Non-smoker Cardiology follow-up encounter History of echocardiogram History of stress test Non-rheumatic tricuspid valve insufficiency Obesity Abnormal celiac antibody panel Fatty liver disease, nonalcoholic Home Medications ?Medication ?Instructions ?Recorded ?Last Taken ?Type cholecalciferol (vitamin D3) 25 25 mcg PO DAILY 12/01/24 Unknown History mcg (1,000 unit) capsule (Vitamin D3) magnesium 250 mg tablet 250 mg PO DAILY 12/01/24 Unknown History multivitamin (Daily Multi-Vitamin 1 tab PO DAILY 12/01/24 Unknown History tablet) omega 2-emp-zhl-fish oil 1,200 mg 1 cap PO DAILY 12/01/24 Unknown History (144 mg-216 mg) capsule (Fish Oil) Allergy/AdvReac Type Severity Reaction Status Date / Time No Known Allergies Allergy Verified 12/01/24 12:30 Family History Mother Heart disease Fibrosis Cardiomyopathy? Rheumatic Fever/ CABG CAD (coronary artery disease) Hypertension Father Hypertension Surgical History History of tonsillectomy Social History Smoking Status: Former smoker Review of Systems (Anesthesia) ROS Narrative System reviewed and no additional complaints, except as documented.
[2024-12-08 07:05] VITALS: BP 116/84; PULSE 73; RESP 16; TEMP 36.6; O2SAT 100; BMI 26.9
[2024-12-08] MEDS: Lactated Ringers 1,000 ML 15 ML IV (07:35)
--- NOTE | 2024-12-08 07:45 | COLBX_PTH ---
PATIENT: FELIZ KRUEGER LOC: EN U#:[id number] AGE/SX: 49/M ROOM: RE12/08/[address]: Dr. Chaitanya Rain DO : 1975 BED: DIS: 12/08/2024 SPEC #: [id number] RECD: 12/08/24 10:11 STATUS: PRISCILA REQ #: [id number] ASHISH: 12/08/24 07:[address]: Chaitanya Rain DEPT: SURGICAL PATHOLOGY RECD BY: Kody Hall ENTERED: 12/08/24 11:23 SP TYPE: COLON BX OTHR DR: Dr. Pa Maynard MD Tissues: A - Sigmoid colon biopsy Procedures: Surgery Specimen Level IV HEADER OPERATION: Colonoscopy, polypectomy PRE-OP DIAGNOSIS: Encounter for screening colonoscopy TISSUE SUBMITTED: A- Sigmoid polyp MICROSCOPIC DIAGNOSIS A. Sigmoid colon, polyp, biopsy: * Hyperplastic polyp. MICROSCOPIC DESCRIPTION Slides are reviewed. GROSS DESCRIPTION A. Received in fixative is one container labeled with the patient's name and designated Sigmoid polyp. The specimen consists of a 0.9 x 0.7 x 0.4 cm porras and granular polypoid tissue fragment. The resection margin is inked green and it is bisected. Entirely submitted in 1 cassette. ME 12/08/2024 CPT:[id number]
--- NOTE | 2024-12-08 07:50 | PCM.HP.STD ---
[facility] - General General Date of Admission: 12/08/24 Date of Service: 12/08/24 Chief Complaint: Screening colonoscopy HPI Narrative FELIZ KRUEGER, is a 49 M who presents [ ] today for screening colonoscopy. He has never a colonoscopy in the past. He is very healthy and does not take any medicines on a daily basis. [facility] Medical History Non-smoker Cardiology follow-up encounter History of echocardiogram History of stress test Non-rheumatic tricuspid valve insufficiency Obesity Abnormal celiac antibody panel Fatty liver disease, nonalcoholic Home Medications ?Medication ?Instructions ?Recorded ?Last Taken ?Type cholecalciferol (vitamin D3) 25 25 mcg PO DAILY 12/01/24 Unknown History mcg (1,000 unit) capsule (Vitamin D3) magnesium 250 mg tablet 250 mg PO DAILY 12/01/24 Unknown History multivitamin (Daily Multi-Vitamin 1 tab PO DAILY 12/01/24 Unknown History tablet) omega 8-xpg-aqr-fish oil 1,200 mg 1 cap PO DAILY 12/01/24 Unknown History (144 mg-216 mg) capsule (Fish Oil) Allergy/AdvReac Type Severity Reaction Status Date / Time No Known Allergies Allergy Verified 12/08/24 07:04 Family History Mother Heart disease Fibrosis Cardiomyopathy? Rheumatic Fever/ CABG CAD (coronary artery disease) Hypertension Father Hypertension Surgical History History of tonsillectomy Social History Smoking Status: Former smoker ROS Constitutional Constitutional: Denies fatigue, fever(s), poor appetite, weight gain or weight loss Gastrointestinal Gastrointestinal: Denies belching, bloating, change in bowel habits, change in stool character, chewing difficulty, coffee ground emesis, constipation, cramping, diarrhea, dyspepsia, dysphagia, early satiety, excessive flatus, fecal incontinence, heartburn, hematemesis, hematochezia, hemorrhoids, loose stools, melena, nausea, odynophagia, rectal bleeding, tenesmus, vomiting or weight changes Vital Signs Vital Signs Vital Signs: 12/08/24 07:05 12/08/24 07:05 Temperature 97.8 F Temperature Source Temporal Pulse Rate 73 Respiratory Rate 16 Respiratory Pattern Normal Blood Pressure 116/84 H Blood Pressure Mean 94 Blood Pressure Source Monitor Blood Pressure Position Sitting Blood Pressure Location Left Arm Pulse Ox 100 Oxygen Delivery Method Room Air Weight Weight: 209 lb 7.026 oz Body Mass Index (BMI) 26.9 Physical Exam Const alert, oriented x3, no apparent distress and healthy appearing General Appearance: cooperative GI normal to inspection, nondistended, normoactive bowel sounds, soft to palpation, non-tender and non-distended Percussion: normal to percussion Rectal Exam: deferred Assessment & Plan Assessment/Plan (1) Encounter for screening colonoscopy: PLAN: 49-year-old gentleman comes in for screening colonoscopy. He was explained alternatives, risk and benefits include not withstanding bleeding, infection, subsequent perforation, need for return to . He will have an ASA of 3.
[2024-12-08 08:25] VITALS: BP 116/84; BP 87/56; PULSE 77; RESP 16; TEMP 36.1; O2SAT 99
[2024-12-08 08:30] VITALS: BP 116/84; BP 89/56; PULSE 68; RESP 16; O2SAT 97
[2024-12-08 08:31] VITALS: BP 87/56; PULSE 77; RESP 16; TEMP 36.1; O2SAT 100
--- NOTE | 2024-12-08 08:31 | PCM.POST.ANE ---
Anesthesia: Postop Eval I Current Vital Signs Temperature: 97 F Pulse Rate: 77 Blood Pressure: 87/56 Respiratory Rate: 16 Pulse Ox: 100 Oxygen Delivery Method: Room Air Assessment Airway patent: Yes Spontaneous unlabored respirations: Yes Mental status: Asleep nausea: No Vomiting: No Anesthesia Complication: No Fluid Hydration Crystalloid volume administer (ml): 500 Total IV fluid infused: 500 Progress Note Anesthesia document: Postop Eval 1 completed: Yes
--- NOTE | 2024-12-08 08:32 | OP.COLON_ITS ---
Patient Name: Javeir Fuentes Procedure Date: 12/08/2024 7:56 AM Date of : 1975 Age: 49 Procedure: Colonoscopy Indications: Screening for colorectal malignant neoplasm Providers: Chaitanya Rain DO Medicines: Monitored Anesthesia Care Patient Profile: This is a 49 year old male. Refer to note in patient chart for documentation of history and physical. Last Colonoscopy: none. The patient's first colonoscopy is today. Complications: No immediate complications. Procedure: Pre-Anesthesia Assessment: - Prior to the procedure, a History and Physical was performed, and patient medications and allergies were reviewed. The patient is competent. The risks and benefits of the procedure and the sedation options and risks were discussed with the patient. All questions were answered and informed consent was obtained. Patient identification and proposed procedure were verified by the physician in the pre-procedure area. Mental Status Examination: alert and oriented. Airway Examination: normal oropharyngeal airway and neck mobility. Respiratory Examination: clear to auscultation. CV Examination: normal. Prophylactic Antibiotics: The patient does not require prophylactic antibiotics. Prior Anticoagulants: The patient has taken no anticoagulant or antiplatelet agents except for NSAID medication. ASA Grade Assessment: II - A patient with mild systemic disease. After reviewing the risks and benefits, the patient was deemed in satisfactory condition to undergo the procedure. The anesthesia plan was to use monitored anesthesia care (MAC). Immediately prior to administration of medications, the patient was re-assessed for adequacy to receive sedatives. The heart rate, respiratory rate, oxygen saturations, blood pressure, adequacy of pulmonary ventilation, and response to care were monitored throughout the procedure. The physical status of the patient was re-assessed after the procedure. After I obtained informed consent, the scope was passed under direct vision. Throughout the procedure, the patient's blood pressure, pulse, and oxygen saturations were monitored continuously. The colonoscope was introduced through the anus and advanced to the cecum, identified by appendiceal orifice and ileocecal valve. The colonoscopy was performed without difficulty. The patient tolerated the procedure well. Scope In: 8:05:23 AM Scope Withdrawal Time 0 hours 11 minutes 47 seconds Scope Out: 8:20:07 AM Total Procedure Duration Time 0 hours 14 minutes 44 seconds Findings: The perianal and digital rectal examinations were normal. A 10 mm polyp was found in the sigmoid colon. The polyp was sessile. The polyp was removed with a hot snare. Resection and retrieval were complete. Verification of patient identification for the specimen was done. Estimated blood loss was minimal. A few small-mouthed diverticula were found in the recto-sigmoid colon. Non-bleeding internal hemorrhoids were found during retroflexion. The hemorrhoids were Grade I (internal hemorrhoids that do not prolapse). Impression: - One 10 mm polyp in the sigmoid colon, removed with a hot snare. Resected and retrieved. - Diverticulosis in the recto-sigmoid colon. - Non-bleeding internal hemorrhoids. Recommendation: - Repeat colonoscopy in 5 years for surveillance. - Continue present medications. Procedure Code(s): --- Professional --- 14011, Colonoscopy, flexible; with removal of tumor(s), polyp(s), or other lesion(s) by snare technique CPT copyright 2021 [employer]. All rights reserved. The codes documented in this report are preliminary and upon offset assistant press operator review may be revised to meet current compliance requirements. Chaitanya Rain DO 12/08/2024 8:32:28 AM This report has been signed electronically. Number of Addenda: 0 Note Initiated On: 12/08/2024 7:56 AM
--- NOTE | 2024-12-08 08:33 | OP.PROVAT_ITS ---
12/08/2024 Pa Maynard [address] [facility] [address] [place] [address] Re : Colonoscopy procedure for Javier Niceneri Dear Dr. Maynard This procedure was performed on Sunday, December 08, 2024. My impressions and recommendations are as follows: Impressions : - One 10 mm polyp in the sigmoid colon, removed with a hot snare. Resected and retrieved. - Diverticulosis in the recto-sigmoid colon. - Non-bleeding internal hemorrhoids. Recommendations : - Repeat colonoscopy in 5 years for surveillance. - Continue present medications. My findings are described in the full procedure note, which is enclosed. If I can be of further assistance, please feel free to contact me at . Sincerely, Chaitanya Rain, 12/08/2024 8:32:28 AM This report has been signed electronically.
[2024-12-08 08:35] VITALS: BP 116/84; BP 95/59; PULSE 71; RESP 16; TEMP 36.5; O2SAT 99
[2024-12-08 08:47] VITALS: BP 116/84
--- NOTE | 2024-12-08 09:01 | PCM.POSTANE2 ---
Anesthesia Postop Eval I Sum Postop Eval Completion status Anesthesia document: Postop Eval 1 completed: Yes Anesthesia Postop Eval I Summary Anesthesia Postop Eval I Summary: Anesthesia Postop Eval I: Assessment Summary Airway patent Yes 12/08/24 08:31 [email or web address] Spontaneous unlabored Yes 12/08/24 08:31 [email or web address] respirations Mental status Asleep 12/08/24 08:31 [email or web address] nausea No 12/08/24 08:31 [email or web address] Vomiting No 12/08/24 08:31 [email or web address] Anesthesia Postop Eval I: Fluid Summary Crystalloid volume administer 500 12/08/24 08:31 [email or web address] (ml) Colloids volume administered ( ml) Blood Product volume administered (ml) Total IV fluid infused 500 12/08/24 08:31 [email or web address] Anesthesia Postop Eval I: Summary Notes Anesthesia Complication No 12/08/24 08:31 [email or web address] Anesthesia Complication Comment: Post-operative progress note Anesthesia: Postop Eval II Evaluation Mental status: Awake Pain Level: 0 nausea: No Vomiting: No
== END 2024-12-08 08:52 | disposition home or self-care (01) ==
LOC: EN 06:46 → AC 06:47
PROVIDERS: PCP Family Medicine; Referring Provider Family Medicine; Visit Provider Internal Medicine Gastroenterology
PROC: 0DJD8ZZ Inspection of Lower Intestinal Tract, Via Natural or Artificial Opening Endoscopic (ICD-10-PCS; CPT 45378; principal; 2024-12-08 07:40)
DX: Z12.11 Encounter for screening for malignant neoplasm of colon (principal); K64.0 First degree hemorrhoids; K57.90 Diverticulosis of intestine, part unspecified, without perforation or abscess without bleeding; Z87.891 Personal history of nicotine dependence; K63.5 Polyp of colon
CPT/HCPCS: 45385; 88305; J2405

== ENCOUNTER → 2025-01-06 | Outpatient (CLI) | payer OTHER, SELFPAY ==
--- NOTE | 2025-01-06 07:49 | CT_ITS ---
PROCEDURE: LIMITED CHEST CT CARDIAC ONLY 01/06/2025 REASON FOR EXAM: CALCIUM SCORE TECHNIQUE: Procedure Code: [id number] Modality: CT Procedure: LIMITED CHEST CT CARDIAC ONLY CONTRAST: None One or more dose reduction techniques were used (e.g., Automated exposure control, adjustment of the mA and/or kV according to patient size, use of iterative reconstruction technique). RADIATION DOSE SUMMARY: CTDlvol: 12.19 mGy DLP: 219.42 mGycm COMPARISON: None FINDINGS: Small benign-appearing mediastinal lymph nodes. No coronary artery calcification is seen. The heart is nonenlarged. The lungs are unremarkable. CT/Limited Chest CT Cardiac Only IMPRESSION: No coronary artery calcification is seen. Reading Location: [id number]
--- NOTE | 2025-01-09 13:47 | CA.SCORE ---
Calcium Scoring Date of Study:: 01/06/25 Indications Indications: hld Coronary Calcium Scoring: High-resolution Computed Tomographic imaging of the chest was performed on [01/06/25 ], with particular attention paid to the coronary arteries. Images from the examination were analyzed for the presence and extent of coronary artery calcification , using coronary calcium quantification software. The patient tolerated the procedure well and there were no complications. The results of the coronary calcification analysis are provided below. Findings Coronary Artery Left Main (LM): 0 Left Anterior Descending (LAD): 0 Left Circumflex (LCX): 0 Right Coronary Artery (RCA): 0 Total Agatston Score: 0 Percentile Rankin Calcium Scoring Interpretation: Different methods to categorize the overall amount of coronary plaque. Overall amount CAC SIS Visual of coronary plaque P1 Mild -100 <2 1-2 vessels with mild amount of plaque P2 Moderate 101-300 3-4 1-2 vessels with moderate amount, 3 vessels with mild amount of plaque P3 Severe 301-999 5-7 3 vessels with moderate amount, 1 vessel with severe amount of plaque P4 Extensive >1000 >8 2-3 vessels with severe amount of plaque Conclusion: No atherosclerotic plaque noted
== END | disposition home or self-care (01) ==
LOC: CT 07:47
PROVIDERS: PCP Family Medicine; Referring Provider Family Medicine; Visit Provider Family Medicine
DX: E78.41 Elevated Lipoprotein(a) (principal)
CPT/HCPCS: 75571; 76380

== ENCOUNTER → 2025-01-12 | Outpatient (CLI) | payer OTHER, SELFPAY ==
--- OUTSIDE RECORDS SUMMARY | 2025-01-12 07:27 | XMS RPT_ITS | CCD ---
Author Organization [facility] Care Team Providers Care Caretaker Resort Name Role Phone Caesar MARRUFO, Dr. Winn Primary Care Provider Caesar MARRUFO, Dr. Winn Attending Provider [phone] Caesar MARRUFO, Dr. Winn Referring Provider [phone] Caesar MARRUFO, Dr. Winn Primary Care Physician Caesar MARRUFO, Dr. Winn Attending Physician Dr. Chaitanya Rain DO Attending Physician Dr. Chaitanya Rain DO Nurse Practitioner FriendChaitanya Attending Unavailable Maynard, Pa Referring Unavailable Maynard, Pa Primary Care Unavailable FriendChaitanya Consulting Unavailable FriendChaitanya Attending Unavailable Maynrad, Pa Referring Unavailable Maynard, Pa Attending Unavailable Maynard, Pa Primary Care Unavailable Maynard, Pa Attending Unavailable Maynard, Pa Referring Unavailable Maynard, Pa Primary Care Unavailable Maynard, Pa Attending Unavailable Maynard, Pa Referring Unavailable Maynard, Pa Primary Care Unavailable Maynard, Pa Attending Unavailable Maynard, Pa Referring Unavailable Maynard, Pa Primary Care Unavailable Maynard, Pa Attending Unavailable Maynard, Pa Primary Care Unavailable Maynard, Pa Attending Unavailable Maynard, Pa Referring Unavailable Maynard, Pa Primary Care Unavailable FriendChaitanya Attending Unavailable Maynard, Pa Referring Unavailable Maynard, Pa Primary Care Unavailable Medications Current Medications Medication Drug Class(es) Dates Sig (Normalized) Sig (Original) cholecalciferol 0.025 mg oral capsule (3 sources) Vitamin D Start: 12-01-2024 take 1 capsule by mouth once daily Magnesium (3 sources) Start: 12-01-2024 take 1 tablet by mouth once daily Multivitamin (Daily Multi-Vitamin) tablet (3 sources) Start: 12-01-2024 Mary Esther 1-Pen-Kjv-Fish Oil (Fish Oil) 1,200 (144-216) mg capsule (3 sources) Start: 12-01-2024 Problems Problem Classification Problem Date Documented Date Episodic/Chronic Disorders of lipid metabolism (1 source) Elevated Lipoprotein(a); 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)] Onset: 01-06-2025 Chronic Heart valve disorders (7 sources) Tricuspid incompetence, non-rheumatic ; Translations: [Nonrheumatic tricuspid (valve) insufficiency] 12-11-2017 Chronic Hepatitis (1 source) Nonalcoholic steatohepatitis (MENDOZA); Translations: [Nonalcoholic steatohepatitis (MENDOZA)] Onset: 01-02-2025 Chronic Nonspecific chest pain (7 sources) Chest pain; Translations: [Chest pain, unspecified] 12-11-2017 Episodic Other liver diseases (2 sources) Fatty (change of) liver, not elsewhere classified; Translations: [Fatty (change of) liver, not elsewhere classified] Onset: 10-29-2024 Chronic Other screening for suspected conditions (not mental disorders or infectious disease) (16 sources) Electrocardiogram abnormal; Translations: [Abnormal electrocardiogram [ECG] [EKG]] Onset: 10-15-2024 12-11-2017 Episodic Results Test Name Value Interpretation Reference Range Facility Limited Chest CT Cardiac Onl yon 01-06-[address] Cardiac Only [facility] Imaging Services [address] [place] [id number] Cardiac Only MR#: [id number] Acct: [id number] Name: JAVIER FUENTES Rep #: [id number] : 1975 M 49 From: Bear baig MD PCP: Dr. Pa Maynard MD Status: [facility] Study: Limited Chest CT Cardiac Only Date of Exam: Exam# [id number] Ordering Dr: Pa Maynard MD PROCEDURE: LIMITED CHEST CT CARDIAC ONLY 01/06/2025 REASON FOR EXAM: CALCIUM SCORE TECHNIQUE: Procedure Code: CTCCTACHLIM Modality: CT Procedure: LIMITED CHEST CT CARDIAC ONLY CONTRAST: None One or more dose reduction techniques were used (e.g., Automated exposure control, adjustment of the mA and/or kV according to patient size, use of iterative reconstruction technique). RADIATION DOSE SUMMARY: CTDlvol: 12.19 mGy DLP: 219.42 mGycm COMPARISON: None FINDINGS: Small benign-appearing mediastinal lymph nodes. No coronary artery calcification is seen. The heart is nonenlarged. The lungs are unremarkable. CT/Limited Chest CT Cardiac Only IMPRESSION: No coronary artery calcification is seen. Reading Location: [id number] CC: Dr. Pa Maynard MD Machine Maintenance Technician: Signed Normal [facility] Gastroenterology Visit Repor ton 01-02-2025 Gastroenterology Visit Report [facility] Gastroenterology [address] [place] [address] OFFICE VISIT Date of Service: 01/02/25 MR#: [id number] Acct: [id number] Name: JAVIER FUENTES Rep #: [id number] : 1975 Provider: Chaitanya Rain DO Age/Sex: 49/M Location: [facility] Status: Signed Intake Vital Signs 12/08/24 07:05 Height 6 ft 2 in Intake Visit Reasons: FATTY LIVER ABNORMAL ELASTOGRAPHY Allergies No Known Allergies Allergy (Verified 12/08/24 07:04) Medications ???Medication ???Instructions ???Recorded ???Confirmed ???Type cholecalciferol (vitamin D3) 25 25 mcg PO DAILY 12/01/24 01/02/25 History mcg (1,000 unit) capsule (Vitamin D3) magnesium 250 mg tablet 250 mg PO DAILY 12/01/24 01/02/25 History multivitamin (Daily Multi-Vitamin 1 tab PO DAILY 12/01/24 01/02/25 History tablet) omega 4-tks-jdr-fish oil 1,200 mg 1 cap PO DAILY 12/01/24 01/02/25 History (144 mg-216 mg) capsule (Fish Oil) [facility] Medical History Non-smoker Cardiology follow-up encounter History of echocardiogram History of stress test Non-rheumatic tricuspid valve insufficiency Obesity Abnormal celiac antibody panel Fatty liver disease, nonalcoholic Surgical History History of tonsillectomy Family History (Updated 01/02/25 @ 13:22 by Dee Baldwin) Mother Heart disease Fibrosis Cardiomyopathy? 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 * Chief Concern:???Concern about a recent elastography result (7.7 kPa) and potential underlying liver disease. * HPI:???Recent ultrasound with elastography indicated Metabolic Associated Liver Disease (MALD) with a score of 7.7 kPa and liver size of 16 cm. The patient expresses concern that this score puts him in a moderate to severe category. * ???History of being overweight (BMI not specified), but recently lost 20 pounds. Recently diagnosed with osteopenia. No history of diabetes, metabolic disease affecting the liver, or family history of liver disease. * ???No daily medications. * Denies any alcohol use. * Hormonal Concerns:???Reports recent findings of low Sex Hormone Binding Globulin (SHBG) and low total testosterone, but normal free testosterone levels. He is concerned these hormonal changes might be secondary to underlying liver disease. US and elastography 10.29.24 hepatic measurement 17.4cm with fatty infiltration, stiffness measures 7.07kPa. Colonoscopy 12.08.24 One 10 mm polyp in the sigmoid colon, removed with a hot snare. Resected and retrieved. Diverticulosis in the recto-sigmoid colon. Non-bleeding internal hemorrhoids. *BGI established 01.02.25 pt reports he is here to follow up on elastography and to discuss fatty liver. ROS Const Constitutional: No fatigue, fever(s) or weight change ENT ENT: No difficulty swallowing Gastro GI: No abdominal pain, belching, bloating, change in bowel habits, change in stool character, coffee ground emesis, constipation, cramping, diarrhea, heartburn, difficulty swallowing, feeling full early, excessive flatus, incontinent of stools, Vomiting blood/hematemesis, Blood in stool, loose stools, Black,tarry stools, nausea/dyspepsia, pain with swallowing, vomiting or other Musc Musculoskeletal: No joint pain Skin Skin: No yellowing of the eye or itchy eyes Psych Psychiatric: No anxiety and No depression Endo Endocrine: No fatigue or weight change Aller/Imm Allergy/Immunologic: No itchy eyes Campbell/Lymp Hematologic/Lymphatic: No easy bleeding or easy bruising Exam Const General: cooperative, healthy appearing, comfortable and no acute distress Nutritional Appearance: average body habitus and well nourished Orientation: oriented x3 Eyes Sclera: sclerae normal Resp Effort Inspection: normal respiratory effort Auscultation: Bilateral: Clear to Auscultation Cardio Rate: regular rate Rhythm: regular rhythm GI Inspection: normal to inspection Auscultation: normal bowel sounds Percussion: normal to percussion Palpation: no hepatosplenomegaly Assessment and Plan Assessment and Plan (1) MENDOZA (nonalcoholic steatohepatitis): Status: Acute Plan: Elastography Score and Liver Condition * Liver (more content not included)... Normal [facility] Surgical pathology reportOrd ered By: Nata Brown on 12-12-2024 Surgical pathology study [facility] Colonoscopy Reporton 025 Colonoscopy Report [facility] Medical Records Department [address] [place] [address] Colonoscopy Report MR#: [id number] Acct: [id number] Name: JAVIER FUENTES Rep #: [id number] : 1975 49 From: Chaitanya Rain DO PCP: Dr. Pa Maynard MD Status:REG [facility] Patient Name: Javier Fuentes Procedure Date: 12/08/2024 7:56 AM Date of : 1975 Age: 49 Procedure: Colonoscopy Indications: Screening for colorectal malignant neoplasm Providers: Chaitanya Rain DO Medicines: Monitored Anesthesia Care Patient Profile: This is a 49 year old male. Refer to note in patient chart for documentation of history and physical. Last Colonoscopy: none. The patient's first colonoscopy is today. Complications: No immediate complications. Procedure: Pre-Anesthesia Assessment: - Prior to the procedure, a History and Physical was performed, and patient medications and allergies were reviewed. The patient is competent. The risks and benefits of the procedure and the sedation options and risks were discussed with the patient. All questions were answered and informed consent was obtained. Patient identification and proposed procedure were verified by the physician in the pre-procedure area. Mental Status Examination: alert and oriented. Airway Examination: normal oropharyngeal airway and neck mobility. Respiratory Examination: clear to auscultation. CV Examination: normal. Prophylactic Antibiotics: The patient does not require prophylactic antibiotics. Prior Anticoagulants: The patient has taken no anticoagulant or antiplatelet agents except for NSAID medication. ASA Grade Assessment: II - A patient with mild systemic disease. After reviewing the risks and benefits, the patient was deemed in satisfactory condition to undergo the procedure. The anesthesia plan was to use monitored anesthesia care (MAC). Immediately prior to administration of medications, the patient was re-assessed for adequacy to receive sedatives. The heart rate, respiratory rate, oxygen saturations, blood pressure, adequacy of pulmonary ventilation, and response to care were monitored throughout the procedure. The physical status of the patient was re-assessed after the procedure. After I obtained informed consent, the scope was passed under direct vision. Throughout the procedure, the patient's blood pressure, pulse, and oxygen saturations were monitored continuously. The colonoscope was introduced through the anus and advanced to the cecum, identified by appendiceal orifice and ileocecal valve. The colonoscopy was performed without difficulty. The patient tolerated the procedure well. Scope In: 8:05:23 AM Scope Withdrawal Time 0 hours 11 minutes 47 seconds Scope Out: 8:20:07 AM Total Procedure Duration Time 0 hours 14 minutes 44 seconds Findings: The perianal and digital rectal examinations were normal. A 10 mm polyp was found in the sigmoid colon. The polyp was sessile. The polyp was removed with a hot snare. Resection and retrieval were complete. Verification of patient identification for the specimen was done. Estimated blood loss was minimal. A few small-mouthed diverticula were found in the recto-sigmoid colon. Non-bleeding internal hemorrhoids were found during retroflexion. The hemorrhoids were Grade I (internal hemorrhoids that do not prolapse). Impression: - One 10 mm polyp in the sigmoid colon, removed with a hot snare. Resected and retrieved. - Diverticulosis in the recto-sigmoid colon. - Non-bleeding internal hemorrhoids. Recommendation: - Repeat colonoscopy in 5 years for surveillance. - Continue present medications. Procedure Code(s): --- Professional --- 43440, Colonoscopy, flexible; with removal of tumor(s), polyp(s), or other lesion(s) by snare technique CPT copyright 2021 [employer]. All rights reserved. The codes documented in this report are preliminary and upon hospital coder review may be revised to meet current compliance requirements. Chaitanya Rain DO 12/08/2024 8:32:28 AM This report has been signed electronically. Number of Addenda: 0 Note Initiated On: 12/08/2024 7:56 AM 12/08/24 0832 Date Chaitanya Rain DO Cosigner Signature: Date (if indicated) CC: Dr. Pa Maynard MD; Chaitanya Rain DO Date Dictated: 12/08/24 0756 Date Transcribed: Machine Maintenance Technician: BRANDON Signed [facility] MR/OP.Nereida 12-08-2024 MR/OP.[facility] Medical Records Department [address] [place] [address] Provation Physician Letter MR#: [id number] Acct: [id number] Name: JAVIER FUENTES Rep #: [id number] : 1975 49 From: Chaitanya Rain DO PCP: Dr. Pa Maynard MD Status:REG [facility] 12/08/2024 Pa Maynard [address] [place] [address] Re : Colonoscopy procedure for Javier Fuentes Dear Dr. Maynard This procedure was performed on Sunday, December 08, 2024. My impressions and recommendations are as follows: Impressions : - One 10 mm polyp in the sigmoid colon, removed with a hot snare. Resected and retrieved. - Diverticulosis in the recto-sigmoid colon. - Non-bleeding internal hemorrhoids. Recommendations : - Repeat colonoscopy in 5 years for surveillance. - Continue present medications. My findings are described in the full procedure note, which is enclosed. If I can be of further assistance, please feel free to contact me at . Sincerely, Chaitanya Rain DO 12/08/2024 8:32:28 AM This report has been signed electronically. 12/08/24831 Date Chaitanya Rain DO Cosigner Signature: Date (if indicated) CC: Dr. Pa Maynard MD; Chaitanya Rain DO Date Dictated: 12/08/24755 Date Transcribed: Machine Maintenance Technician: BRANDON Signed [facility] MR/POSTOP.[facility] 12-08-2024 MR/POSTOP.[facility] Medical Records Department [address] [place] [address] Anesthesia Postop Eval I 12/08/24830 MR#: [id number] Acct: [id number] Name: JAVIER FUENTES Rep #: [id number] : 1975 49 From: Misael Murphy PCP: Dr. Pa Maynard MD Status:REG [facility] Y Race: C Location: [place] [address] Anesthesia: Postop Eval I Current Vital Signs Temperature: 97 F Pulse Rate: 77 Blood Pressure: 87/56 Respiratory Rate: 16 Pulse Ox: 100 Oxygen Delivery Method: Room Air Assessment Airway patent: Yes Spontaneous unlabored respirations: Yes Mental status: Asleep nausea: No Vomiting: No Anesthesia Complication: No Fluid Hydration Crystalloid volume administer (ml): 500 Total IV fluid infused: 500 Progress Note Anesthesia document: Postop Eval 1 completed: Yes 12/08/24830 Date Misael Samuel Signature: Date CC: Signed Normal [facility] MR/[id number] 12-08-2024 MR/POSTOPAN2 [facility] Medical Records Department [address] [place] [address] Anesthesia Postop Eval II 12/08/24900 MR#: [id number] Acct: [id number] Name: JAVIER FUENTES Rep #: [id number] : 1975 49 From: Omar Lawrence MD PCP: Dr. Pa Maynard MD Status:[facility] Y Race: C Location: EN Anesthesia Postop Eval I Sum Postop Eval Completion status Anesthesia document: Postop Eval 1 completed: Yes Anesthesia Postop Eval I Summary Anesthesia Postop Eval I Summary: Anesthesia Postop Eval I: Assessment Summary Airway patent Yes 12/08/24 08:31 [email or web address] Spontaneous unlabored Yes 12/08/24 08:31 [email or web address] respirations Mental status Asleep 12/08/24 08:31 [email or web address] nausea No 12/08/24 08:31 [email or web address] Vomiting No 12/08/24 08:31 [email or web address] Anesthesia Postop Eval I: Fluid Summary Crystalloid volume administer 500 12/08/24 08:31 [email or web address] (ml) Colloids volume administered ( ml) Blood Product volume administered (ml) Total IV fluid infused 500 12/08/24 08:31 [email or web address] Anesthesia Postop Eval I: Summary Notes Anesthesia Complication No 12/08/24 08:31 [email or web address] Anesthesia Complication Comment: Post-operative progress note Anesthesia: Postop Eval II Evaluation Mental status: Awake Pain Level: 0 nausea: No Vomiting: No 12/08/24900 Date Omar Samuel Signature: Date CC: Signed Normal [facility] Surgery Specimen Level Tracie 12-08-2024 Surgery Specimen Level IV Patient Age/Sex Location Account Attending Physician JAVIER FUENTES 49/M EN [id number] Chaitanya Rain DO Specimen: [id number] Received: 12/08/24 Status: PRISCILA Magaña Num: [id number] Spec Type: COLON BX Subm Dr: DO HENRIETTA Rojo OPERATION: Colonoscopy, polypectomy PRE-OP DIAGNOSIS: Encounter for screening colonoscopy TISSUE SUBMITTED: A- Sigmoid polyp MICROSCOPIC DIAGNOSIS A. Sigmoid colon, polyp, biopsy: * Hyperplastic polyp. MICROSCOPIC DESCRIPTION Slides are reviewed. GROSS DESCRIPTION A. Received in fixative is one container labeled with the patient's name and designated Sigmoid polyp. The specimen consists of a 0.9 x 0.7 x 0.4 cm porras and granular polypoid tissue fragment. The resection margin is inked green and it is bisected. Entirely submitted in 1 cassette. GA 12/08/2024 CPT:21185 Patient Age/Sex Location Account Attending Physician JAVIER FUENTES 49/M EN [id number] Chaitanya Rain DO Signed (signature on file) Dr. Nata Brown MD 12/12/24 4687 Normal [facility] Comment on above: Performed By: #### P SUIV ####[facility] [id number] [place], [place], [address] Bone density reportOrdered B y: Saez Kelly on 11-27-2024 Study report Skeletal system DXA [facility] Imaging Services [address] [place], [place] [address] Dexa Bone Density Study MR#: [id number] Acct: [id number] Name: JAVIER FUENTES Rep #: [id number] : 1975 M 49 From: Jareth Mendoza MD PCP: Dr. Pa Maynard MD Status: REG CLI Study:Dexa Bone Density Study Date of Exam: 11/27/24 Exam# [id number] Ordering Dr: Delfino Maynard MD PROCEDURE: DEXA BONE DENSITY STUDY 11/27/2024 REASON FOR EXAM: M, age 49 y/o . Postmenopausal screening TECHNIQUE: Procedure Code: BDDBD Modality: DX Procedure: DEXA BONE DENSITY STUDY COMPARISON: None FINDINGS: BMD and T-SCORES Lumbar spine: 0.922 g/cm2, T-score -1.5 Levels: L1 through L4 Change from prior: . Left femoral neck: 0.697 g/cm2, T-score -1.7 Femoral neck comparison data not recommended for monitoring change. Prior T-score Left total hip: 0.957 g/cm2, T-score -0.5 Change from prior: . Right femoral neck: 0.763 g/cm2, T-score -1.2 Femoral neck comparison data not recommended for monitoring change. Prior T-score Right total hip: 0.986 g/cm2, T-score -0.3 Change from prior: . The World Health Organization has defined the following categories based on bonedensity: Normal bone density: T-score equal to or greater than -1.0 Osteopenia: T-score between -1.0 and -2.5 Osteoporosis: T-score equal to or less than -2.5 FRAX (or Comparable) Fracture Risk Assessment: 10 Year Probability of Fracture: Major Osteoporotic Fracture: 3.4% Hip Fracture: 0.2% (Note: FRAX is not to be reported in setting of normal range bone density, osteoporosis on DEXA, known history of osteoporosis, prior osteoporotic hip or vertebral fracture, or for any patient undergoing pharmacological treatment for bone loss.) The National Osteoporosis Foundation (NOF) recommends pharmacological treatment for patients with a FRAX 10-year risk of 3% or higher for a hip fracture, or 20% or higher for a major osteoporotic fracture, to prevent osteoporosis and reduce fracture risk. The patient does not meet the pharmacological treatment recommendations for prevention of osteoporosis. BD/Dexa Bone Density Study IMPRESSION: OSTEOPENIA. Recommend follow-up as clinically warranted. Reading Location: [id number] CC: Dr. Pa Maynard MD ~ Machine Maintenance Technician: Signed [facility] Dexa Bone Density Studyon Dexa Bone Density Study [facility] Imaging Services [address] [place] [id number] Dexa Bone Density Study MR#: [id number] Acct: [id number] Name: JAVIER FUENTES Rep #: [id number] : 1975 M 49 From: Se Mendoza MD PCP: Dr. Pa Maynard MD Status: [facility] CL Study: Dexa Bone Density Study Date of Exam: 11/27/24 Exam# [id number] Ordering Dr: Pa Maynard MD PROCEDURE: DEXA BONE DENSITY STUDY 11/27/2024 REASON FOR EXAM: M, age 49 y/o . Postmenopausal screening TECHNIQUE: Procedure Code: BDDBD Modality: DX Procedure: DEXA BONE DENSITY STUDY COMPARISON: None FINDINGS: BMD and T-SCORES Lumbar spine: 0.922 g/cm2, T-score -1.5 Levels: L1 through L4 Change from prior: . Left femoral neck: 0.697 g/cm2, T-score -1.7 Femoral neck comparison data not recommended for monitoring change. Prior T-score Left total hip: 0.957 g/cm2, T-score -0.5 Change from prior: . Right femoral neck: 0.763 g/cm2, T-score -1.2 Femoral neck comparison data not recommended for monitoring change. Prior T-score Right total hip: 0.986 g/cm2, T-score -0.3 Change from prior: . The World Health Organization has defined the following categories based on bone density: Normal bone density: T-score equal to or greater than -1.0 Osteopenia: T-score between -1.0 and -2.5 Osteoporosis: T-score equal to or less than -2.5 FRAX (or Comparable) Fracture Risk Assessment: 10 Year Probability of Fracture: Major Osteoporotic Fracture: 3.4% Hip Fracture: 0.2% (Note: FRAX is not to be reported in setting of normal range bone density, osteoporosis on DEXA, known history of osteoporosis, prior osteoporotic hip or vertebral fracture, or for any patient undergoing pharmacological treatment for bone loss.) The National Osteoporosis Foundation (NOF) recommends pharmacological treatment for patients with a FRAX 10-year risk of 3% or higher for a hip fracture, or 20% or higher for a major osteoporotic fracture, to prevent osteoporosis and reduce fracture risk. The patient does not meet the pharmacological treatment recommendations for prevention of osteoporosis. BD/Dexa Bone Density Study IMPRESSION: OSTEOPENIA. Recommend follow-up as clinically warranted. Reading Location: [id number] CC: Dr. Pa Maynard MD Machine Maintenance Technician: Signed Normal [facility] [id number] [facility]-03-[facility] Normal . [facility] Comment on above: Order Comment: [id number] 2DIHYDROTEST SERUM FRZ Result Comment: Test Ordered: [id number] Dihydrotestosterone Dihydrotestosterone 19 [L ] ng/dL ES Reference Range: . This test was developed and its performance characteristics determined by [facility]. It has not been cleared or approved by the Food and Drug Administration. Reference Range: Adult Male: 30 - 85 Performed at: [facility] [address] [place] [id number] Shop Girl: Idalmis Morris MD, Phone: [phone] Performed at: [facility] [address] [id number] Shop Girl: Brennen Newberry PhD, Phone: [phone] Performed By: #### L 3410.9992 ####[facility] [id number] [facility] [address] [place], [place], [id number] ABD Limited w/ Elastographyo n 10-29-2024 ABD Limited w/ Elastography [facility] Imaging Services [address] [place] [address] ABD Limited w/ Elastography MR#: [id number] Acct: [id number] Name: JAVIER FUENTES Rep #: [id number] : 1975 M 49 From: Bear baig MD PCP: Dr. Pa Maynard MD Status: REG CLI Study: ABD Limited w/ Elastography Date of Exam: 05/20 Exam# [id number] Ordering Dr: Pa Maynard MD PROCEDURE: ABD LIMITED W/ ELASTOGRAPHY REASON FOR EXAM: HX OF FATTY LIVER COMPARISON: Prior study dated May 15, 2013. TECHNIQUE: Procedure Code: USABDLELPARO Modality: US Procedure: ABD LIMITED W/ ELASTOGRAPHY Right upper quadrant abdominal ultrasound. Laura ElastQ Imaging shear wave elastography for non- invasive assessment of liver tissue stiffness. Laura EPIQ Elite. FINDINGS: LIVER: Size: Unremarkable Length: 17.4 cm Echotexture: Diffusely echogenic suggesting fatty infiltration Contour: Normal Lesions: None identified Elastography: EQI Med: 7.07 kPa EQI Med [facility]: 1.52 m/s IQR/Med: 17.3 %* GALLBLADDER: Normal COMMON BILE DUCT: Normal measuring 4 mm. . PANCREAS: Normal Visualized portions of the right kidney are unremarkable. No right upper quadrant ascites. US/ABD Limited w/ Elastography IMPRESSION: Luie-ke-dhogswaw hepatic fibrosis. Diffuse fatty infiltration of the liver. Reference Values: SRU <1.37 m/s (5.7kPa): No to mild fibrosis 1.37 m/s - 2.2 m/s: Moderate to severe fibrosis >2.2 m/s (15kPa): Significant fibrosis / cirrhosis METAVIR Score F2 or higher: 1.34 m/s (5.7kPa) F3 or higher: 1.55 m/s (7.3kPa) F4: 1.80 m/s (10kPa) * If the IQR/Med is >30%, the variance in the measurements is a large and the accuracy of the measurement may be in question. Reading Location: [facility] CC: Dr. Pa Maynard MD Machine Maintenance Technician: Signed Normal [facility] DHEA Sulfateon 10-16-2024 DHEA SULFATE 145.0 ug/dL Normal 71.6-375.4 [facility] Comment on above: Order Comment: Order Date: 10/07/24Order Info: 0024-1 - TESTFN Performed By: #### L 3300.1750, L501.9985, L3100.5400, L3300.1500, L3300.3500, L506.1001, L500.4100, L3410.9992, L501.2300, L3100.5060, L501.5200, L3100.5055 ####[facility] [address] [facility]. [place], [place], [id number] Insulin Levelon 10-16-2024 INSULIN,FASTING 10.5 uIU/mL Normal 2.6-24.9 [facility] Comment on above: Order Comment: Order Date: 10/07/24Order Info: 0024-1 - TESTF Performed By: #### L 3300.1750, L501.9985, L3100.5400, L3300.1500, L3300.3500, L506.1001, L500.4100, L3410.9992, L501.2300, L3100.5060, L501.5200, L3100.5055 ####[facility] [address] [facility]. [place], [place], [id number] PROLACTIN 4465on 10-16-2024 PROLACTIN 17.6 ng/mL Normal 3.9-22.7 [facility] Comment on above: Order Comment: Order Date: 10/07/24Order Info: 0024-1 - TESTF Performed By: #### L 3300.1750, L501.9985, L3100.5400, L3300.1500, L3300.3500, L506.1001, L500.4100, L3410.9992, L501.2300, L3100.5060, L501.5200, L3100.5055 ####[facility] [address] [facility]. [place], [place], [id number] Sex Hormone-binding Globulin on 10-16-2024 SHBG 16.8 nmol/L Normal 16.5-55.9 [facility] Comment on above: Order Comment: Order Date: 10/07/24Order Info: 0024- - TESTF Result Comment: Perf ormed at: - [facility] [id number] Shop Girl: Brennen Newberry PhD, Phone: [phone] Performed at: - [facility] [id number] Shop Girl: Beba Siegel MD, Phone: [phone] Performed By: #### L 3300.1750, L501.9985, L3100.5400, L3300.1500, L3300.3500, L506.1001, L500.4100, L3410.9992, L501.2300, L3100.5060, L501.5200, L3100.5055 ####[facility] [address] [facility]. [place], [place], [id number] Testosterone, Total / Freeon 10-16-2024 [facility] 9.78 ng/dL Normal 5.00-21.00 [facility] Comment on above: Order Comment: Order Date: 10/07/24 Order Info: 0024-1 - TESTF N Performed By: #### L 100.0100, L3100.5310, L500.4050, L501.9910, L3500.0000 #### [facility] [address] [place], [address] TESTOSTER,TOTAL 286 ng/dL Normal 264-916 [facility] Comment on above: Order Comment: Order Date: 10/07/24 Order Info: 0024-1 - TESTF N Result Comment: Adul t male reference interval is based on a population of healthy nonobese males (BMI <30) between 19 and 39 years old. Danita et.al. JCEM 2017,102;5927-3715. PMID: [id number]. Performed By: #### L 100.0100, L3100.5310, L500.4050, L501.9910, L3500.0000 #### [facility] [address] [place], [address] TESTOSTERONE,%F 3.42 Normal 1.50-4.20 [facility] Comment on above: Order Comment: Order Date: 10/07/24 Order Info: 0024-1 - TESTF N Performed By: #### L 100.0100, L3100.5310, L500.4050, L501.9910, L3500.0000 #### [facility] [address] [place], [address] L3410.9992on 10-15-2024 [facility] [place] COM[place] Normal . [facility] Comment on above: Order Comment: 57590 5Apolipo B/ RED TOP POUR OFF RT Result Comment: Test Ordered: 414075 Apolipoprotein B Apolipoprotein B 103 [H ] mg/dL Reference Range: <90 Desirable < 90 Borderline High 90 - 99 High 100 - 130 Very High >130 ASCVD RISK THERAPEUTIC TARGET CATEGORY APO B (mg/dL) Very High Risk <80 (if extreme risk <70) High Risk <90 Moderate Risk <90 Performed at: - [facility] [id number] Shop Girl: Beba Siegel MD, Phone: [phone] Performed at: [facility] [address] [id number] Shop Girl: Brennen Newberry PhD, Phone: [phone] Performed By: #### L 3300.1750, L501.9985, L3100.5400, L3300.1500, L3300.3500, L506.1001, L500.4100, L3410.9992, L501.2300, L3100.5060, L501.5200, L3100.5055 ####[facility] [address] [place], [place], [id number] Absolute lymphocyte countOrd ered By: Pa Maynard on 10-13-2024 Lymphocytes Auto (Unsp spec) [#/Vol] 1.78 10*3/uL 0.83-4.51 [facility] Absolute neutrophil countOrd ered By: Pa Maynard on 10-13-2024 Neutrophils (Bld) [#/Vol] 2.0 10*3/uL 2.0-7.7 [facility] Anion gap in Serum or Plasma Ordered By: Pa Maynard on 10-13-2024 Anion gap [Moles/Vol] 10 mmol/L 5-15 [facility] Automated lymphocyte count a s percentage of total leukocytesOrdered By: Pa Maynard on 10-13-2024 Lymphocytes/100 WBC Auto (Unsp spec) 40.5 % - [facility] BUN/creatinine ratioOrdered By: Pa Maynard on 10-13-2024 Urea nitrogen/Creatinine [Mass ratio] 24.0 mg/mg High 10-20 [facility] Basophil percentageOrdered B y: Pa Maynard on 10-13-2024 Basophils/100 WBC (Bld) 0.9 % 0-1 [facility] Bilirubin, totalOrdered By: Pa Maynard on 10-13-2024 Bilirubin [Mass/Vol] 0.43 mg/dL 0.00-1.30 [facility] CBC W/Diff, Automatedon 09-26 Absolute Lymph 1.78 X10 3/uL Normal 0.83-4.51 [facility] Comment on above: Order Comment: Order Date: 10/07/24 Order Info: 0184-1 - CBCD Performed By: #### L 100.0100, L3100.5310, L500.4050, L501.9910, L3500.0000 #### [facility] [address] [place], [address] Absolute Neut 2.0 X10 3/uL Normal 2.0-7.7 [facility] Comment on above: Order Comment: Order Date: 10/07/24 Order Info: 0184- - CBCD Performed By: #### L 100.0100, L3100.5310, L500.4050, L501.9910, L3500.0000 #### [facility] [address] [place], [address] Basophils/100 WBC (Bld) 0.9 % Normal 0-1 [facility] Comment on above: Order Comment: Order Date: 10/07/24 Order Info: 0184-1 - CBCD Performed By: #### L 100.0100, L3100.5310, L500.4050, L501.9910, L3500.0000 #### [facility] [address] [place], [address] Eosinophils/100 WBC (Bld) 5.5 % High 0-5 [facility] Comment on above: Order Comment: Order Date: 10/07/24 Order Info: 0184- - CBCD Performed By: #### L 100.0100, L3100.5310, L500.4050, L501.9910, L3500.0000 #### [facility] [address] [place], [address] Erythrocyte distribution width (RBC) [Ratio] 13.2 % Normal 11.6-14.6 [facility] Comment on above: Order Comment: Order Date: 10/07/24 Order Info: 0184-1 - CBCD Performed By: #### L 100.0100, L3100.5310, L500.4050, L501.9910, L3500.0000 #### [facility] [address] [place], [address] Hematocrit (Bld) [Volume fraction] 45.1 % Normal 40-54 [facility] Comment on above: Order Comment: Order Date: 10/07/24 Order Info: 0184-1 - CBCD Performed By: #### L 100.0100, L3100.5310, L500.4050, L501.9910, L3500.0000 #### [facility] [address] [place], [address] Hemoglobin (Bld) [Mass/Vol] 14.5 g/dL Normal 13.0-16.5 [facility] Comment on above: Order Comment: Order Date: 10/07/24 Order Info: 0184-1 - CBCD Performed By: #### L 100.0100, L3100.5310, L500.4050, L501.9910, L3500.0000 #### [facility] [address] [place], [address] IG% 0.200 Normal 0.0-0.9 [facility] Comment on above: Order Comment: Order Date: 10/07/24 Order Info: 0184-1 - CBCD Result Comment: IG% - Immature Granulocytes (promyelocytes, myelocytes and metamyelocytes) > 1% indicates that a LEFT SHIFT is Present. Performed By: #### L 100.0100, L3100.5310, L500.4050, L501.9910, L3500.0000 #### [facility] [address] [place], [address] Lymphocytes/100 WBC (Bld) 40.5 % Normal 19-41 [facility] Comment on above: Order Comment: Order Date: 10/07/24 Order Info: 0184-1 - CBCD Performed By: #### L 100.0100, L3100.5310, L500.4050, L501.9910, L3500.0000 #### [facility] [address] [place], [address] MCH (RBC) [Entitic mass] 27.5 pg Normal 27.0-32.0 [facility] Comment on above: Order Comment: Order Date: 10/07/24 Order Info: 0184-1 - CBCD Performed By: #### L 100.0100, L3100.5310, L500.4050, L501.9910, L3500.0000 #### [facility] [address] [place], [address] MCHC (RBC) [Mass/Vol] 32.2 g/dL Normal 32-36 [facility] Comment on above: Order Comment: Order Date: 10/07/24 Order Info: 0184- - CBCD Performed By: #### L 100.0100, L3100.5310, L500.4050, L501.9910, L3500.0000 #### [facility] [address] [place], [address] MCV (RBC) [Entitic vol] 85.4 fL Normal 80-94 [facility] Comment on above: Order Comment: Order Date: 10/07/24 Order Info: 0184- - CBCD Performed By: #### L 100.0100, L3100.5310, L500.4050, L501.9910, L3500.0000 #### [facility] [address] [place], [address] Monocytes/100 WBC (Bld) 8.2 % Normal 0-10 [facility] Comment on above: Order Comment: Order Date: 10/07/24 Order Info: 0184-1 - CBCD Performed By: #### L 100.0100, L3100.5310, L500.4050, L501.9910, L3500.0000 #### [facility] [address] [place], [address] Neutrophils/100 WBC (Bld) 44.7 % Low 47-70 [facility] Comment on above: Order Comment: Order Date: 10/07/24 Order Info: 0184-1 - CBCD Performed By: #### L 100.0100, L3100.5310, L500.4050, L501.9910, L3500.0000 #### [facility] [address] [place], [address] Nucleated RBC (Bld) [#/Vol] 0 10*3/uL Normal 0-5 [facility] Comment on above: Order Comment: Order Date: 10/07/24 Order Info: 0184-1 - CBCD Performed By: #### L 100.0100, L3100.5310, L500.4050, L501.9910, L3500.0000 #### [facility] [address] [place], [address] Platelet mean volume (Bld) [Entitic vol] 13.3 fL High 6.2-12.0 [facility] Comment on above: Order Comment: Order Date: 10/07/24 Order Info: 0184-1 - CBCD Performed By: #### L 100.0100, L3100.5310, L500.4050, L501.9910, L3500.0000 #### [facility] [address] [place], [address] Platelets (Bld) [#/Vol] 127 10*3/uL Low 150-450 [facility] Comment on above: Order Comment: Order Date: 10/07/24 Order Info: 0184-1 - CBCD Performed By: #### L 100.0100, L3100.5310, L500.4050, L501.9910, L3500.0000 #### [facility] [address] [place], [address] RBC (Bld) [#/Vol] 5.28 10*6/uL Normal 4.6-6.2 [facility] Comment on above: Order Comment: Order Date: 10/07/24 Order Info: 0184-1 - CBCD Performed By: #### L 100.0100, L3100.5310, L500.4050, L501.9910, L3500.0000 #### [facility] [address] [place], [address] RDW SD 41.4 fl Normal 35.1-43.9 [facility] Comment on above: Order Comment: Order Date: 10/07/24 Order Info: 0184-1 - CBCD Performed By: #### L 100.0100, L3100.5310, L500.4050, L501.9910, L3500.0000 #### [facility] [address] [place], [address] WBC (Bld) [#/Vol] 4.4 10*3/uL Normal 4.4-11.0 [facility] Comment on above: Order Comment: Order Date: 10/07/24 Order Info: 0184-1 - CBCD Performed By: #### L 100.0100, L3100.5310, L500.4050, L501.9910, L3500.0000 #### [facility] [address] [place], [address] Calculated very low density lipoprotein (VLDL) cholesterol measurementOrdered By: Pa Maynard on 10-13-2024 Calculated very low density lipoprotein (VLDL) cholesterol measurement 22 mg/dL 5-40 [facility] Carbon dioxide, total [Moles /volume] in Central venous bloodOrdered By: Pa Maynard on 10-13-2024 CO2 [Moles/Vol] 26.4 mmol/L 21.0-32.0 [facility] Chloride assayOrdered By: Delfino Maynard on 10-13-2024 Chloride [Moles/Vol] 105 mmol/L 98-108 [facility] Comprehensive Metabolic Prof ilon 10-13-2024 Albumin [Mass/Vol] 4.1 g/dL Normal 3.5-5.0 [facility] Comment on above: Order Comment: Order Date: 10/07/24 Order Info: 0786-1 - CMP Order Info: 2857-1 - PSA Performed By: #### L 100.0100, L3100.5310, L500.4050, L501.9910, L3500.0000 #### [facility] [address] [place], [address] Albumin/Globulin [Mass ratio] 1.5 {ratio} Normal 0.9-2.4 [facility] Comment on above: Order Comment: Order Date: 10/07/24 Order Info: 0786- - CMP Order Info: 28508-26 - PSA Performed By: #### L 100.0100, L3100.5310, L500.4050, L501.9910, L3500.0000 #### [facility] [address] [place], [address] ALK PHOS 57 U/L Normal 40-129 [facility] Comment on above: Order Comment: Order Date: 10/07/24 Order Info: 0786 - CMP Order Info: 28508-26 - PSA Performed By: #### L 100.0100, L3100.5310, L500.4050, L501.9910, L3500.0000 #### [facility] [address] [place], [address] ALT [Catalytic activity/Vol] 39 U/L Normal <=46 [facility] Comment on above: Order Comment: Order Date: 10/07/24 Order Info: 0786- - CMP Order Info: 28508-26 - PSA Performed By: #### L 100.0100, L3100.5310, L500.4050, L501.9910, L3500.0000 #### [facility] [address] [place], [address] AST [Catalytic activity/Vol] 34 U/L Normal <=37 [facility] Comment on above: Order Comment: Order Date: 10/07/24 Order Info: 0786- - CMP Order Info: 28508-26 - PSA Performed By: #### L 100.0100, L3100.5310, L500.4050, L501.9910, L3500.0000 #### [facility] [address] [place], [address] Bilirubin [Mass/Vol] 0.43 mg/dL Normal 0.00-1.30 [facility] Comment on above: Order Comment: Order Date: 10/07/24 Order Info: 785-02 - CMP Order Info: 2856-02 - PSA Performed By: #### L 100.0100, L3100.5310, L500.4050, L501.9910, L3500.0000 #### [facility] [address] [place], [address] BUN/CRE 24.0 RATIO High 10-20 [facility] Comment on above: Order Comment: Order Date: 10/07/24 Order Info: 785-02 - CMP Order Info: 2856-02 - PSA Performed By: #### L 100.0100, L3100.5310, L500.4050, L501.9910, L3500.0000 #### [facility] [address] [place], [address] Calcium [Mass/Vol] 9.1 mg/dL Normal 7.6-11.0 [facility] Comment on above: Order Comment: Order Date: 10/07/24 Order Info: 785-02 - CMP Order Info: 2856-02 - PSA Performed By: #### L 100.0100, L3100.5310, L500.4050, L501.9910, L3500.0000 #### [facility] [address] [place], [address] Chloride [Moles/Vol] 105 mmol/L Normal 98-108 [facility] Comment on above: Order Comment: Order Date: 10/07/24 Order Info: 785-02 - CMP Order Info: 2856-02 - PSA Performed By: #### L 100.0100, L3100.5310, L500.4050, L501.9910, L3500.0000 #### [facility] [address] [place], [place], [address] CO2 [Moles/Vol] 26.4 mmol/L Normal 21.0-32.0 [facility] Comment on above: Order Comment: Order Date: 10/07/24 Order Info: 0786- - CMP Order Info: 2856-02 - PSA Performed By: #### L 100.0100, L3100.5310, L500.4050, L501.9910, L3500.0000 #### [facility] [address] [place], [place], [id number] Creatinine [Mass/Vol] 0.99 mg/dL Normal 0.70-1.20 [facility] Comment on above: Order Comment: Order Date: 10/07/24 Order Info: 07 - CMP Order Info: 2856-02 - PSA Performed By: #### L 100.0100, L3100.5310, L500.4050, L501.9910, L3500.0000 #### [facility] [address] [place], [place], [id number] GAP 10 Normal 5-15 [facility] Comment on above: Order Comment: Order Date: 10/07/24 Order Info: 0786 - CMP Order Info: 2856-02 - PSA Performed By: #### L 100.0100, L3100.5310, L500.4050, L501.9910, L3500.0000 #### [facility] [address] [place], [place], [address] [phone] GFR/1.73 sq M.predicted among non-blacks MDRD (S/P/Bld) [Vol rate/Area] 93 mL/min/{1.73_m2} Normal >60 [facility] Comment on above: Order Comment: Order Date: 10/07/24 Order Info: 0786- - CMP Order Info: 2856-02 - PSA Result Comment: mL/m in/1.73m2 CKD-EPI Creatinine Equation (2020) Performed By: #### L 100.0100, L3100.5310, L500.4050, L501.9910, L3500.0000 #### [facility] [address] [place], [address] Globulin (S) [Mass/Vol] 2.7 g/dL Normal 2.2-4.2 [facility] Comment on above: Order Comment: Order Date: 10/07/24 Order Info: 785-02 - CMP Order Info: 2856-02 - PSA Performed By: #### L 100.0100, L3100.5310, L500.4050, L501.9910, L3500.0000 #### [facility] [address] [place], [address] Glucose [Mass/Vol] 92 mg/dL Normal 70-99 [facility] Comment on above: Order Comment: Order Date: 10/07/24 Order Info: 785-02 - CMP Order Info: 2856-02 - PSA Performed By: #### L 100.0100, L3100.5310, L500.4050, L501.9910, L3500.0000 #### [facility] [address] [facility] [place], [address] Potassium [Moles/Vol] 4.1 mmol/L Normal 3.3-5.1 [facility] Comment on above: Order Comment: Order Date: 10/07/24 Order Info: 785-02 - CMP Order Info: 2856-02 - PSA Performed By: #### L 100.0100, L3100.5310, L500.4050, L501.9910, L3500.0000 #### [facility] [address] [place], [address] Sodium [Moles/Vol] 141 mmol/L Normal 133-145 [facility] Comment on above: Order Comment: Order Date: 10/07/24 Order Info: 785-02 - CMP Order Info: 2856-02 - PSA Performed By: #### L 100.0100, L3100.5310, L500.4050, L501.9910, L3500.0000 #### [facility] [address] [place], [address] T PROT 6.8 g/dL Normal 5.9-8.4 [facility] Comment on above: Order Comment: Order Date: 10/07/24 Order Info: 0786-1 - CMP Order Info: 28508-26 - PSA Performed By: #### L 100.0100, L3100.5310, L500.4050, L501.9910, L3500.0000 #### [facility] [address] [place], [address] Urea nitrogen [Mass/Vol] 24 mg/dL High 4-19 [facility] Comment on above: Order Comment: Order Date: 10/07/24 Order Info: 0786-1 - CMP Order Info: [id number] - PSA Performed By: #### L 100.0100, L3100.5310, L500.4050, L501.9910, L3500.0000 #### [facility] [address] [place], [address] Eosinophil percentageOrdered By: Pa Maynard on 10-13-2024 Eosinophils/100 WBC (Bld) 5.5 % High 0-5 [facility] Erythrocyte distribution wid th ratioOrdered By: Pa Maynard on 10-13-2024 Erythrocyte distribution width (RBC) [Ratio] 13.2 % 11.6-14.6 [facility] Erythrocyte distribution wid th standard deviationOrdered By: Pa Maynard on 10-13-2024 Erythrocyte distribution width (RBC) [Ratio] 41.4 fl 35.1-43.9 [facility] Estradiolon 10-13-2024 ESTRADIOL 28.6 pg/mL Normal [facility] Comment on above: Order Comment: Order Date: 10/07/24Order Info: 0786-1 - CMPOrder Info: [id number] - PSA Result Comment: MALE S ADULT MALE: 10-40 [...] by age 18. Performed By: #### L 3300.1750, L501.9985, L3100.5400, L3300.1500, L3300.3500, L506.1001, L500.4100, L3410.9992, L501.2300, L3100.5060, L501.5200, L3100.5055 ####[facility] [address] [place], [address] FSH and LHon 10-13-2024 FSH 2.2 mIU/mL Normal [facility] Comment on above: Order Comment: Order Date: 10/07/24Order Info: 0786-1 - CMPOrder Info: 2857-1 - PSA Result Comment: FEMA LE: Follicular: 1.4 - 18.1 mIU/mL Midcycle: 3.4 - 33.4 mIU/mL Luteal: 1.5 - 9.1 mIU/mL Post Menopause: 23.0 - 116.3 mIU/mL MALE: 1.4 - 18.1 mIU/mL Performed By: #### L 3300.1750, L501.9985, L3100.5400, L3300.1500, L3300.3500, L506.1001, L500.4100, L3410.9992, L501.2300, L3100.5060, L501.5200, L3100.5055 ####[facility] [address] [place], [place], [id number] LH 7.8 mIU/mL Normal [facility] Comment on above: Order Comment: Order Date: 10/07/24Order Info: 0786-1 - CMPOrder Info: 2857-1 - PSA Result Comment: FEMA LE: Follicular: 1.9-12.5 mIU/mL Midcycle: 8.7-76.3 mIU/mL Luteal: 0.5-16.9 mIU/mL Post Menopause: 15.9-54.0 mIU/mL MALE: 20-70 Years: 1.5-9.3 mIU/mL >70 Years: 3.1-34.6 mIU/mL Performed By: #### L 3300.1750, L501.9985, L3100.5400, L3300.1500, L3300.3500, L506.1001, L500.4100, L3410.9992, L501.2300, L3100.5060, L501.5200, L3100.5055 ####[facility] [address] [place], [address] Free testosterone percentage Ordered By: Pa Maynard on 10-13-2024 Testosterone Free/Testosterone.total [Mass fraction] 3.42 % 1.50-4.20 [facility] Glomerular filtration rate ( GFR) estimation/1.73 sq m using serum, plasma, or whole bOrdered By: Pa Maynard on 10-13-2024 GFR/1.73 sq M.predicted among non-blacks MDRD (S/P/Bld) [Vol rate/Area] 93 mL/min/{1.73_m2} >60 [facility] Comment on above: mL/min/1.73m2 CKD-EP I Creatinine Equation (2020) Hematocrit Auto (Bld) [Volum e fraction]Ordered By: Pa Manyard on 10-13-2024 Hematocrit (Bld) [Volume fraction] 45.1 % 40-54 [facility] Hemoglobin A1con 10-13-2024 HbA1c (Bld) [Mass fraction] 5.5 % Normal <=5.6 [facility] Comment on above: Result Comment: Norm al < 5.7 % Prediabetic 5.7 - 6.4 % Diabetic >or= 6.5 % Please note range changes. Performed By: #### L 3300.1750, L501.9985, L3100.5400, L3300.1500, L3300.3500, L506.1001, L500.4100, L3410.9992, L501.2300, L3100.5060, L501.5200, L3100.5055 #### [facility] [place], [address] Hemoglobin A1c percentageOrd ered By: Pa Maynard on 10-13-2024 HbA1c (Bld) [Mass fraction] 5.5 % <5.7 [facility] Comment on above: Normal < 5.7 % Predi abetic 5.7 - 6.4 % Diabetic >or= 6.5 % Please note range changes. Hemoglobin measurementOrdere d By: Pa Maynard on 10-13-2024 Hemoglobin (Bld) [Mass/Vol] 14.5 g/dL 13.0-16.5 [facility] Immature granulocytes/100 WB C Auto (Bld)Ordered By: Pa Maynard on 10-13-2024 Immature granulocytes/100 WBC (Bld) 0.200 % 0.0-0.9 [facility] Comment on above: IG% - Immature Granu locytes (promyelocytes, myelocytes and metamyelocytes) > 1% indicates that a LEFT SHIFT is Present. LDL calc ser/plasOrdered By: Pa Maynard on 10-13-2024 Cholesterol in LDL [Mass/Vol] 114 mg/dL [facility] Comment on above: Wbxsdilmyg=254-333 m g/dL & Higher Jlpc=438 mg/dL or greaterFriedwald Equation for LDL-C LH ser/plasOrdered By: Pa Maynard on 10-13-2024 Lutropin Qn 7.8 m[IU]/mL [facility] Comment on above: FEMALE:Follicular: 1 .9-12.5 mIU/mLMidcycle: 8.7-76.3 mIU/mLLuteal: 0.5-16.9 mIU/mLPost Menopause: 15.9-54.0 mIU/mLMALE:20-70 Years: 1.5-9.3 mIU/mL>70 Years: 3.1-34.6 mIU/mL Laboratory - Chemistry and C hemistry - challengeOrdered By: Pa Maynard on 10-13-2024 AST [Catalytic activity/Vol] 34 U/L <38 [facility] Lipid Profileon 10-13-2024 CHOL:HDL 3.99 Normal [facility] Comment on above: Order Comment: Order Date: 10/07/24Order Info: [id number] - CMPOrder Info: [id number]- - PSA Performed By: #### L 3300.1750, L501.9985, L3100.5400, L3300.1500, L3300.3500, L506.1001, L500.4100, L3410.9992, L501.2300, L3100.5060, L501.5200, L3100.5055 ####[facility] [address] [place], [place], [id number] Cholesterol [Mass/Vol] 181 mg/dL Normal <=200 [facility] Comment on above: Order Comment: Order Date: 10/07/24Order Info: [id number] - CMPOrder Info: [id number] - PSA Result Comment: Chol esterol level, Desirable <200 mg/dL Borderline high cholesterol 200-239 mg/dL High cholesterol >=240 mg/dL Recommendations of the NCEP Adult Treatment Panel for the following risk-cutoff thresholds for the [place] population. Performed By: #### L 3300.1750, L501.9985, L3100.5400, L3300.1500, L3300.3500, L506.1001, L500.4100, L3410.9992, L501.2300, L3100.5060, L501.5200, L3100.5055 ####[facility] [address] [place], [place], [id number] Cholesterol in HDL [Mass/Vol] 45 mg/dL Normal [facility] Comment on above: Order Comment: Order Date: 10/07/24Order Info: [id number] - CMPOrder Info: [id number]- - PSA Result Comment: [facility] Cholesterol Education Program (NCEP) guidelines: <40 mg/dL: Low HDL-cholesterol (major risk factor for CHD) >= 60 mg/dL: High HDL-cholesterol (negative risk factor for CHD) HDL-cholesterol is affected by a number of factors, e.g. smoking, exercise, hormones, sex and age. Performed By: #### L 3300.1750, L501.9985, L3100.5400, L3300.1500, L3300.3500, L506.1001, L500.4100, L3410.9992, L501.2300, L3100.5060, L501.5200, L3100.5055 ####[facility] [address] [place], [place], [phone](103) Cholesterol in LDL [Mass/Vol] 114 mg/dL Normal [facility] Comment on above: Order Comment: Order Date: 10/07/24Order Info: [id number] - CMPOrder Info: [id number]- - PSA Result Comment: Bord ykszhb=715-619 mg/dL Higher Nmid=275 mg/dL or greater Friedwald Equation for LDL-C Performed By: #### L 3300.1750, L501.9985, L3100.5400, L3300.1500, L3300.3500, L506.1001, L500.4100, L3410.9992, L501.2300, L3100.5060, L501.5200, L3100.5055 ####[facility] [address] [place], [place], [phone]) Cholesterol in VLDL [Mass/Vol] 22 mg/dL Normal 5-40 [facility] Comment on above: Order Comment: Order Date: 10/07/24Order Info: [id number] - CMPOrder Info: [id number]- - PSA Performed By: #### L 3300.1750, L501.9985, L3100.5400, L3300.1500, L3300.3500, L506.1001, L500.4100, L3410.9992, L501.2300, L3100.5060, L501.5200, L3100.5055 ####[facility] [address] [place], [address] Triglyceride [Mass/Vol] 109 mg/dL Normal [facility] Comment on above: Order Comment: Order Date: 10/07/24Order Info: [id number] - CMPOrder Info: [id number] - PSA Result Comment: The drugs N-Acetylcysteine and Metamizole may falsely depress this assay. Normal range: <150 mg/dL Borderline High: 150-199 mg/dL High: 200-499 mg/dL Very High: >500 mg/dL Performed By: #### L 3300.1750, L501.9985, L3100.5400, L3300.1500, L3300.3500, L506.1001, L500.4100, L3410.9992, L501.2300, L3100.5060, L501.5200, L3100.5055 ####[facility] [address] [facility] [place], [place], [phone] MCV (mean corpuscular volume ) determinationOrdered By: Pa Maynard on 10-13-2024 MCV (RBC) [Entitic vol] 85.4 fL 80-94 [facility] Magnesiumon 10-13-2024 Magnesium [Mass/Vol] 2.1 mg/dL Normal 1.5-2.2 [facility] Comment on above: Order Comment: Order Date: 10/07/24Order Info: [id number] - CMPOrder Info: [id number] - PSA Performed By: #### L 3300.1750, L501.9985, L3100.5400, L3300.1500, L3300.3500, L506.1001, L500.4100, L3410.9992, L501.2300, L3100.5060, L501.5200, L3100.5055 ####[facility] [address] [place], [address] Magnesium measurement (mass/ volume)Ordered By: Pa Maynard on 10-13-2024 Magnesium (Unsp spec) [Mass/Vol] 2.1 mg/dL 1.5-2.2 [facility] Mean corpuscular hemoglobin (MCH) determinationOrdered By: Pa Maynard on 10-13-2024 MCH (RBC) [Entitic mass] 27.5 pg 27.0-32.0 [facility] Mean corpuscular hemoglobin concentration (MCHC) determinationOrdered By: Pa Maynard on 10-13-2024 MCHC (RBC) [Mass/Vol] 32.2 g/dL 32-36 [facility] Mean platelet volume determi nationOrdered By: Pa Maynard on 10-13-2024 Platelet mean volume (Bld) [Entitic vol] 13.3 fL High 6.2-12.0 [facility] Monocyte percentageOrdered B y: Pa Maynard on 10-13-2024 Monocytes/100 WBC (Bld) 8.2 % 0-10 [facility] NMR Lipoprofileon 10-13-2024 CHOL TOTAL Normal [facility] Comment on above: Order Comment: Order Date: 10/07/24 Order Info: [id number] - NMRLIP Result Comment: SEND OUT Performed By: #### L 100.0100, L3100.5310, L500.4050, L501.9910, L3500.0000 #### [facility] [address] [place], [address] HDL-C Normal [facility] Comment on above: Order Comment: Order Date: 10/07/24 Order Info: [id number] - NMRLIP Result Comment: SEND OUT Performed By: #### L 100.0100, L3100.5310, L500.4050, L501.9910, L3500.0000 #### [facility] [address] [place], [address] HDL-P TOTAL Normal [facility] Comment on above: Order Comment: Order Date: 10/07/24 Order Info: [id number] - NMRLIP Result Comment: SEND OUT Performed By: #### L 100.0100, L3100.5310, L500.4050, L501.9910, L3500.0000 #### [facility] [address] [place], [address] INS. RES. SCORE Normal [facility] Comment on above: Order Comment: Order Date: 10/07/24 Order Info: [id number] - NMRLIP Result Comment: SEND OUT Performed By: #### L 100.0100, L3100.5310, L500.4050, L501.9910, L3500.0000 #### [facility] [address] [place], [address] LDL SIZE Normal [facility] Comment on above: Order Comment: Order Date: 10/07/24 Order Info: [id number]- - NMRLIP Result Comment: SEND OUT Performed By: #### L 100.0100, L3100.5310, L500.4050, L501.9910, L3500.0000 #### [facility] [address] [place], [address] LDL-C (NIH CALC Normal [facility] Comment on above: Order Comment: Order Date: 10/07/24 Order Info: [id number]- - NMRLIP Result Comment: SEND OUT Performed By: #### L 100.0100, L3100.5310, L500.4050, L501.9910, L3500.0000 #### [facility] [address] [place], [address] LDL-P Normal [facility] Comment on above: Order Comment: Order Date: 10/07/24 Order Info: [id number]- - NMRLIP Result Comment: SEND OUT Performed By: #### L 100.0100, L3100.5310, L500.4050, L501.9910, L3500.0000 #### [facility] [address] [place], [address] SMALL LDL-P Normal [facility] Comment on above: Order Comment: Order Date: 10/07/24 Order Info: [id number] - NMRLIP Result Comment: SEND OUT Performed By: #### L 100.0100, L3100.5310, L500.4050, L501.9910, L3500.0000 #### [facility] [address] [place], [address] TRIGLYCERIDES Normal [facility] Comment on above: Order Comment: Order Date: 10/07/24 Order Info: [id number] - NMRLIP Result Comment: SEND OUT Performed By: #### L 100.0100, L3100.5310, L500.4050, L501.9910, L3500.0000 #### [facility] [address] [place], [place], [id number] Neutrophil percentageOrdered By: Pa Maynard on 10-13-2024 Neutrophils/100 WBC (Bld) 44.7 % Low 47-70 [facility] Nucleated red blood cell per centageOrdered By: Pa Maynard on 10-13-2024 Nucleated RBC/100 WBC (Bld) [Ratio] 0 % 0-5 [facility] PSA,Total - Annual Screenon 10-13-2024 PSA,TOT SCREEN 1.12 ng/mL Normal 0.02-4.00 [facility] Comment on above: Order Comment: Order [...] confirm baseline values. Performed By: #### L 100.0100, L3100.5310, L500.4050, L501.9910, L3500.0000 #### [facility] [address] [place], [place], [id number] Phosphoruson 10-13-2024 Phosphate [Mass/Vol] 2.8 mg/dL Normal 2.7-4.5 [facility] Comment on above: Order Comment: Order Date: 10/07/24Order Info: [id number] - CMPOrder Info: [id number] - PSA Performed By: #### L 3300.1750, L501.9985, L3100.5400, L3300.1500, L3300.3500, L506.1001, L500.4100, L3410.9992, L501.2300, L3100.5060, L501.5200, L3100.5055 ####[facility] [address] [place], [address] Platelet countOrdered By: Delfino Maynard on 10-13-2024 Platelets (Bld) [#/Vol] 127 10*3/uL Low 150-450 [facility] Potassium measurement (mass/ volume)Ordered By: Pa Maynard on 10-13-2024 Potassium (Unsp spec) [Mass/Vol] 4.1 mmol/L 3.3-5.1 [facility] RBC Auto (Bld) [#/Vol]Ordere d By: Pa Maynard on 10-13-2024 RBC (Bld) [#/Vol] 5.28 10*6/uL 4.6-6.2 [facility] Screening total cholesterol/ high density lipoprotein (HDL) cholesterol ratioOrdered By: Pa Maynard on 10-13-2024 Cholesterol.total/Torrie sterol in HDL [Mass ratio] 3.99 {ratio} [facility] Serum creatinine measurement (mass/volume)Ordered By: Pa Maynard on 10-13-2024 Creatinine [Mass/Vol] 0.99 mg/dL 0.70-1.20 [facility] Serum globulin measurementOr dered By: Pa Maynard on 10-13-2024 Globulin (S) [Mass/Vol] 2.7 g/dL 2.2-4.2 [facility] Serum glucose measurement (m ass/volume)Ordered By: Pa Maynard on 10-13-2024 Glucose [Mass/Vol] 92 mg/dL 70-99 [facility] Serum or plasma alanine valente otransferase (ALT) measurementOrdered By: Pa Maynard on 10-13-2024 ALT [Catalytic activity/Vol] 39 U/L <47 [facility] Serum or plasma albumin mendoza urement (mass/volume)Ordered By: Pa Maynard on 10-13-2024 Albumin [Mass/Vol] 4.1 g/dL 3.5-5.0 [facility] Serum or plasma albumin/glob ulin mass ratioOrdered By: Pa Maynard on 10-13-2024 Albumin/Globulin [Mass ratio] 1.5 {ratio} 0.9-2.4 [facility] Serum or plasma alkaline juan antonio sphatase measurementOrdered By: Pa Maynard on 10-13-2024 ALP [Catalytic activity/Vol] 57 U/L 40-129 [facility] Serum or plasma calcium mendoza urement (mass/volume)Ordered By: Pa Maynard on 10-13-2024 Calcium [Mass/Vol] 9.1 mg/dL 7.6-11.0 [facility] Serum or plasma cholesterol in HDL measurement (mass/volume)Ordered By: Pa Maynard on 10-13-2024 Cholesterol in HDL [Mass/Vol] 45 mg/dL >40 [facility] Comment on above: National Cholesterol Education Program (NCEP) guidelines:<40 mg/dL: Low HDL-cholesterol (major risk factor for CHD)>= 60 mg/dL: High HDL-cholesterol (negative risk factor for CHD)HDL-cholesterol is affected by a number of factors, e.g. smoking, exercise, hormones, sex and age. Serum or plasma cholesterol measurement (mass/volume)Ordered By: Pa Maynard on 10-13-2024 Cholesterol [Mass/Vol] 181 mg/dL <201 [facility] Comment on above: Cholesterol level, D esirable <200 mg/dLBorderline high cholesterol 200-239 mg/dLHigh cholesterol >=240 mg/dLRecommendations of the NCEP Adult Treatment Panel for the following risk-cutoff thresholds for the [place] population. Serum or plasma estradiol me asurement after follitropin dose (mass/volume)Ordered By: Pa Maynard on 10-13-2024 E2 post dose follitropin [Mass/Vol] 28.6 pg/mL [facility] Comment on above: MALES ADULT MALE: [...] reached by age 18. Serum or plasma free testost erone measurement (mass/volume)Ordered By: Pa Maynard on 10-13-2024 Testosterone Free [Mass/Vol] 9.78 ng/dL 5.00-21.00 [facility] Serum or plasma insulin mendoza urement (mass/volume)Ordered By: Pa Maynard on 10-13-2024 Insulin [Mass/Vol] 10.5 uIU/mL 2.6-24.9 [facility] Serum or plasma prolactin me asurement (mass/volume)Ordered By: Pa Maynard on 10-13-2024 Prolactin [Mass/Vol] 17.6 ng/mL 3.9-22.7 [facility] Serum or plasma sex hormone binding globulin measurement (moles/volume)Ordered By: Pa Maynard on 10-13-2024 Sex hormone binding globulin [Moles/Vol] 16.8 nmol/L 16.5-55.9 [facility] Comment on above: Performed at: [address] [id number] Director: Brennen Newberry PhD, Phone: [phone] at: [facility] [id number] Director: Beba Siegel MD, Phone: [phone] Serum or plasma urea nitroge n measurement (mass/volume)Ordered By: Pa Maynard on 10-13-2024 Urea nitrogen [Mass/Vol] 24 mg/dL High 4-19 [facility] Sodium levelOrdered By: Pa Maynard on 10-13-2024 Sodium [Moles/Vol] 141 mmol/L 133-145 [facility] Testosterone, totalOrdered B y: Pa Maynard on 10-13-2024 Testosterone [Mass/Vol] 286 ng/dL 264-916 [facility] Comment on above: Adult male reference interval is based on a population ofhealthy nonobese males (BMI <30) between 19 and 39 yearsold. Danita et.al. JCEM 2017,102;8153-5018. PMID:[id number]. Total proteinOrdered By: Nivia Maynard on 10-13-2024 Protein [Mass/Vol] 6.8 g/dL 5.9-8.4 [facility] Triglycerides measurementOrd ered By: Pa Maynard on 10-13-2024 Triglyceride [Mass/Vol] 109 mg/dL <199 [facility] Comment on above: The drugs N-Acetylcy steine and Metamizole may falsely depress this assay. Normal range: <150 mg/dLBorderline High: 150-199 mg/dLHigh: 200-499 mg/dLVery High: >500 mg/dL Vitamin D,25 Hydroxyon 10-13 Vitamin D 25-OH 37.0 ng/mL Normal 30-100 [facility] Comment on above: Order Comment: Order Date: 10/07/24Order Info: [id number] - CMPOrder Info: [id number] - PSA Result Comment: Elizabeth min D Status Deficiency: <20 ng/mL (50nmol/L) Insufficiency: 20-30 ng/mL (50-75 nmol/L) Sufficiency: 30-100 ng/mL (75-250 nmol/L) Toxicity: >100 ng/mL (>250 nmol/L) Performed By: #### L 3300.1750, L501.9985, L3100.5400, L3300.1500, L3300.3500, L506.1001, L500.4100, L3410.9992, L501.2300, L3100.5060, L501.5200, L3100.5055 ####[facility] [address] [place], [address] White blood cell (WBC) count Ordered By: Pa Maynard on 10-13-2024 WBC (Bld) [#/Vol] 4.4 10*3/uL 4.4-11.0 [facility] Basophil percentageOrdered B y: Pa Maynard on 03-17-2023 Basophil percentage 72 mg/dL 0-149 [facility] Bilirubin [Mass/Vol] 0.40 mg/dL 0.20-1.00 [facility] Comment on above: For patients on eltr ombopag therapy, use of Dimension [place] TBIL is not recommended. Chloride [Moles/Vol] 107 mmol/L 98-107 [facility] Glucose [Mass/Vol] 92 mg/dL 74-106 [facility] Potassium [Moles/Vol] 4.2 mmol/L 3.5-5.1 [facility] Protein [Mass/Vol] 7.1 g/dL 6.4-8.2 [facility] Sodium [Moles/Vol] 139 mmol/L 136-145 [facility] Laboratory - Chemistry and C hemistry - challengeOrdered By: Pa Maynard on 03-17-2023 Albumin/Globulin [Mass ratio] 0.9 {ratio} 0.9-2.4 [facility] ALP [Catalytic activity/Vol] 56 U/L 45-117 [facility] ALT [Catalytic activity/Vol] 42 U/L 16-61 [facility] CO2 [Moles/Vol] 28.0 mmol/L 21.0-32.0 [facility] Globulin (S) [Mass/Vol] 3.7 g/dL 2.2-4.2 [facility] Urea nitrogen/Creatinine [Mass ratio] 17.7 mg/mg 10-20 [facility] No Panel InformationOrdered By: Pa Maynard on 03-17-2023 Estimated GFR (MDRD) Amer 108 mL/min >60 [facility] Comment on above: GFR Calc Estimated GFR (MDRD) Non-Af Amer 89 mL/min >60 [facility] Comment on above: Non- GFR Calc Insulin Level 7.9 mU/L 2.6-37.6 [facility] LDL Cholesterol Particle Number [id number] nmol/L <1000 [facility] Comment on above: Low < 1000 Moderate 1000 - 1299 Borderline-High 1300 - 1599 High 1600 - 2000 Very High > 2000 LDL Cholesterol Particle Size 21.2 nm >20.5 [facility] Comment on above: INTERPRETATIVE INFORMATION PARTICLE [...] account. LDL Cholesterol, Calculated 101 mg/dL 0-99 [facility] Comment on above: Optimal < 100 Above optimal 100 - 129 Borderline 130 - 159 High 160 - 189 Very high > 189 Serum or plasma calcium mendoza urement (mass/volume)Ordered By: Pa Maynard on 03-17-2023 Calcium [Mass/Vol] 8.7 mg/dL 8.5-10.1 [facility] Serum or plasma cholesterol in HDL measurement (mass/volume)Ordered By: Pa Maynard on 03-17-2023 Cholesterol in HDL [Mass/Vol] 52 mg/dL >39 [facility] Serum or plasma cholesterol measurement (mass/volume)Ordered By: Pa Maynard on 03-17-2023 Cholesterol [Mass/Vol] 167 mg/dL 100-199 [facility] Serum or plasma creatinine m easurement (mass/volume)Ordered By: Pa Maynard on 03-17-2023 Creatinine [Mass/Vol] 0.96 mg/dL 0.70-1.30 [facility] Comment on above: The validity of the calculated GFR & GFRAA in patients over 70 years has not been determined. Clinical correlation is essential. Serum or plasma urea nitroge n measurement (mass/volume)Ordered By: Pa Maynard on 03-17-2023 Urea nitrogen [Mass/Vol] 17 mg/dL 7-18 [facility] Small low density lipoprotei n particle number measurementOrdered By: Pa Maynard on 03-17-2023 Lipoprotein.beta.subpar ticle.small [Moles/Vol] 548 nmol/L <=527 [facility] Thin prep Papanicolaou smear with manual screeningOrdered By: Pa Maynard on 03-17-2023 Thin prep Papanicolaou smear with manual screening 3.4 g/dL 3.2-5.0 [facility] Thin prep Papanicolaou smear with manual screening 38 U/L 15-37 [facility] Thin prep Papanicolaou smear with manual screening 4 5-15 [facility] Thin prep Papanicolaou smear with manual screening 31.1 umol/L >=30.5 [facility] Absolute lymphocyte countOrd ered By: Pa Maynard on 02-22-2023 Lymphocytes Auto (Unsp spec) [#/Vol] 2.32 10*3/uL 0.83-4.51 [facility] Basophil percentageOrdered B y: Pa Maynard on 02-22-2023 Basophils/100 WBC (Bld) 0.7 % 0-1 [facility] Bilirubin [Mass/Vol] 0.50 mg/dL 0.20-1.00 [facility] Comment on above: For patients on eltr ombopag therapy, use of Dimension [place] TBIL is not recommended. Chloride [Moles/Vol] 104 mmol/L 98-107 [facility] Cholesterol [Mass/Vol] 179 mg/dL <200 [facility] Comment on above: <200 mg/dL Desirable 200-240 mg/dL Borderline >240 mg/dL High Risk Eosinophils/100 WBC (Bld) 2.0 % 0-5 [facility] Glucose [Mass/Vol] 95 mg/dL 74-106 [facility] Neutrophils (Bld) [#/Vol] 6.3 10*3/uL 2.0-7.7 [facility] Neutrophils/100 WBC (Bld) 66.1 % 47-70 [facility] Potassium [Moles/Vol] 3.9 mmol/L 3.5-5.1 [facility] Protein [Mass/Vol] 7.7 g/dL 6.4-8.2 [facility] Sodium [Moles/Vol] 140 mmol/L 136-145 [facility] Testosterone [Mass/Vol] 226 ng/dL 264-916 [facility] Comment on above: Adult male reference interval is based on a population ofhealthy nonobese males (BMI <30) between 19 and 39 yearsold. ledy [place].al. JCEM 2017,102;6989-1313. PMID:[id number]. Triglyceride [Mass/Vol] 345 mg/dL <199 [facility] Comment on above: The drugs N-Acetylcy steine and Metamizole may falsely depress this assay.Serum Triglycerides Reference Interval Normal <150 mg/dL Borderline high 150 - 199 mg/dL High 200 - 499 mg/dL Very High > or = 500 mg/dL WBC (Bld) [#/Vol] 9.5 10*3/uL 4.4-11.0 [facility] Blood erythrocytes count (nu mber/volume)Ordered By: Pa Maynard on 02-22-2023 RBC (Bld) [#/Vol] 5.66 10*6/uL 4.6-6.2 [facility] Blood hemoglobin measurement (mass/volume)Ordered By: Pa Maynard on 02-22-2023 Hemoglobin (Bld) [Mass/Vol] 15.2 g/dL 13.0-16.5 [facility] Blood lymphocytes/100 leukoc ytesOrdered By: Pa Maynard on 02-22-2023 Lymphocytes/100 WBC (Bld) 24.3 % 19-41 [facility] Blood monocytes/100 leukocyt esOrdered By: Pa Maynard on 02-22-2023 Monocytes/100 WBC (Bld) 6.6 % 0-10 [facility] Blood platelet mean volumeOr dered By: Pa Maynard on 02-22-2023 Platelet mean volume (Bld) [Entitic vol] 13.1 fL 6.2-12.0 [facility] Determination of erythrocyte mean corpuscular volume (MCV)Ordered By: Pa Maynard on 02-22-2023 MCV (RBC) [Entitic vol] 84.6 fL 80-94 [facility] Free testosterone percentage Ordered By: Pa Maynard on 02-22-2023 Testosterone Free/Testosterone.total [Mass fraction] 3.55 % 1.50-4.20 [facility] Hematocrit Auto (Bld) [Volum e fraction]Ordered By: Pa Maynard on 02-22-2023 Hematocrit (Bld) [Volume fraction] 47.9 % 40-54 [facility] Laboratory - Chemistry and C hemistry - challengeOrdered By: Pa Maynard on 02-22-2023 ALP [Catalytic activity/Vol] 64 U/L 45-117 [facility] ALT [Catalytic activity/Vol] 47 U/L 16-61 [facility] CO2 [Moles/Vol] 30.0 mmol/L 21.0-32.0 [facility] Cobalamin (Vitamin B12) [Mass/Vol] 567 pg/mL 211-911 [facility] Free T4 [Mass/Vol] 0.90 ng/dL 0.76-1.46 [facility] Globulin (S) [Mass/Vol] 3.8 g/dL 2.2-4.2 [facility] Lipoprotein a [Moles/Vol] 107.6 nmol/L <75.0 [facility] Comment on above: Note: Values greater than or equal to 75.0 nmol/L may indicate an independent risk factor for CHD, but must be evaluated with caution when applied to non- populations due to the influence of genetic factors on Lp(a) across ethnicities.Performed at: - [facility] [id number] Director: Brennen Newberry PhD, Phone: [phone] at: - [facility] [address] [id number] Director: Beba Siegel MD, Phone: [phone] Urea nitrogen/Creatinine [Mass ratio] 22.7 mg/mg 10- [facility] - Hematology and Cell countsOrdered By: Pa Maynard on 02-22-2023 Erythrocyte distribution width (RBC) [Entitic vol] 42.0 fL 35.1-43.9 [facility] Erythrocyte distribution width (RBC) [Ratio] 13.5 % 11.6-14.6 [facility] Immature granulocytes/100 WBC (Bld) 0.300 % 0.0-0.9 [facility] Comment on above: IG% - Immature Granu locytes (promyelocytes, myelocytes and metamyelocytes) > 1% indicates that a LEFT SHIFT is Present. MCH (RBC) [Entitic mass] 26.9 pg 27.0-32.0 [facility] Nucleated RBC/100 WBC (Bld) [Ratio] 0 % 0-5 [facility] MCHC Auto (RBC) [Mass/Vol]Or dered By: Pa Maynard on 02-22-2023 MCHC (RBC) [Mass/Vol] 31.7 g/dL 32-36 [facility] No Panel InformationOrdered By: Pa Maynard on 02-22-2023 C-Reactive Protein High Sensitivity 0.53 mg/L <3.00 [facility] Comment on above: Low Relative Risk of CVD <1.0 mg/L Average Relative Risk of CVD 1.0 - 3.0 mg/L High Relative Risk of CVD >3.0 mg/L Estimated GFR (MDRD) Amer 107 mL/min >60 [facility] Comment on above: GFR Calc Estimated GFR (MDRD) Non-Af Amer 88 mL/min >60 [facility] Comment on above: Non- GFR Calc Free Triiodothyronine (T3) pg/dL 2.9 pg/mL 2.18-3.98 [facility] Homocysteine 6.8 umol/L 3.2-10.7 [facility] Insulin Level 38.6 mU/L 2.6-37.6 [facility] Miscellaneous Test See comment [facility] Comment on above: TEST RESULTS LIMITSA polipoprotein BApolipoprotein B 89 mg/dL <90 Desirable < 90 Borderline High 90 - 99 High 100 - 130 Very High >130 ASCVD RISK THERAPEUTIC TARGET CATEGORY APO B (mg/dL) Very High Risk <80 (if extreme risk <70) High Risk <90 Moderate Risk <90 TESTING PERFORMED AT [facility]. ORIGINAL REPORT ON FILE IN LAB CONTAINS ADDITIONAL TEST SITE INFORMATION. Prostate Specific Antigen Screen 2.18 ng/mL 0.00-4.00 [facility] Comment on above: This test was perfor med using the TPSA assay method for the[employer] chemistry system. Values obtained with differentassay methods cannot be used interchangably.When changing PSA assays in the course of monitoring apatient, additional sequential testing should be carriedout to confirm baseline values. Thyroid Stimulating Hormone (TSH) 1.36 uIU/mL 0.358-3.74 [facility] Vitamin D 25-Hydroxy 50.2 ng/mL [facility] Comment on above: Vitamin D 25(OH) Sta tus Range Deficiency <20 ng/mL (50nmol/L) Insufficiency 20 - 30 ng/mL (50 - 75 nmol/L) Sufficiency 30 - 100 ng/mL (75 - 250 nmol/L) Toxicity >100 ng/mL (>250 nmol/L) Platelets bldOrdered By: Nivia Maynard on 02-22-2023 Platelets (Bld) [#/Vol] 171 10*3/uL 150-450 [facility] Serum or plasma albumin mendoza urement (mass/volume)Ordered By: Pa Maynard on 02-22-2023 Albumin [Mass/Vol] 3.9 g/dL 3.2-5.0 [facility] Serum or plasma albumin/glob ulin mass ratioOrdered By: Pa Maynard on 02-22-2023 Albumin/Globulin [Mass ratio] 1.0 {ratio} 0.9-2.4 [facility] Serum or plasma calcium mendoza urement (mass/volume)Ordered By: Pa Maynard on 02-22-2023 Calcium [Mass/Vol] 8.8 mg/dL 8.5-10.1 [facility] Serum or plasma cholesterol in HDL measurement (mass/volume)Ordered By: Pa Maynard on 02-22-2023 Cholesterol in HDL [Mass/Vol] 50 mg/dL >40 [facility] Comment on above: The drugs N-Acetylcy steine and Metamizole may falsely depress this assay. Reference Range HDL <40 mg/dL Low HDL Cholesterol HDL >or= 60 mg/dL High HDL Cholesterol Serum or plasma cholesterol in VLDL measurement (mass/volume)Ordered By: Pa Maynard on 02-22-2023 Cholesterol in VLDL [Mass/Vol] 69 mg/dL 5-40 [facility] Serum or plasma cortisol connor surement (mass/volume)Ordered By: Pa Maynard on 02-22-2023 Cortisol [Mass/Vol] 10.40 ug/dL 3.44-22.45 [facility] Comment on above: Adult (AM) 5.27 - 22 .45 ug/dL Adult (PM) 3.44 - 16.76 ug/dLPlease note revised CORTISOL reference range effective 2019. Serum or plasma creatinine m easurement (mass/volume)Ordered By: Pa Maynard on 02-22-2023 Creatinine [Mass/Vol] 0.97 mg/dL 0.70-1.30 [facility] Comment on above: The validity of the calculated GFR & GFRAA in patients over 70 years has not been determined. Clinical correlation is essential. Serum or plasma estradiol (E 2) measurement (mass/volume)Ordered By: Pa Maynard on 02-22-2023 E2 [Mass/Vol] 43.0 pg/mL [facility] Comment on above: NORMAL REFERENCE RAN [...] on 02-22-2023 Ferritin [Mass/Vol] 43 ng/mL 26-388 [facility] Serum or plasma folate measu rement (mass/volume)Ordered By: Pa Maynard on 02-22-2023 Folate [Mass/Vol] 27.20 ng/mL 3.1-55.4 [facility] Serum or plasma low density lipoprotein (LDL) cholesterol measurement (mass/volume)Ordered By: Pa Maynard on 02-22-2023 Cholesterol in LDL [Mass/Vol] 60 mg/dL 0-130 [facility] Serum or plasma testosterone free measurement (mass/volume)Ordered By: Pa Maynard on 02-22-2023 Testosterone Free [Mass/Vol] 8.02 ng/dL 5.00-21.00 [facility] Serum or plasma urea nitroge n measurement (mass/volume)Ordered By: Pa Maynard on 02-22-2023 Urea nitrogen [Mass/Vol] 22 mg/dL 7-18 [facility] Serum or plasma uric acid me asurement (mass/volume)Ordered By: Pa Maynard on 02-22-2023 Urate [Mass/Vol] 6.1 mg/dL 3.5-7.2 [facility] Comment on above: The drugs N-Acetylcy steine and Metamizole may falsely depress this assay. Thin prep Papanicolaou smear with manual screeningOrdered By: Pa Maynard on 02-22-2023 Thin prep Papanicolaou smear with manual screening 40 U/L 15-37 [facility] Thin prep Papanicolaou smear with manual screening 6 5-15 [facility] Whole blood hemoglobin A1c/t otal hemoglobin ratio (mass fraction)Ordered By: Pa Maynard on 02-22-2023 HbA1c (Bld) [Mass fraction] 5.5 % 3.8-5.6 [facility] Comment on above: Normal < 5.7 % Predi abetic 5.7 - 6.4 % Diabetic >or= 6.5 % Please note range changes. Vital Signs Date Time Vital Sign Value Performing Clinician Faci lity 12-08-2024 08:35-0400 Body temperature 97.7 [degF] Dr. Pa Maynard MD Work Phone: [facility] 12-08-2024 08:35-0400 Diastolic blood pressure 59 mm[Hg] Dr. Pa Maynard MD Work Phone: [facility] 12-08-2024 08:35-0400 Heart rate 71 /min Dr. Pa Maynard MD Work Phone: [facility] 12-08-2024 08:35-0400 Respiratory rate 16 /min Dr. Pa Maynard MD Work Phone: [facility] 12-08-2024 08:35-0400 SaO2% (BldA) [Mass fraction] 99 % Dr. Pa Maynard MD Work Phone: [facility] 12-08-2024 08:35-0400 Systolic blood pressure 95 mm[Hg] Dr. Pa Maynard MD Work Phone: [facility] 12-08-2024 07:05-0400 Body height 187.[address] Pa Maynard MD Work Phone: [facility] 12-08-2024 07:05-0400 Body mass index (BMI) [Ratio] 26.9 kg/m2 Dr. Pa Maynard MD Work Phone: [facility] 12-08-2024 07:05-0400 Body weight [address] Pa Maynard MD Work Phone: [facility] Encounters Encounter Date Encounter Type Care Provider Facility Start: 01-06-2025 ambulatory Pa Maynard Facility:[facility] Start: 01-02-2025 End: [facility] Start: 12-08-2024 ambulatory [facility] Facility :[facility] Start: 12-08-2024 Non-patient / Non-visit [facility] DO -[facility] Start: 12-08-2024 End: 12-08-2024 Admission to same day surgery center [facility] DO -Endoscopy Work Phone: Start: 12-08-2024 End: 12-08-[address] Pa Maynard MD Work Phone: -Endoscopy Start: 11-27-2024 End: 11-27-[address] Pa Maynard MD Work Phone: -Outpatient Bone Densitometry Start: 11-27-2024 End: 11-27-[address] Pa Maynard MD -Outpatient Bone Densitometry Work Phone: Start: 11-27-2024 End: 11-27-2024 ambulatory Pa Munford Facility:[facility] Start: 10-29-2024 End: 10-29-[address] Pa Maynard MD Work Phone: -Ultrasound [facility] Start: 10-29-2024 End: 10-29-[address] Pa Maynard MD -Ultrasound [facility] Work Phone: Start: 10-29-2024 End: 10-29-2024 ambulatory Pa Maynard Facility:[facility] Start: 10-13-2024 End: 10-13-[address] Pa Maynard MD Work Phone: -Laboratory Start: 10-13-2024 End: 10-13-[address] Pa Maynard MD -Laboratory Work Phone: Start: 10-13-2024 End: 10-13-2024 ambulatory Pa Maynard Facility:[facility] Start: 03-17-2023 End: 03-17-2023 ambulatory [facility] Work Phone: Start: 03-17-2023 End: 03-17-2023 Patient encounter procedure [facility] Work Phone: Start: 02-22-2023 End: 02-22-2023 ambulatory [facility] Work Phone: Start: 02-22-2023 End: 02-22-2023 Patient encounter procedure [facility] Work Phone: Procedures Date Procedure Procedure Detail Performing Clinician Start: 11-27-2024 Body Composition - Initial Dr. Pa batista MD Work Phone: Start: 11-27-2024 Dual energy X-ray absorptiometry Dr. Nivia Maynard MD Work Phone: Start: 10-29-20[address] elast[address] of liver Dr. Nivia Maynard MD Work Phone: Start: 10-29-[address] Pa Maynard MD Work Phone: Comment on above: Test Ordered: [id number] Dihydrotestosterone Dihydrotestosterone 19 [L ] ng/dL ES Reference Range: .This test was developed and its performance characteristicsdetermined by [employer]. It has not been cleared or approvedby the Food and Drug Administration.Reference Range:Adult Male: 30 - 85Performed at: - [facility] [address] [id number] Director: Idalmis Morris MD, Phone: [phone] at: [address] [id number] Director: Brennen Newberry PhD, Phone: [phone] Start: 10-13-[address] Pa Maynard MD Work Phone: Comment on above: Test Ordered: [id number] Apolipoprotein BApo lipoprotein B 103 [H ] mg/dL Reference Range: <90 Desirable < 90 Borderline High 90 - 99 High 100 - 130 Very High >130 ASCVD RISK THERAPEUTIC TARGET CATEGORY APO B (mg/dL) Very High Risk <80 (if extreme risk <70) High Risk <90 Moderate Risk <90Performed at: [address] [id number] Director: Beba Siegel MD, Phone: [phone] at: [address] [id number] Director: Brennen Newberry PhD, Phone: [phone] Start: 10-13-[address] Pa Maynard MD Work Phone: Start: 10-13-2024 Fol[address]le stimulating hormone measurement Dr. Pa Maynard MD Work Phone: Comment on above: FEMALE:Follicular: 1.4 - 18.1 mIU/mLMidc ycle: 3.4 - 33.4 mIU/mLLuteal: 1.5 - 9.1 mIU/mLPost Menopause: 23.0 - 116.3 mIU/mLMALE: 1.4 - 18.1 mIU/mL Start: 10-13-[address] Claudia Maynard MD Work Phone: Comment on above: This test was performed using the [employer] tPSA method. Measured values of a patient sample can vary depending on the testing procedure used. PSA values determined on patient samples by different testing procedures cannot be used interchangeably. If there is a change in PSA assays while monitoring therapy, sequential testing should be performed to confirm baseline values. Start: 10-13-[address] Claudia Maynard MD Work Phone: Start: 10-13-2024 Vitamin D, 25-hydroxy measurement Dr. Delfino Maynard MD Work Phone: Comment on above: Vitamin D StatusDeficiency: <20 ng/mL (5 0nmol/L)Insufficiency: 20-30 ng/mL (50-75 nmol/L)Sufficiency: 30-100 ng/mL (75-250 nmol/L)Toxicity: >100 ng/mL (>250 nmol/L) Plan of Treatment Date Care Activity Detail Author Start: 12-08-2024 Colsc flx w/rmvl of tumor polyp lesion snare tq COLONOSCOPY W/LESION REMOVAL [facility] Start: 12-08-2024 Patient discharge [facility] Start: 10-13-2024 Prolactin measurement [facility] Start: 03-17-2023 Procedure [facility] Start: 02-22-2023 Procedure [facility] Start: 02-22-2023 [facility] Dehydroepiandrostero ne sulfate (DHEA-S) [Mass/volume] in Serum or Plasma [facility] Insulin [Mass/volume ] in Serum or Plasma [facility] Serum testosterone measurement [facility] Sex hormone binding globulin [Moles/volume] in Serum or Plasma [facility] Sex hormone binding globulin [Moles/volume] in Serum or Plasma [facility] Testosterone [Mass/v olume] in Serum or Plasma [facility] Testosterone Free [M ass/volume] in Serum or Plasma [facility] Testosterone Free [M ass/volume] in Serum or Plasma [facility] Testosterone Free [M ass/volume] in Serum or Plasma [facility] Testosterone measurement [facility] Testosterone measurement [facility] Testosterone measurement [facility] Immunizations Immunization Date Immunization Notes Care Provider Yissel bustamante 08-23-2016 tetanus toxoid, redu shelly diphtheria toxoid, and acellular pertussis vaccine, adsorbed [facility] Payers Date Payer Category Payer Unknown [id number] 2024 Self-pay [id number] 2024 Unknown [id number] Private Health Insurance A00 [id number] Unknown [id number] 2.16.8 [id number] Unknown [id number] 2.16.8 [id number] Unknown [id number] 2.16.8 [id number] Unknown [id number] 2.16.8 [id number] Unknown [id number] 2.16.8 [id number] Unknown [id number] 2.16.8 [id number] Unknown [id number] 2.16.8 [id number] Unknown [id number] 2.16.8 [id number] Unknown [id number] 2.16.8 [id number] Social History Date Type Detail Facility Start: [facility] Start: 1975 Sex Assigned At Male [facility] Start: 12-12-2017 [facility] Start: 12-01-2024 Tobacco smoking stat [facility] Never smoked tobacco (finding) [facility] Sex Male [facility] Goals Date Patient Goal Desired Activity /State Functional Status Date Assessment Result Facility 03-17-2023 Lipoprotein insulin resistance score Insulin Resistance/Diabete s Risk 42 [facility] Comment on above: INSULIN RESISTANCE M ARKER <--Insulin Sensitive Insulin Resistant--> Percentile in Reference PopulationInsulin Resistance ScoreLP-IR Score Low 25th 50th 75th High <27 27 45 63 >63LP-IR Score is inaccurate if patient is non-fasting.The LP-IR score is a laboratory developed index that hasbeen associated with insulin resistance and diabetes riskand should be used as one component of a physician'sclinical assessment.Performed at: [address] [id number] Director: Beba Siegel MD, Phone: [phone] Mental Status Date Assessment Result Facility 12-08-2024 Cognitive function Level Of Cons ciousness Follows Commands [facility] Work Phone: 12-08-2024 Cognitive function Patient Orientation Pe rson [facility] Work Phone: Clinical Notes 10-29-2024 to 12-08-2024 Note Date & Type Note Facility 12-08-2024 Consult note [facility] 12-08-2024 Procedure note [facility] 12-08-2024 Procedure note [facility] 12-08-2024 Consult note Note Date/Time December 08, 2024 6:48am [facility] Medical Records Department [address] [place] [address] Pre-Anesthesia Evaluation 12/08/24 0647 MR#: [id number] Acct: [id number] Name: JAVIER FUENTES Rep #:[id number] : 1975 49 From: Omar Lawrence MD PCP: Dr. Pa Maynard MD Status:REG SDC Y Race: C Location: [place] [address] ASA Classification* ASA Classification ASA Classification: 2 Assessment & Plan Anesthesia* Anesthesia Assessment Anesthesia Assessment: Discussed sedation and/or anesthesia options, risks, benefits, and alternatives with patient/parents/legal guardian/POA. Questions invited. The patient/parents/legal guardian/POA seems to understand and agrees to proceedwith anesthesia plan. Reviewed the physical assessment, medical history, allergy history and patient home medications list prior to surgery/procedure/anesthetic and documented any changes. Performed airway and anesthesia risk assessments. Anesthesia Type Anesthesia Type: MAC Anesthesia Focused Assessment* Airway Assessment Mouth opens: >3 cm Mallampati Score: II Labs Anesthesia Preop lab: CBC WBC, (4.4-11.0) 4.4 K/mm3 10/13/24, 08:14 RBC, (4.6-6.2) 5.28 M/mm3 10/13/24, 08:14 Hgb, (13.0-16.5) 14.5 g/dL 10/13/24, 08:14 Hct, (40-54) 45.1 % 10/13/24, 08:14 Plt Count, (150-450) 127 K/mm3 L 10/13/24, 08:14 CHEMISTRY Potassium, (3.3-5.1) 4.1 mmol/L 10/13/24, 08:14 Sodium, (133-145) 141 mmol/L 10/13/24, 08:14 Magnesium, (1.5-2.2) 2.1 mg/dL 10/13/24, 08:14 Phosphorus, (2.7-4.5) 2.8 mg/dL 10/13/24, 08:14 BUN, (4-19) 24 mg/dL H 10/13/24, 08:14 Creatinine, (0.70-1.20) 0.99 mg/dL 10/13/24, 08:14 Glucose, (70-99) 92 mg/dL 10/13/24, 08:14 TSH, (0.358-3.74) 1.36 uIU/mL 02/22/23, 15:07 COAG PT, (11.7-14.9) 13.8 SECONDS 10/28/13, 12:12 Pre-Assessment Diagnosis/Proposed Procedure Planned Operative Procedure(s): COLONOSCOPY Anesthesia History 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 When Was Last Pacemaker Check QUESTION #4 FULL TEXT: You/Your Family Experience fever (hyperthermia) with Anesthesia Last Oral Intake Last Oral intake: Last Oral Intake NPO since Meds taken in AM with sips of water? Meds patient instructed to take am of surgery PONV PONV - customer service engineer: PONV - customer service engineer Female No 12/01/24 12:41 HX of Motion Sickness No 12/01/24 12:41 HX of N/V After Surgery No 12/01/24 12:41 Non-Smoker Yes 12/01/24 12:41 Duration of Surgery greater No 12/01/24 12:41 than 60 minutes Number of Risk Factors 1 12/01/24 12:41 PONV Score Low Risk 12/01/24 12:41 Respiratory Assessment Respiratory Assessment - customer service engineer: Respiratory Tract Infection Hx - customer service engineer Hx Respiratory Tract Infection No 12/01/24 12:41 STOP Sleep Apnea STOP Sleep Apnea - customer service engineer: STOP Sleep Apnea - customer service engineer Hx Hypertension No 12/01/24 12:41 Hx Sleep Apnea No 12/01/24 12:41 CPAP BIPAP Do you snore loudly (louder No 12/01/24 12:41 than talking or can be heard Do you often feel tired/ No 12/01/24 12:41 fatigued/ sleepy during daytime? Has anyone observed you stop No 12/01/24 12:41 breathing during sleep? STOP Results Negative 12/01/24 12:41 QUESTION #5 FULL TEXT : Do you snore loudly (louder than talking or can be heard through closed doors)? 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 Specify any problems Hx of Preganancy in last 3 N/A 12/01/24 12:41 Months Nurse Filling Out Transfusion VCHRISTIN 12/01/24 12:41 & Questions: Date: 12/01/24 12/01/24 12:41 Time: 12:43 12/01/24 12:41 Patient unable to answer at this time (ie. confused, unrespo /Reproduction History /Reproductive History - customer service engineer: /Reproductive Hx- customer service engineer Hx Now Gestational Age (in weeks): EDC: Hx Hx Para Hx Section SAB PFSH Medical History Non-smoker Cardiology follow-up encounter History of echocardiogram History of stress test Non-rheumatic tricuspid valve insufficiency Obesity Abnormal celiac antibody panel Fatty liver disease, nonalcoholic Home Medications ?Medication ?Instructions ?Recorded ?Last Taken ?Type cholecalciferol (vitamin D3) 25 25 mcg PO DAILY Unknown History mcg (1,000 unit) capsule (Vitamin D3) magnesium 250 mg tablet 250 mg PO DAILY 12/01/24 Unk nown History multivitamin (Daily Multi-Vitamin 1 tab PO DAILY 12/01 Unknown History tablet) omega 2-ojw-cfq-fish oil 1,200 mg 1 cap PO DAILY 12/01 Unknown History (144 mg-216 mg) capsule (Fish Oil) Allergy/AdvReac Type Severity Reaction Status Date / Time No Known Allergies Allergy Verified 12/01/24 12:30 Family History Mother Heart disease Fibrosis Cardiomyopathy? Rheumatic Fever/ CABG CAD (coronary artery disease) Hypertension Father Hypertension Surgical History History of tonsillectomy Social History Smoking Status: Former smoker Review of Systems (Anesthesia) ROS Narrative System reviewed and no additional complaints, except as documented. 12/08/24 0648 <Electronically signed by Omar Lawrence MD > Date _ Omar Lawrence MD Cosigner Signature: Date CC: ~ Signed [facility] Work Phone: 1(127) 115-514710-13-2025 Evaluation note* Diagnosis Onset Date Resolution Status Admit Date Encounter for screening colonoscopy acute December 08 6:45am [facility] Work Phone: 1(911) 707-222510-13-2025 History and physical note [facility] Medical Records Department [address] [place] [address] History & Physical Exam 12/08/24 0750 MR#: [id number] Acct: [id number] Name: JAVIER FUENTES Rep #:[id number] : 1975 49 From: Chaitanya Rain DO PCP: Dr. Pa Maynard MD Status:[facility] Location: [place] [address] HPI - General General Date of Admission: 12/08/24 Date of Service: 12/08/24 Chief Complaint: Screening colonoscopy HPI Narrative JAVIER FUENTES, is a 49 M who presents [ ] today for screening colonoscopy. He has never a colonoscopy in the past. He is very healthy and does not take any medicines on a daily basis. [facility] Medical History Non-smoker Cardiology follow-up encounter History of echocardiogram History of stress test Non-rheumatic tricuspid valve insufficiency Obesity Abnormal celiac antibody panel Fatty liver disease, nonalcoholic Home Medications ?Medication ?Instructions ?Recorded ?Last Taken ?Type cholecalciferol (vitamin D3) 25 25 mcg PO DAILY Unknown History mcg (1,000 unit) capsule (Vitamin D3) magnesium 250 mg tablet 250 mg PO DAILY 12/01/24 Unk nown History multivitamin (Daily Multi-Vitamin 1 tab PO DAILY 12/01 Unknown History tablet) omega 7-gdo-oga-fish oil 1,200 mg 1 cap PO DAILY 12/01 Unknown History (144 mg-216 mg) capsule (Fish Oil) Allergy/AdvReac Type Severity Reaction Status Date / Time No Known Allergies Allergy Verified 12/08/24 07:04 Family History Mother Heart disease Fibrosis Cardiomyopathy? Rheumatic Fever/ CABG CAD (coronary artery disease) Hypertension Father Hypertension Surgical History History of tonsillectomy Social History Smoking Status: Former smoker ROS Constitutional Constitutional: Denies fatigue, fever(s), poor appetite, weight gain or weight loss Gastrointestinal Gastrointestinal: Denies belching, bloating, change in bowel habits, change in stool character, chewing difficulty, coffee ground emesis, constipation, cramping, diarrhea, dyspepsia, dysphagia, earlysatiety, excessive flatus, fecalincontinence, heartburn, hematemesis, hematochezia, hemorrhoids, loose stools, melena, nausea, odynophagia, rectal bleeding, tenesmus, vomiting or weight changes Vital Signs Vital Signs Vital Signs: 12/08/24 07:05 12/08/24 07:05 Temperature 97.8 F Temperature Source Temporal Pulse Rate 73 Respiratory Rate 16 Respiratory Pattern Normal Blood Pressure 116/84 H Blood Pressure Mean 94 Blood Pressure Source Monitor Blood Pressure Position Sitting Blood Pressure Location Left Arm Pulse Ox 100 Oxygen Delivery Method Room Air Weight Weight: 209 lb 7.026 oz Body Mass Index (BMI) 26.9 Physical Exam Const alert, oriented x3, no apparent distress and healthy appearing General Appearance: cooperative GI normal to inspection, nondistended, normoactive bowel sounds, soft to palpation,non-tender and non-distended Percussion: normal to percussion Rectal Exam: deferred Assessment & Plan Assessment/Plan (1) Encounter for screening colonoscopy: PLAN: 49-year-old gentleman comes in for screening colonoscopy. He was explained alternatives, riskand benefits include not withstanding bleeding, infection, subsequent perforation, need for return to . He will have an ASA of 3. 12/08/24 0751 Cosigner Signature (if applicable): CC: Dr. Pa Maynard MD; Chaitanya Rain DO~ Signed [facility]10-13-2025 [facility] Medical Records Department [address] [place] [address] History Physical Exam 12/08/24749 MR#: [id number] Acct: [id number] Name: JAVIER FUENTES Rep #: [id number] : 1975 49 From: Chaitanya Rain DO PCP: Dr. Pa Maynard MD Status:[facility] Location: [place] [address] HPI - General General Date of Admission: 12/08/24 Date of Service: 12/08/24 Chief Complaint: Screening colonoscopy HPI Narrative JAVIER FUENTES, is a 49 M who presents [ ] today for screening colonoscopy. He has never a colonoscopy in the past. He is very healthy and does not take any medicines on a daily basis. [facility] Medical History Non-smoker Cardiology follow-up encounter History of echocardiogram History of stress test Non-rheumatic tricuspid valve insufficiency Obesity Abnormal celiac antibody panel Fatty liver disease, nonalcoholic Home Medications ???Medication ???Instructions ???Recorded ???Last Taken ???Type cholecalciferol (vitamin D3) 25 25 mcg PO DAILY 12/01/24 Unknown H istory mcg (1,000 unit) capsule (Vitamin D3) magnesium 250 mg tablet 250 mg PO DAILY 12/01/24 Unknown H istory multivitamin (Daily Multi-Vitamin 1 tab PO DAILY 12/01/24 Unknown H istory tablet) omega 9-fav-laz-fish oil 1,200 mg 1 cap PO DAILY 12/01/24 Unknown H istory (144 mg-216 mg) capsule (Fish Oil) Allergy/AdvReac Type Severity Reaction Status Date / Time No Known Allergies Allergy Verified 12/08/24 07:04 Family History Mother Heart disease Fibrosis Cardiomyopathy? Rheumatic Fever/ CABG CAD (coronary artery disease) Hypertension Father Hypertension Surgical History History of tonsillectomy Social History Smoking Status: Former smoker ROS Constitutional Constitutional: Denies fatigue, fever(s), poor appetite, weight gain or weight loss Gastrointestinal Gastrointestinal: Denies belching, bloating, change in bowel habits, change in stool character, chewing difficulty, coffee ground emesis, constipation, cramping, diarrhea, dyspepsia, dysphagia, early satiety, excessive flatus, fecal incontinence, heartburn, hematemesis, hematochezia, hemorrhoids, loose stools, melena, nausea, odynophagia, rectal bleeding, tenesmus, vomiting or weight changes Vital Signs Vital Signs Vital Signs: 12/08/24 07:05 12/08/24 07:05 Temperature 97.8 F Temperature Source Temporal Pulse Rate 73 Respiratory Rate 16 Respiratory Pattern Normal Blood Pressure 116/84 H Blood Pressure Mean 94 Blood Pressure Source Monitor Blood Pressure Position Sitting Blood Pressure Location Left Arm Pulse Ox 100 Oxygen Delivery Method Room Air Weight Weight: 209 lb 7.026 oz Body Mass Index (BMI) 26.9 Physical Exam Const alert, oriented x3, no apparent distress and healthy appearing General Appearance: cooperative GI normal to inspection, nondistended, normoactive bowel sounds, soft to palpation, non-tender and non- distended Percussion: normal to percussion Rectal Exam: deferred Assessment Plan Assessment/Plan (1) Encounter for screening colonoscopy: PLAN: 49-year-old gentleman comes in for screening colonoscopy. He was explained alternatives, risk and benefits include not withstanding bleeding, infection, subsequent perforation, need for return to . He will have an ASA of 3. 12/08/24 0751 Cosigner Signature (if applicable): CC: Dr. Pa Maynard MD; Chaitanya Rain DO [facility]10[facility] Consult note [facility] Medical Records Department [address] [address] Pre-Anesthesia Evaluation 12/08/24 0647 MR#: [id number] Acct: [id number] Name: CHRISTINEJAMAJAVIER Rep #:[id number] : 1975 49 From: Omar Lawrence MD PCP: Dr. Pa Maynard MD Status:REG SD[facility] Y Race: C Location: [place] [address]- ASA Classification* ASA Classification ASA Classification: 2 Assessment & Plan Anesthesia* Anesthesia Assessment Anesthesia Assessment: Discussed sedation and/or anesthesia options, risks, benefits, and alternatives with patient/parents/legal guardian/POA. Questions invited. The patient/parents/legal guardian/POA seems to understand and agrees to proceedwith anesthesia plan. Reviewed the physical assessment, medical history, allergy history and patient home medications list prior to surgery/procedure/anesthetic and documented any changes. Performed airway and anesthesia risk assessments. Anesthesia Type Anesthesia Type: MAC Anesthesia Focused Assessment* Airway Assessment Mouth opens: >3 cm Mallampati Score: II Labs Anesthesia Preop lab: CBC WBC, (4.4-11.0) 4.4 K/mm3 10/13/24, 08:14 RBC, (4.6-6.2) 5.28 M/mm3 10/13/24, 08:14 Hgb, (13.0-16.5) 14.5 g/dL 10/13/24, 08:14 Hct, (40-54) 45.1 % 10/13/24, 08:14 Plt Count, (150-450) 127 K/mm3 L 10/13/24, 08:14 CHEMISTRY Potassium, (3.3-5.1) 4.1 mmol/L 10/13/24, 08:14 Sodium, (133-145) 141 mmol/L 10/13/24, 08:14 Magnesium, (1.5-2.2) 2.1 mg/dL 10/13/24, 08:14 Phosphorus, (2.7-4.5) 2.8 mg/dL 10/13/24, 08:14 BUN, (4-19) 24 mg/dL H 10/13/24, 08:14 Creatinine, (0.70-1.20) 0.99 mg/dL 10/13/24, 08:14 Glucose, (70-99) 92 mg/dL 10/13/24, 08:14 TSH, (0.358-3.74) 1.36 uIU/mL 02/22/23, 15:07 COAG PT, (11.7-14.9) 13.8 SECONDS 10/28/13, 12:12 Pre-Assessment Diagnosis/Proposed Procedure Planned Operative Procedure(s): COLONOSCOPY Anesthesia History 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 When Was Last Pacemaker Check QUESTION #4 FULL TEXT: You/Your Family Experience fever (hyperthermia) with Anesthesia Last Oral Intake Last Oral intake: Last Oral Intake NPO since Meds taken in AM with sips of water? Meds patient instructed to take am of surgery PONV PONV - customer service engineer: PONV - customer service engineer Female No 12/01/24 12:41 HX of Motion Sickness No 12/01/24 12:41 HX of N/V After Surgery No 12/01/24 12:41 Non-Smoker Yes 12/01/24 12:41 Duration of Surgery greater No 12/01/24 12:41 than 60 minutes Number of Risk Factors 1 12/01/24 12:41 PONV Score Low Risk 12/01/24 12:41 Respiratory Assessment Respiratory Assessment - customer service engineer: Respiratory Tract Infection Hx - customer service engineer Hx Respiratory Tract Infection No 12/01/24 12:41 STOP Sleep Apnea STOP Sleep Apnea - customer service engineer: STOP Sleep Apnea - customer service engineer Hx Hypertension No 12/01/24 12:41 Hx Sleep Apnea No 12/01/24 12:41 CPAP BIPAP Do you snore loudly (louder No 12/01/24 12:41 than talking or can be heard Do you often feel tired/ No 12/01/24 12:41 fatigued/ sleepy during daytime? Has anyone observed you stop No 12/01/24 12:41 breathing during sleep? STOP Results Negative 12/01/24 12:41 QUESTION #5 FULL TEXT : Do you snore loudly (louder than talking or can be heard through closeddoors)? 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 Specify any problems Hx of Preganancy in last 3 N/A 12/01/24 12:41 Months Nurse Filling Out Transfusion VCHRISTIN 12/01/24 12:41 & Questions: Date: 12/01/24 12/01/24 12:41 Time: 12:43 12/01/24 12:41 Patient unable to answer at this time (ie. confused, unrespo /Reproduction History /Reproductive History - customer service engineer: /Reproductive Hx- customer service engineer Hx Now Gestational Age (in weeks): EDC: Hx Hx Para Hx Section SAB PFSH Medical History Non-smoker Cardiology follow-up encounter History of echocardiogram History of stress test Non-rheumatic tricuspid valve insufficiency Obesity Abnormal celiac antibody panel Fatty liver disease, nonalcoholic Home Medications ?Medication ?Instructions ?Recorded ?Last Taken ?Type cholecalciferol (vitamin D3) 25 25 mcg PO DAILY Unknown History mcg (1,000 unit) capsule (Vitamin D3) magnesium 250 mg tablet 250 mg PO DAILY 12/01/24 Unk nown History multivitamin (Daily Multi-Vitamin 1 tab PO DAILY 12/01 Unknown History tablet) omega 6-try-flp-fish oil 1,200 mg 1 cap PO DAILY 12/01 Unknown History (144 mg-216 mg) capsule (Fish Oil) Allergy/AdvReac Type Severity Reaction Status Date / Time No Known Allergies Allergy Verified 12/01/24 12:30 Family History Mother Heart disease Fibrosis Cardiomyopathy? Rheumatic Fever/ CABG CAD (coronary artery disease) Hypertension Father Hypertension Surgical History History of tonsillectomy Social History Smoking Status: Former smoker Review of Systems (Anesthesia) ROS Narrative System reviewed and no additional complaints, except as documented. 12/08/24 0648 > Date _ Omar Lawrence MD Cosigner Signature: Date CC: ~ Signed [facility]09-03-2025 Radiology Diagnostic study note [facility] Imaging Services [address] [place] [address] [id number] ABD Limited w/ Elastography MR#: [id number] Acct: [id number] Name: JAVIER FUENTES Rep #: [id number] : 1975 M 49 From: Julito Ellington MD PCP: Dr. Pa Maynard MD Status: [facility] Study:ABD Limited w/ Elastography Date of Exa m: 10/29/24 Exam# [id number] Ordering Dr: Delfino Maynard MD PROCEDURE: ABD LIMITED W/ ELASTOGRAPHY REASON FOR EXAM: HX OF FATTY LIVER COMPARISON: Prior study dated May 15, 2013. TECHNIQUE: Procedure Code: USABDLELPARO Modality: US Procedure: ABD LIMITED W/ ELASTOGRAPHY Right upper quadrant abdominal ultrasound. Laura ElastQ Imaging shear wave elastography for non-invasive assessment of liver tissue stiffness. Laura EPIQ Elite. FINDINGS: LIVER: Size: Unremarkable Length: 17.4 cm Echotexture: Diffusely echogenic suggesting fatty infiltration Contour: Normal Lesions: None identified Elastography: EQI Med: 7.07 kPa EQI Med [facility]: 1.52 m/s IQR/Med: 17.3 %* GALLBLADDER: Normal COMMON BILE DUCT: Normal measuring 4 mm. . PANCREAS: Normal Visualized portions of the right kidney are unremarkable. No right upper quadrant ascites. US/ABD Limited w/ Elastography IMPRESSION: Vihl-[id number] hepatic fibrosis. Diffuse fatty infiltration of the liver. Reference Values: SRU <1.37 m/s (5.7kPa): No to mild fibrosis 1.37 m/s - 2.2 m/s: Moderate to severe fibrosis >2.2 m/s (15kPa): Significant fibrosis / cirrhosis METAVIR Score F2 or higher: 1.34 m/s (5.7kPa) F3 or higher: 1.55 m/s (7.3kPa) F4: 1.80 m/s (10kPa) * If the IQR/Med is >30%, the variance in the measurements is a large and the accuracy of the measurement may be in question. Reading Location: [place] [address] CC: Dr. Pa Maynard MD ~ Machine Maintenance Technician: [facility]igned [facility] Medical Records Department [address] [place] [address] Anesthesia Postop Eval II 12/08/24900 MR#: [id number] Acct: [id number] Name: JAVIER FUENTES Rep #:[id number] : 1975 49 From: Omar Lawrence MD PCP: Dr. Pa Maynard MD Status:[facility] Y Race: C Location: [place] Anesthesia Postop Eval I Sum Postop Eval Completion status Anesthesia document: Postop Eval 1 completed: Yes Anesthesia Postop Eval I Summary Anesthesia Postop Eval I Summary: Anesthesia Postop Eval I: Assessment Summary Airway patent Yes 12/08/24 08:31 [email or web address] Spontaneous unlabored Yes 12/08/24 08:31 [email or web address] respirations Mental status Asleep 12/08/24 08:31 [email or web address] nausea No 12/08/24 08:31 [email or web address] Vomiting No 12/08/24 08:31 [email or web address] Anesthesia Postop Eval I: Fluid Summary Crystalloid volume administer 500 12/08/24 08:31 [email or web address] (ml) Colloids volume administered ( ml) Blood Product volume administered (ml) Total IV fluid infused 500 12/08/24 08:31 [email or web address] Anesthesia Postop Eval I: Summary Notes Anesthesia Complication No 12/08/24 08:31 [email or web address] Anesthesia Complication Comment: Post-operative progress note Anesthesia: Postop Eval II Evaluation Mental status: Awake Pain Level: 0 nausea: No Vomiting: No 12/08/24900 > Date _ Omar Samuel Signature: Date CC: ~ Signed [facility] Author Misael Murphy [facility] Note Date/Time December 08, 2024 8 :52am [facility] Medical Records Department [address] [place] [address] Anesthesia Postop Eval I 12/08/24830 MR#: [id number] Acct: [id number] Name: JAVIER FUENTES Rep #:[id number] : 1975 49 From: Misael Murphy PCP: Dr. Pa Maynard MD Status:[facility] Y Race: C Location: [place] [address] Anesthesia: Postop Eval I Current Vital Signs Temperature: 97 F Pulse Rate: 77 Blood Pressure: 87/56 Respiratory Rate: 16 Pulse Ox: 100 Oxygen Delivery Method: Room Air Assessment Airway patent: Yes Spontaneous unlabored respirations: Yes Mental status: Asleep nausea: No Vomiting: No Anesthesia Complication: No Fluid Hydration Crystalloid volume administer (ml): 500 Total IV fluid infused: 500 Progress Note Anesthesia document: Postop Eval 1 completed: Yes 12/08/24830 <Electronically signed by Misael Murphy > Date _ Misael Samuel Signature: Date CC: ~ Signed [facility] Work Phone: Consult note Author Omar Lawrence [facility] Note Date/Time December 08, 2024 9 :01am [facility] Medical Records Department [address] [facility] [place] [address] Anesthesia Postop Eval II 12/08/24900 MR#: [id number] Acct: [id number] Name: JAVIER FUENTES Rep #:[id number] : 1975 49 From: Omar Lawrence MD PCP: Dr. Pa Maynard MD Status:[facility] Y Race: C Location: [place] Anesthesia Postop Eval I Sum Postop Eval Completion status Anesthesia document: Postop Eval 1 completed: Yes Anesthesia Postop Eval I Summary Anesthesia Postop Eval I Summary: Anesthesia Postop Eval I: Assessment Summary Airway patent Yes 12/08/24 08:31 [email or web address] Spontaneous unlabored Yes 12/08/24 08:31 [email or web address] respirations Mental status Asleep 12/08/24 08:31 [email or web address] nausea No 12/08/24 08:31 [email or web address] Vomiting No 12/08/24 08:31 [email or web address] Anesthesia Postop Eval I: Fluid Summary Crystalloid volume administer 500 12/08/24 08:31 [email or web address] (ml) Colloids volume administered ( ml) Blood Product volume administered (ml) Total IV fluid infused 500 12/08/24 08:31 [email or web address] Anesthesia Postop Eval I: Summary Notes Anesthesia Complication No 12/08/24 08:31 [email or web address] Anesthesia Complication Comment: Post-operative progress note Anesthesia: Postop Eval II Evaluation Mental status: Awake Pain Level: 0 nausea: No Vomiting: No 12/08/24900 <Electronically signed by Omar Lawrence MD > Date _ Omar Franzigner Signature: Date CC: ~ Signed [facility] Work Phone: Evaluation noteNo assessment information available [facility] Work Phone: History and physical note Author Chaitanya Rain [facility] Note Date/Time December 08, 2024 7 :51am [facility] Medical Records Department [address] [place] [address] History & Physical Exam 12/08/240 MR#: [id number] Acct: [id number] Name: JAVIER FUENTES Rep #:[id number] : 1975 49 From: Chaitanya Rain DO PCP: Dr. Pa Maynard MD Status:[facility] Location: [place] [address] HPI - General General Date of Admission: 12/08/24 Date of Service: 12/08/24 Chief Complaint: Screening colonoscopy HPI Narrative JAVIER FUENTES, is a 49 M who presents [ ] today for screening colonoscopy. He has never a colonoscopy in the past. He is very healthy and does not take any medicines on a daily basis. [facility] Medical History Non-smoker Cardiology follow-up encounter History of echocardiogram History of stress test Non-rheumatic tricuspid valve insufficiency Obesity Abnormal celiac antibody panel Fatty liver disease, nonalcoholic Home Medications ?Medication ?Instructions ?Recorded ?Last Taken ?Type cholecalciferol (vitamin D3) 25 25 mcg PO DAILY Unknown History mcg (1,000 unit) capsule (Vitamin D3) magnesium 250 mg tablet 250 mg PO DAILY 12/01/24 Unk nown History multivitamin (Daily Multi-Vitamin 1 tab PO DAILY 12/01 Unknown History tablet) omega 2-mcf-fhn-fish oil 1,200 mg 1 cap PO DAILY 12/01 Unknown History (144 mg-216 mg) capsule (Fish Oil) Allergy/AdvReac Type Severity Reaction Status Date / Time No Known Allergies Allergy Verified 12/08/24 07:04 Family History Mother Heart disease Fibrosis Cardiomyopathy? Rheumatic Fever/ CABG CAD (coronary artery disease) Hypertension Father Hypertension Surgical History History of tonsillectomy Social History Smoking Status: Former smoker ROS Constitutional Constitutional: Denies fatigue, fever(s), poor appetite, weight gain or weight loss Gastrointestinal Gastrointestinal: Denies belching, bloating, change in bowel habits, change in stool character, chewing difficulty, coffee ground emesis, constipation, cramping, diarrhea, dyspepsia, dysphagia, early satiety, excessive flatus, fecalincontinence, heartburn, hematemesis, hematochezia, hemorrhoids, loose stools, melena, nausea, odynophagia, rectal bleeding, tenesmus, vomiting or weight changes Vital Signs Vital Signs Vital Signs: 12/08/24 07:05 12/08/24 07:05 Temperature 97.8 F Temperature Source Temporal Pulse Rate 73 Respiratory Rate 16 Respiratory Pattern Normal Blood Pressure 116/84 H Blood Pressure Mean 94 Blood Pressure Source Monitor Blood Pressure Position Sitting Blood Pressure Location Left Arm Pulse Ox 100 Oxygen Delivery Method Room Air Weight Weight: 209 lb 7.026 oz Body Mass Index (BMI) 26.9 Physical Exam Const alert, oriented x3, no apparent distress and healthy appearing General Appearance: cooperative GI normal to inspection, nondistended, normoactive bowel sounds, soft to palpation,non-tender and non-distended Percussion: normal to percussion Rectal Exam: deferred Assessment & Plan Assessment/Plan (1) Encounter for screening colonoscopy: PLAN: 49-year-old gentleman comes in for screening colonoscopy. He was explained alternatives, risk and benefits include not withstanding bleeding, infection, subsequent perforation, need for return to . He will have an ASA of 3. 12/08/24 0751 <Electronically signed by Chaitanya Rain DO> Cosigner Signature (if applicable): CC: Dr. Pa Maynard MD; Chaitanya Rain DO~ Signed [facility] Work Phone: Reason for referral (narrative)No reason for referral information availableWUniversity [facility]als [facility] Work Phone: Family History No Family History Records Found Relationship Condition Age at Onset Recorded Date/T tami mother Cardiac disease Unknown Coronary artery disease Unknown Hypertension Unknown father Hypertension Unknown Advance Directives No Advanced Directives Records Found Advance Directive Response Recorded Date/ Time Living Will No August 23, 2016 8:06pm Power of Plate Corrector No August 23 8:06pm Advance Directive Response Recorded Date/ Time Do you have a Healthcare Power of Plate Corrector? Yes December 01, 2024 12:41pm Chief Complaint and Reason for Visit Chief Complaint Admit Date fatty liver October 29, 2024 7:08am Chief Complaint Admit Date fatty liver October 29, 2024 7:08am Fatty (change of) liver, not elsewhere c lassified November 27, 2024 8:09am METABOLIC DYSFUNCTION November 27, 2024 8:11am Reason for Visit Admit Date Encounter for screening colonoscopy Oct2024 6:45am Summary Purpose Additional Source Comments Care Teams [...] October 13, 2024 End: October 13, 2024 Team Status: Active Member Role/Relationship Status Dates Dr. Pa Maynard MD Primary Care Provider Active Team Status: Inactive Member Role/Relationship Status Dates Dr. Pa Maynard MD Primary Care Provider Active Start: October 29, 2024 End: October 29, 2024 Dr. Pa Maynard MD Attending Provider Active St art: October 29, 2024 End: October 29, 2024 Dr. Pa Maynard MD Referring Provider Active St art: October 29, 2024 End: October 29, 2024 Team Status: Active Member Role/Relationship Status Dates Dr. Pa Maynard MD Primary care physician Active Team Status: Inactive Member Role/Relationship Status Dates Dr. Pa Maynard MD Primary care physician Active Start: October 13, 2024 End: October 13, 2024 Dr. Pa Maynard MD Attending physician Active S tart: October 13, 2024 End: October 13, 2024 Team Status: Inactive Member Role/Relationship Status Dates Dr. Pa Maynard MD Primary care physician Active Start: October 29, 2024 End: October 29, 2024 Dr. Pa Maynard MD Attending physician Active S tart: October 29, 2024 End: October 29, 2024 Dr. Pa Maynard MD Referring Provider Active St art: October 29, 2024 End: October 29, 2024 Team Status: Inactive Member Role/Relationship Status Dates Dr. Pa Maynard MD Primary care physician Active Start: November 27, 2024 End: November 27, 2024 Dr. Pa Maynard MD Attending physician Active S tart: November 27, 2024 End: November 27, 2024 Dr. Pa Maynard MD Referring Provider Active St art: November 27, 2024 End: November 27, 2024 Team Status: Inactive Member Role/Relationship Status Dates Dr. Pa Maynard MD Primary care physician Active Start: November 27, 2024 End: November 27, 2024 Dr. Pa Maynard MD Attending physician Active S tart: November 27, 2024 End: November 27, 2024 Dr. Pa Maynard MD Referring Provider Active St art: November 27, 2024 End: November 27, 2024 Team Status: Inactive Member Role/Relationship Status Dates Dr. Pa Maynard MD Primary care physician Active Start: December 08, 2024 End: December 08, 2024 Dr. Pa Maynard MD Referring Provider Active St art: December 08, 2024 End: December 08, 2024 Dr. Chaitanya Rain DO Attending physician Active Start: December 08, 2024 End: December 08, 2024 Team Status: Active Member Role/Relationship Status Dates Dr. Pa Maynard MD Primary care physician Active Start: December 08, 2024 Dr. Pa Maynard MD Referring Provider Active St art: December 08, 2024 Dr. Chaitanya Rain DO Attending physician Active Start: December 08, 2024 Dr. Chaitanya Rain , DO Nurse Practitioner Active Start: December 08, 2024 Goals (unrecognized section and content) Goals may be documented in a n alternate sectionGoals may be documented in an alternate sectionGoals may be documented in an alternate sectionGoals may be documented in an alternate section (unrecognized sect ion and content) No Status Records Found INFORMATION SOURCE (unrecogn ized section and content) DATE CREATED AUTHOR 01/07/2025 [facility] FOR RECORDS PERTAINING TO PATIENTS WHO ARE [...] BE BASED ON THE PRIMARY CLINICAL RECORDS. [employer] provides no warranty or guarantee of the accuracy or completeness of information in this document.
[2025-01-12 08:08] LABS: Hematocrit 43.6 % (40-54); Hemoglobin 14.3 g/dL (13.0-16.5); Immature Granulocytes Count 0.010 X10^3/uL (0.0-0.0); Mean Corp Hgb Conc 32.8 g/dL (32-36); Mean Corpuscular Volume 84.2 fL (80-94); Mean Platelet Vol. 13.9 fl (6.2-12.0); NRBC Flagged by Analyzer 0 % (0-5); Platelet Count 118 K/mm3 (150-450); RBC Distribution Width CV 13.1 % (11.6-14.6); RBC Distribution Width SD 40.3 fl (35.1-43.9); Red Blood Count 5.18 M/mm3 (4.6-6.2); White Blood Count 4.2 K/mm3 (4.4-11.0)
[2025-01-12 08:14] LABS: Prothrombin Time (Protime)PT. 14.0 SECONDS (11.7-14.9)
[2025-01-12 08:29] LABS: Ammonia < 10.0 umol/L (16-60)
[2025-01-12 08:35] LABS: AST(SGOT) 45 U/L (<=37); Alanine Aminotransfer ALT/SGPT 47 U/L (<=46); Albumin, Serum 4.2 g/dL (3.5-5.0); Alkaline Phosphatase 55 U/L (40-129); Anion Gap 9 (5-15); BUN 22 mg/dL (4-19); BUN/Creat Ratio 22.6 RATIO (10-20); Calcium,Total 9.3 mg/dL (7.6-11.0); Carbon Dioxide 26.4 mmol/L (21.0-32.0); Chloride 106 mmol/L (98-108); Globulin 2.7 g/dL (2.2-4.2); Glucose 102 mg/dL (70-99); Potassium 4.1 mmol/L (3.3-5.1)
[2025-01-12 08:46] LABS: Ferritin 59 ng/mL (37-417); Iron Binding Capacity,Total 377 ug/dL (250-450)
[2025-01-12 09:23] LABS: CRP < 3.00 mg/L (0.0-3.0); Iron 72 ug/dL (65-175); Iron Binding Capacity,Unsat 305 ug/dL (228-428); LDH 167 U/L (87-241)
[2025-01-14 12:09] LABS: Anti-Chromatin <0.2 AI (0.0-0.9); Anti-Jo <0.2 AI (0.0-0.9); Anti-dsDNA Ab <1 IU/mL (0-9); Egg, Whole <0.10 kU/L (Class 0); Mussels <0.10 kU/L (Class 0); SJOGREN'S Anti-SS-A test < 0.2 AI (0.0-0.9); SJOGREN'S Anti-SS-B test < 0.2 AI (0.0-0.9)
[2025-01-15 12:09] LABS: Testosterone, % Free 3.31 % (1.50-4.20); Testosterone, Free 9.70 ng/dL (5.00-21.00)
[2025-01-15 14:09] LABS: Angiotensin Convert Enzyme 47 U/L (14-82); Anti-Smooth Muscle ABS 15 Units (0-19); Copper, Serum or Plasma 78 ug/dL (69-132); Cytoplasmic Ab (C-ANCA) <1:20 titer (Neg:<1:20); HEPATITIS B SURFACE AG Negative (Negative); Hep C Antibodies Non Reactive (Non Reactive); Perinuclear Ab (P-ANCA) <1:20 titer (Neg:<1:20); Transferrin 320 mg/dL (177-329)
== END | disposition home or self-care (01) ==
LOC: LAB 07:08
PROVIDERS: Internal Medicine Gastroenterology; PCP Family Medicine; Referring Provider Family Medicine; Visit Provider Family Medicine
DX: R79.89 Other specified abnormal findings of blood chemistry (principal); K75.81 Nonalcoholic steatohepatitis (NASH)
CPT/HCPCS: 36415; 80053; 80074; 82140; 82164; 82390; 82525; 82728; 83010; 83516; 83540; 83550; 83615; 84402; 84403; 84466; 85025; 85610; 85652; 86003; 86005; 86037; 86140; 86200; 86225; 86235; 86431